=== PATIENT | female | born 1955 | race Caucasian/White ===

== ENCOUNTER 2019-10-12 19:00 | Inpatient (IN) | payer MEDICARE, MEDICAID ==
[~2019-10-12] VITALS: Ht 154.9 cm; Wt 77.5 kg
[2019-10-12] MEDS ORDERED: IV RINGERS SOLUTION,LACTATED 1,000 ML IV SCH (19:16)
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
[2019-10-12 19:44] LABS: BARBITURATES NEG (NEG); BENZODIAZEPINES POS (NEG); CANNABINOIDS NEG (NEG); COCAINE NEG (NEG); METHADONE NEG (NEG); OPIATES POS (NEG); PHENCYCLIDINE NEG (NEG)
[2019-10-12 19:48] LABS: AMPHETAMINE/METHAMPHETAMINE NEG (NEG)
[2019-10-12 20:05] LABS: BILIRUBIN,URINE NEG (NEG); CLARITY,URINE CLOUDY; COLOR,URINE AMBER; GLUCOSE,URINE NEG (NEG); NITRITE,URINE POS (NEG)
[2019-10-12 20:06] LABS: BACTERIA,URINE MANY /HPF (0-FEW); SQUAMOUS EPITHELIAL CELL,UR MANY /LPF
[2019-10-12 20:11] LABS: BASO # 0.1 x10^3/uL (0.0-0.2); BASO % 1 % (0-3); EOS # 0.3 x10^3/uL (0.0-0.7); EOS % 5 % (0-3); HEMATOCRIT 35.2 % (36.0-47.0); HEMOGLOBIN 11.9 g/dL (12.0-15.5); LYMPH # 0.9 x10^3/uL (1.0-4.8); LYMPH % 15 % (24-48); MEAN CORPUSCULAR HEMOGLOBIN 30 pg (25-35); MEAN CORPUSCULAR HGB CONC 34 g/dL (31-37); MEAN CORPUSCULAR VOLUME 89 fL (79-100); MONO % 16 % (0-9); NEUT # 3.8 x10^3uL (1.8-7.7); NEUT % 62 % (31-73); PLATELET COUNT 358 x10^3/uL (140-400); RED BLOOD COUNT 3.95 x10^6/uL (3.50-5.40); RED CELL DISTRIBUTION WIDTH 14.7 % (11.5-14.5); WHITE BLOOD COUNT 6.1 x10^3/uL (4.0-11.0)
[2019-10-12 20:18] LABS: CREATININE 0.9 mg/dL (0.6-1.0); GFR 63.2; POTASSIUM 4.3 mmol/L (3.5-5.1)
[2019-10-12 20:30] LABS: ALBUMIN 3.5 g/dL (3.4-5.0); DIRECT BILIRUBIN 0.3 mg/dL (0.0-0.2); MAGNESIUM 2.2 mg/dL (1.8-2.4); TOTAL BILIRUBIN 0.6 mg/dL (0.2-1.0); TOTAL PROTEIN 6.7 g/dL (6.4-8.2)
[2019-10-12] MEDS ORDERED: SODIUM BICARB ADULT 8.4% 50 MEQ/50 ML DISP.SYRIN. IV ONE (20:30)
[2019-10-12] MEDS ORDERED: SMZ/TMP 800/160MG TABLET. PO ONE (20:30)
[2019-10-12] MEDS ORDERED: LORazepam 1 MG TABLET PO ONE (20:30)
--- NOTE | 2019-10-12 20:30 | EKG ---
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
--- NOTE | 2019-10-12 20:40 | RAD ---
Exam: Chest one view INDICATION: Retention, irregular heartbeat TECHNIQUE: Frontal view of the chest Comparisons: None FINDINGS: Heart is enlarged. Pulmonary vessels are within normal limits. The lung and pleural spaces are clear. IMPRESSION: No acute pulmonary process. Electronically signed by: Stephanie Cruz MD (10/12/2019 8:37 PM) [id number]
--- NOTE | 2019-10-12 20:41 | RAD ---
EXAM: CT HEAD WITHOUT CONTRAST. HISTORY: Altered mental status. TECHNIQUE: Computed tomography of the head was performed without intravenous contrast. One or more of the following individualized dose reduction techniques were utilized for this examination: 1. Automated exposure control. 2. Adjustment of the mA and/or kV according to patient size. 3. Use of iterative reconstruction technique. COMPARISON: None. FINDINGS: There is no intracranial hemorrhage. Fernandez-white differentiation is preserved. The ventricles are normal in size and position. The visualized paranasal sinuses appear clear. The orbits are unremarkable. The temporal bones are unremarkable. The calvarium reveals no suspicious lesions. IMPRESSION: 1. No acute intracranial findings. Electronically signed by: Jaime Gabriel MD (10/12/2019 8:38 PM) [facility]
--- NOTE | 2019-10-12 20:44 | RAD ---
EXAM: LEFT ANKLE 3 VIEWS. HISTORY: Fracture fixation, pain COMPARISON: None. FINDINGS: Three views of the left ankle are obtained. There are changes of internal fixation of a distal tibial fracture with an antegrade intramedullary nail fixed proximally and distally by 2 screws. There is one cortical width lateral displacement of the distal fracture fragment. There is an oblique fracture of the distal fibular metaphysis with one cortical width lateral displacement of the distal fracture fragment. There is early periosteal reaction. The joint spaces and alignment of the knee and ankle appear maintained. There are small plantar and posterior calcaneal spurs. IMPRESSION: 1. Early healing of tibial and fibular fractures as detailed above. Electronically signed by: Jaime Gabriel MD (10/12/2019 8:42 PM) [facility]
[2019-10-12] MEDS ORDERED: ACETAMINOPHEN 325 MG TABLET PO PRN (20:45)
[2019-10-12] MEDS ORDERED: HYDROXYCHLOROQUINE 200 MG TABLET PO SCH (21:00)
[2019-10-12] MEDS ORDERED: SMZ/TMP 800/160MG TABLET. PO SCH (21:00)
[2019-10-12] MEDS: ENOXAPARIN ** NOTE DOSE ** SYRINGE SQ SCH (21:30)
[2019-10-12 22:37] VITALS: BP 162/100
[2019-10-12] MEDS ORDERED: OLAN15TA3 PO (23:29)
[2019-10-12] MEDS ORDERED: MELA3TAB4 PO (23:29)
[2019-10-12] MEDS ORDERED: PROP20TA PO (23:29)
[2019-10-12] MEDS ORDERED: TRAZ150T49 PO (23:29)
[2019-10-12] MEDS ORDERED: DEXT1CAP PO (23:29)
[2019-10-12] MEDS ORDERED: LOPE2TAB27 PO ×2 (23:29)
[2019-10-12] MEDS ORDERED: [UNRECOGNIZED DRUG - CODE] PO (23:29)
[2019-10-12] MEDS ORDERED: DIPH50CA PO (23:29)
[2019-10-12] MEDS ORDERED: HALO5TAB PO (23:29)
[2019-10-12] MEDS ORDERED: OMEP20CA16 PO (23:29)
[2019-10-12] MEDS ORDERED: MAG-95 PO (23:29)
[2019-10-12] MEDS ORDERED: MV-M1CAP15 PO (23:29)
[2019-10-12] MEDS ORDERED: MAGN400O7 PO (23:29)
[2019-10-12] MEDS ORDERED: OLAN5TAB9 PO (23:29)
[2019-10-12] MEDS ORDERED: ACET500T68 PO (23:29)
[2019-10-12] MEDS ORDERED: BISM262O17 PO (23:29)
[2019-10-12] MEDS ORDERED: VILA40TA PO (23:29)
[2019-10-12] MEDS ORDERED: DIVA500T17 PO (23:29)
[2019-10-12] MEDS ORDERED: CLON1TAB PO (23:29)
[2019-10-12] MEDS ORDERED: ASPI-630 PO (23:29)
[2019-10-12] MEDS ORDERED: BENZ200C47 PO (23:29)
[2019-10-12] MEDS ORDERED: BUSP5TAB PO (23:29)
[2019-10-12] MEDS ORDERED: OXCA600T9 PO (23:29)
[2019-10-12] MEDS ORDERED: MAGNESIUM HYDROXIDE 2,400 MG/30 ML ORAL.SUSP. PO PRN (23:30)
[2019-10-12] MEDS ORDERED: BISMUTH SUBSALICYLATE 262 MG/15 ML ORAL.SUSP 236ML BOTTLE. PO PRN (23:30)
[2019-10-12] MEDS ORDERED: LOPERAMIDE HCL 4 MG PO PRN (23:30)
[2019-10-12] MEDS ORDERED: MAG HYDROX/AL HYDROX/SIMETH 30 ML ORAL.SUSP PO PRN (23:30)
[2019-10-12] MEDS ORDERED: guaiFENesin DM 200MG/20MG 10 ML SYRUP PO PRN (23:45)
[2019-10-12] MEDS ORDERED: LOPERAMIDE 2 MG CAPSULE PO PRN (23:45)
[2019-10-13] MEDS: HALOPERIDOL 5 MG TABLET PO PRN (00:25)
[2019-10-13] MEDS ORDERED: traZODone 50 MG TABLET. PO ONE (00:30)
[2019-10-13] MEDS ORDERED: OLANZapine 2.5 MG TABLET PO ONE (00:30)
[2019-10-13] MEDS ORDERED: diphenhydrAMINE HCL 25 MG CAPSULE PO ONE ×2 (00:30→20:00)
[2019-10-13] MEDS ORDERED: DIVALPROEX ER 500 MG TAB.ER.24H PO ONE (00:30)
[2019-10-13] MEDS ORDERED: MAGNESIUM HYDROXIDE 2,400 MG/30 ML ORAL.SUSP. PO PRN (01:45)
[2019-10-13] MEDS ORDERED: MAG HYDROX/AL HYDROX/SIMETH 30 ML ORAL.SUSP PO PRN (01:45)
[2019-10-13] MEDS: ACETAMINOPHEN 325 MG TABLET PO PRN ×2 (05:11→08:13)
[2019-10-13 05:28] VITALS: BP 147/82
[2019-10-13 07:23] LABS: BASO % 0 % (0-3); EOS # 0.1 x10^3/uL (0.0-0.7); EOS % 1 % (0-3); HEMATOCRIT 33.8 % (36.0-47.0); HEMOGLOBIN 11.6 g/dL (12.0-15.5); LYMPH # 0.8 x10^3/uL (1.0-4.8); LYMPH % 10 % (24-48); MEAN CORPUSCULAR HEMOGLOBIN 31 pg (25-35); MEAN CORPUSCULAR HGB CONC 34 g/dL (31-37); MEAN CORPUSCULAR VOLUME 90 fL (79-100); MONO % 12 % (0-9); NEUT # 6.3 x10^3uL (1.8-7.7); NEUT % 77 % (31-73); PLATELET COUNT 401 x10^3/uL (140-400); RED BLOOD COUNT 3.77 x10^6/uL (3.50-5.40); RED CELL DISTRIBUTION WIDTH 14.6 % (11.5-14.5); WHITE BLOOD COUNT 8.2 x10^3/uL (4.0-11.0)
[2019-10-13 07:34] LABS: ALBUMIN 3.3 g/dL (3.4-5.0); ALBUMIN/GLOBULIN RATIO 0.9 (1.0-1.7); ALK PHOS 248 U/L (46-116); ALT (SGPT) 26 U/L (14-59); ANION GAP 10 (6-14); AST (SGOT) 19 U/L (15-37); BLOOD UREA NITROGEN 11 mg/dL (7-20); BUN/CREATININE RATIO 12 (6-20); CALCIUM 8.6 mg/dL (8.5-10.1); CARBON DIOXIDE 27 mmol/L (21-32); CHLORIDE 91 mmol/L (98-107); CREATININE 0.9 mg/dL (0.6-1.0); GFR 63.2; GLUCOSE 259 mg/dL (70-99); MAGNESIUM 2.1 mg/dL (1.8-2.4); POTASSIUM 4.1 mmol/L (3.5-5.1); SODIUM 128 mmol/L (136-145); TOTAL BILIRUBIN 0.7 mg/dL (0.2-1.0); TOTAL PROTEIN 6.8 g/dL (6.4-8.2)
[2019-10-13 07:38] LABS: VAL ACID 29 mcg/mL (50-100)
[2019-10-13] MEDS ORDERED: VILAZODONE HCL 20 MG PO SCH (08:00)
[2019-10-13] MEDS: busPIRone 5 MG TABLET. PO SCH ×2 (08:13→19:52)
[2019-10-13] MEDS: BENZONATATE 100 MG CAPSULE. PO SCH ×3 (08:13→19:53)
[2019-10-13] MEDS: LACTOBACILLUS RHAMNOSUS GG 1 CAPSULE. PO SCH ×2 (08:13→19:52)
[2019-10-13] MEDS: ASPIRIN CHEWABLE 81 MG TABLET. PO SCH (08:14)
[2019-10-13] MEDS: clonazePAM 1 MG TABLET PO SCH ×3 (08:14→19:52)
[2019-10-13] MEDS: ENOXAPARIN ** NOTE DOSE ** SYRINGE SQ SCH (08:16)
[2019-10-13] MEDS: MULTIVITAMIN with MINERAL TABLET. PO SCH (08:16)
[2019-10-13] MEDS: PANTOPRAZOLE 40 MG TABLET. PO SCH (08:17)
[2019-10-13] MEDS: OLANZapine 5 MG TABLET PO SCH ×2 (08:17→19:50)
[2019-10-13] MEDS ORDERED: SMZ/TMP 800/160MG TABLET. PO SCH (09:00)
[2019-10-13] MEDS ORDERED: HYDROXYCHLOROQUINE 200 MG TABLET PO SCH (09:00)
[2019-10-13] MEDS: DEXTROMETHORPHAN/QUINIDINE 20/10MG CAPSULE. PO SCH ×2 (12:23→19:51)
[2019-10-13] MEDS: PROPRANOLOL 20 MG TABLET. PO SCH ×2 (12:24→19:50)
--- NOTE | 2019-10-13 12:48 | RAD ---
EXAMINATION: VENOUS LOWER EXTREMITY LEFT HISTORY: Left lower extremity swelling. Fracture involving the left lower extremity with reported surgery. COMPARISON/CORRELATION: None FINDINGS: Left lower extremity duplex venous ultrasound exam was performed. Grayscale, color Doppler, and spectral Doppler imaging was performed. Compression and augmentation was performed. The left common femoral vein, superficial femoral vein, popliteal vein, and saphenofemoral junction are normal with no evidence of deep venous thrombus. Visualization of the peroneal veins is limited. Visualized left calf veins are unremarkable. Normal compressibility and augmentation is evident. IMPRESSION: Normal left lower extremity duplex ultrasound exam. No evidence of deep venous thrombus involving the left lower extremity. Electronically signed by: Pawel Kwong MD (10/13/2019 12:45 PM) [id number]
[2019-10-13] MEDS: oxyCODONE IR 5 MG TABLET PO PRN ×2 (14:23→19:51)
[2019-10-13 16:03] VITALS: BP 138/76
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
[2019-10-13 19:07] LABS: THYROXINE 7.5 ug/dL (4.5-12.0)
[2019-10-13] MEDS: CEFDINIR 300 MG CAPSULE PO SCH (19:50)
[2019-10-13] MEDS: traZODone 150 MG TABLET. PO SCH (19:50)
[2019-10-13] MEDS ORDERED: MELATONIN 3 MG TABLET PO SCH (21:00)
[2019-10-13] MEDS ORDERED: DIVALPROEX ER 500 MG TAB.ER.24H PO SCH (21:00)
[2019-10-13] MEDS ORDERED: diphenhydrAMINE HCL 25 MG CAPSULE PO SCH (21:00)
--- NOTE | 2019-10-13 22:20 | PDOC ---
Exam Note: John Note: Please also refer to the separate dictated note~for this date of service dictated separately.~Patient seen individually. Discussed the patient with Nursing staff reviewed the chart.~Reviewed interim history and current functioning. Reviewed vital signs,~Labs/ Radiology~and current medications noted below. Continue current treatment with the changes noted in the dictated addendum note Assessment: Vital Signs/I&O: Vital Signs Date Time Temp Pulse Resp B/P (MAP) Pulse Ox O2 Delivery O2 Flow Rate FiO2 10/13/19 19:50 84 138/76 10/13/19 16:03 97.7 20 96 10/12/19 22:37 Room Air I & O 10/12/19 10/12/19 10/13/19 15:00 23:00 07:00 Intake Total 200 ml Balance 200 ml Labs: Laboratory Tests Test 10/13/19 06:42 White Blood Count 8.2 x10^3/uL (4.0-11.0) Red Blood Count 3.77 x10^6/uL (3.50-5.40) Hemoglobin 11.6 g/dL (12.0-15.5) L Hematocrit 33.8 % (36.0-47.0) L Mean Corpuscular Volume 90 fL (79-100) Mean Corpuscular Hemoglobin 31 pg (25-35) Mean Corpuscular Hemoglobin Concent 34 g/dL (31-37) Red Cell Distribution Width 14.6 % (11.5-14.5) H Platelet Count 401 x10^3/uL (140-400) H Neutrophils (%) (Auto) 77 % (31-73) H Lymphocytes (%) (Auto) 10 % (24-48) L Monocytes (%) (Auto) 12 % (0-9) H Eosinophils (%) (Auto) 1 % (0-3) Basophils (%) (Auto) 0 % (0-3) Neutrophils # (Auto) 6.3 x10^3uL (1.8-7.7) Lymphocytes # (Auto) 0.8 x10^3/uL (1.0-4.8) L Monocytes # (Auto) 1.0 x10^3/uL (0.0-1.1) Eosinophils # (Auto) 0.1 x10^3/uL (0.0-0.7) Basophils # (Auto) 0.0 x10^3/uL (0.0-0.2) Sodium Level 128 mmol/L (136-145) L Potassium Level 4.1 mmol/L (3.5-5.1) Chloride Level 91 mmol/L (98-107) L Carbon Dioxide Level 27 mmol/L (21-32) Anion Gap 10 (6-14) Blood Urea Nitrogen 11 mg/dL (7-20) Creatinine 0.9 mg/dL (0.6-1.0) Estimated GFR (Cockcroft-Gault) 63.2 BUN/Creatinine Ratio 12 (6-20) Glucose Level 259 mg/dL (70-99) H Calcium Level 8.6 mg/dL (8.5-10.1) Magnesium Level 2.1 mg/dL (1.8-2.4) Total Bilirubin 0.7 mg/dL (0.2-1.0) Aspartate Amino Transferase (AST) 19 U/L (15-37) Alanine Aminotransferase (ALT) 26 U/L (14-59) Alkaline Phosphatase 248 U/L (46-116) H Total Protein 6.8 g/dL (6.4-8.2) Albumin 3.3 g/dL (3.4-5.0) L Albumin/Globulin Ratio 0.9 (1.0-1.7) L Valproic Acid Level 29 mcg/mL (50-100) L Valproic Acid Last Dose Date 10/13/19 Valproic Acid Last Dose Time 0000 Current Medications: Meds: Current Medications Medications (Trade) Dose Ordered Sig/Yuki Route PRN Reason Start Time Stop Time Status Last Admin Dose Admin Trimethoprim/ Sulfamethoxazole (Bactrim Ds) 1 tab BID PO 10/13/19 09:00 10/13/19 14:06 DC 10/13/19 08:13 Aspirin (Aspirin Chewable) 81 mg DAILY PO 10/13/19 09:00 10/13/19 08:14 Buspirone HCl (Buspar) 5 mg BID PO 10/13/19 09:00 10/13/19 19:52 Clonazepam (KlonoPIN) 1 mg TID PO 10/13/19 09:00 10/13/19 19:52 Dextromethorphan/ Quinidine (Nuedexta 20-10 Mg Capsule) 1 cap BID PO 10/13/19 09:00 10/13/19 19:51 Divalproex Sodium (Depakote Er) 500 mg QHS PO 10/13/19 21:00 10/13/19 19:49 Haloperidol (Haldol) 5 mg PRN TID PRN PO ANXIETY / AGITATION 10/12/19 23:30 10/13/19 00:25 Melatonin (Melatonin) 12 mg QHS PO 10/13/19 21:00 10/13/19 19:51 Olanzapine (ZyPREXA) 5 mg DAILY PO 10/13/19 09:00 10/13/19 08:17 Propranolol HCl (Inderal) 20 mg BID PO 10/13/19 09:00 10/13/19 19:50 Trazodone HCl (Desyrel) 150 mg QHS PO 10/13/19 21:00 10/13/19 19:50 Benzonatate (Tessalon Perle) 200 mg [id number] PO 10/13/19 09:00 10/13/19 19:53 Diphenhydramine HCl (Benadryl) 50 mg QHS PO 10/13/19 21:00 10/13/19 19:51 Multivitamins/ Calcium (Thera-M Plus) 1 tab DAILY PO 10/13/19 09:00 10/13/19 08:16 Olanzapine (ZyPREXA) 15 mg QHS PO 10/13/19 21:00 10/13/19 19:50 Pantoprazole Sodium (Protonix) 40 mg DAILYAC PO 10/13/19 07:30 10/13/19 08:17 Oxcarbazepine (Trileptal) 600 mg TID PO 10/13/19 09:00 10/13/19 19:53 Trazodone HCl (Desyrel) 150 mg 1X ONCE PO 10/13/19 00:30 10/13/19 00:31 DC 10/13/19 00:23 Olanzapine (ZyPREXA) 2.5 mg 1X ONCE PO 10/13/19 00:30 10/13/19 00:31 DC 10/13/19 00:22 Diphenhydramine HCl (Benadryl) 25 mg 1X ONCE PO 10/13/19 00:30 10/13/19 00:31 DC 10/13/19 00:23 Divalproex Sodium (Depakote Er) 500 mg 1X ONCE PO 10/13/19 00:30 10/13/19 00:31 DC 10/13/19 00:22 Acetaminophen (Tylenol) 650 mg PRN Q6HRS PRN PO PAIN / TEMP > 100.3'F 10/13/19 01:45 10/13/19 08:13 Lactobacillus Rhamnosus (Culturelle) 1 cap BID PO 10/13/19 09:00 10/13/19 19:52 Oxycodone HCl (Roxicodone) 5 mg PRN Q4HRS PRN PO PAIN 10/13/19 14:00 10/13/19 19:51 Cefdinir (Omnicef) 300 mg BID PO 10/13/19 21:00 10/13/19 19:50 I have reviewed the current psychotropics carefully including drug interactions. Risk benefit ratio favors no change other than as noted in my dictated progress note. Diagnosis: Problems: (1) Major depressive disorder, recurrent episode YOHANNES LITTLE MD Oct 13, 2019 22:20
[2019-10-14] MEDS: oxyCODONE IR 5 MG TABLET PO PRN ×3 (00:44→14:41)
[2019-10-14] MEDS: traZODone 150 MG TABLET. PO PRN (00:44)
[2019-10-14 01:07] LABS: HEMOGLOBIN A1C 6.3 % (4.8-5.6)
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
[2019-10-14 06:42] VITALS: BP 141/75
[2019-10-14] MEDS: PANTOPRAZOLE 40 MG TABLET. PO SCH (08:28)
[2019-10-14] MEDS: ASPIRIN CHEWABLE 81 MG TABLET. PO SCH (08:28)
[2019-10-14] MEDS: busPIRone 5 MG TABLET. PO SCH ×2 (08:28→20:22)
[2019-10-14] MEDS: LACTOBACILLUS RHAMNOSUS GG 1 CAPSULE. PO SCH ×2 (08:29→20:22)
[2019-10-14] MEDS: clonazePAM 1 MG TABLET PO SCH ×3 (08:29→20:22)
[2019-10-14] MEDS: PROPRANOLOL 20 MG TABLET. PO SCH ×2 (08:29→20:21)
[2019-10-14] MEDS: CEFDINIR 300 MG CAPSULE PO SCH ×2 (08:30→20:22)
[2019-10-14] MEDS: DEXTROMETHORPHAN/QUINIDINE 20/10MG CAPSULE. PO SCH ×2 (08:30→20:21)
[2019-10-14] MEDS: BENZONATATE 100 MG CAPSULE. PO SCH ×3 (08:30→20:22)
[2019-10-14] MEDS: MULTIVITAMIN with MINERAL TABLET. PO SCH (08:30)
[2019-10-14] MEDS: OLANZapine 5 MG TABLET PO SCH ×2 (08:31→20:21)
[2019-10-14] MEDS: ENOXAPARIN 40 MG/0.4 ML SYRINGE. SQ SCH (08:34)
[2019-10-14] MEDS: ACETAMINOPHEN 325 MG TABLET PO PRN (14:41)
[2019-10-14 16:55] VITALS: BP 134/78
[2019-10-14] MEDS ORDERED: CHOLECALCIFEROL (VITAMIN D3) 50,000 UNIT CAPSULE PO SCH (17:30)
[2019-10-14] MEDS: DIVALPROEX ER 500 MG TAB.ER.24H PO SCH (20:22)
[2019-10-14] MEDS: traZODone 150 MG TABLET. PO SCH (20:22)
[2019-10-14] MEDS: MELATONIN 3 MG TABLET PO SCH (20:23)
--- NOTE | 2019-10-14 22:34 | PDOC ---
Exam Note: John Note: Please also refer to the separate dictated note~for this date of service dictated separately.~Patient seen individually. Discussed the patient with Nursing staff reviewed the chart.~Reviewed interim history and current functioning. Reviewed vital signs,~Labs/ Radiology~and current medications noted below. Continue current treatment with the changes noted in the dictated addendum note Assessment: Vital Signs/I&O: Vital Signs Date Time Temp Pulse Resp B/P (MAP) Pulse Ox O2 Delivery O2 Flow Rate FiO2 10/14/19 20:21 80 134/78 10/14/19 16:55 98.0 20 96 Room Air 10/13/19 21:00 2.0 I & O 10/13/19 10/13/19 10/14/19 15:00 23:00 07:00 Intake Total 960 ml 480 ml 240 ml Balance 960 ml 480 ml 240 ml Current Medications: Meds: Current Medications Medications (Trade) Dose Ordered Sig/Yuki Route PRN Reason Start Time Stop Time Status Last Admin Dose Admin Enoxaparin Sodium (Lovenox 40mg Syringe) 40 mg DAILY SQ 10/14/19 09:00 10/14/19 08:34 Divalproex Sodium (Depakote Er) 1,000 mg QHS PO 10/14/19 21:00 10/14/19 20:22 Melatonin (Melatonin) 6 mg QHS PO 10/14/19 21:00 10/14/19 20:23 I have reviewed the current psychotropics carefully including drug interactions. Risk benefit ratio favors no change other than as noted in my dictated progress note. Diagnosis: Problems: (1) Schizoaffective disorder, bipolar type (2) Bipolar disorder, current episode mixed, severe, with psychotic features (3) Anxiety disorder, unspecified (4) Impulse control disorder, unspecified (5) Major depressive disorder, recurrent episode YOHANNES LITTLE MD Oct 14, 2019 22:34
[2019-10-15 05:03] VITALS: BP 161/72
[2019-10-15] MEDS: oxyCODONE IR 5 MG TABLET PO PRN ×3 (07:02→19:35)
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
[2019-10-15] MEDS: PANTOPRAZOLE 40 MG TABLET. PO SCH (08:12)
[2019-10-15] MEDS: ASPIRIN CHEWABLE 81 MG TABLET. PO SCH (08:12)
[2019-10-15] MEDS: busPIRone 5 MG TABLET. PO SCH ×2 (08:12→19:34)
[2019-10-15] MEDS: LACTOBACILLUS RHAMNOSUS GG 1 CAPSULE. PO SCH ×2 (08:13→19:34)
[2019-10-15] MEDS: DEXTROMETHORPHAN/QUINIDINE 20/10MG CAPSULE. PO SCH ×2 (08:14→19:34)
[2019-10-15] MEDS: PROPRANOLOL 20 MG TABLET. PO SCH ×2 (08:14→19:33)
[2019-10-15] MEDS: CEFDINIR 300 MG CAPSULE PO SCH (08:15)
[2019-10-15] MEDS: MULTIVITAMIN with MINERAL TABLET. PO SCH (08:15)
[2019-10-15] MEDS: BENZONATATE 100 MG CAPSULE. PO SCH ×3 (08:15→19:34)
[2019-10-15] MEDS: OLANZapine 5 MG TABLET PO SCH ×2 (08:16→19:33)
[2019-10-15] MEDS: ENOXAPARIN 40 MG/0.4 ML SYRINGE. SQ SCH (08:17)
[2019-10-15] MEDS: clonazePAM 1 MG TABLET PO SCH ×3 (08:19→19:34)
[2019-10-15] MEDS: CHOLECALCIFEROL (VITAMIN D3) 50,000 UNIT CAPSULE PO SCH (08:19)
[2019-10-15 08:38] LABS: CALCIUM 8.7 mg/dL (8.5-10.1); CREATININE 0.8 mg/dL (0.6-1.0); GFR 72.4; POTASSIUM 4.4 mmol/L (3.5-5.1)
[2019-10-15] MEDS: ACETAMINOPHEN 325 MG TABLET PO PRN (12:22)
[2019-10-15 13:42] LABS: BILIRUBIN,URINE NEG (NEG); CLARITY,URINE HAZY; COLOR,URINE YELLOW; GLUCOSE,URINE 100 mg/dL (NEG)
[2019-10-15 13:43] LABS: BACTERIA,URINE FEW /HPF (0-FEW); NITRITE,URINE NEG (NEG); SQUAMOUS EPITHELIAL CELL,UR MANY /LPF
[2019-10-15 15:41] VITALS: BP 127/69
[2019-10-15] MEDS: traZODone 150 MG TABLET. PO SCH (19:34)
[2019-10-15] MEDS: DIVALPROEX ER 500 MG TAB.ER.24H PO SCH (19:34)
[2019-10-15] MEDS: MELATONIN 3 MG TABLET PO SCH (19:35)
--- NOTE | 2019-10-15 22:07 | PDOC ---
Exam Note: John Note: Please also refer to the separate dictated note~for this date of service dictated separately.~Patient seen individually. Discussed the patient with Nursing staff reviewed the chart.~Reviewed interim history and current functioning. Reviewed vital signs,~Labs/ Radiology~and current medications noted below. Continue current treatment with the changes noted in the dictated addendum note Assessment: Vital Signs/I&O: Vital Signs Date Time Temp Pulse Resp B/P (MAP) Pulse Ox O2 Delivery O2 Flow Rate FiO2 10/15/19 20:36 96 10/15/19 19:33 79 127/69 10/15/19 15:41 98.1 19 10/14/19 16:55 Room Air 10/13/19 21:00 2.0 I & O 10/14/19 10/14/19 10/15/19 15:00 23:00 07:00 Intake Total 960 ml 120 ml Balance 960 ml 120 ml Labs: Laboratory Tests Test 10/15/19 08:09 10/15/19 10:25 Sodium Level 128 mmol/L (136-145) L Potassium Level 4.4 mmol/L (3.5-5.1) Chloride Level 92 mmol/L (98-107) L Carbon Dioxide Level 29 mmol/L (21-32) Anion Gap 7 (6-14) Blood Urea Nitrogen 11 mg/dL (7-20) Creatinine 0.8 mg/dL (0.6-1.0) Estimated GFR (Cockcroft-Gault) 72.4 Glucose Level 164 mg/dL (70-99) H Calcium Level 8.7 mg/dL (8.5-10.1) Urine Collection Type Unknown Urine Color Yellow Urine Clarity Hazy Urine pH 5.5 Urine Specific [place] 1.025 Urine Protein Neg (NEG-TRACE) Urine Glucose (UA) 100 mg/dL (NEG) Urine Ketones (Stick) Neg mg/dL (NEG) Urine Blood Neg (NEG) Urine Nitrite Neg (NEG) Urine Bilirubin Neg (NEG) Urine Urobilinogen Dipstick 4.0 mg/dL (0.2 mg/dL) Urine Leukocyte Esterase Neg (NEG) Urine RBC 3-5 /HPF (0-2) Urine WBC 1-4 /HPF (0-4) Urine Squamous Epithelial Cells Many /LPF Urine Bacteria Few /HPF (0-FEW) Urine Mucus Marked /LPF Current Medications: Meds: Current Medications Medications (Trade) Dose Ordered Sig/Yuki Route PRN Reason Start Time Stop Time Status Last Admin Dose Admin Vitamin D (Vitamin D3) 50,000 unit WEEKLY PO 10/15/19 09:00 10/15/19 08:19 I have reviewed the current psychotropics carefully including drug interactions. Risk benefit ratio favors no change other than as noted in my dictated progress note. Diagnosis: Problems: (1) Major depressive disorder, recurrent episode (2) Schizoaffective disorder, bipolar type (3) Impulse control disorder, unspecified (4) Anxiety disorder, unspecified (5) Bipolar disorder, current episode mixed, severe, with psychotic features (6) UTI (urinary tract infection) (7) Mild cognitive impairment YOHANNES LITTLE MD Oct 15, 2019 22:07
[2019-10-16] MEDS: oxyCODONE IR 5 MG TABLET PO PRN ×3 (05:20→16:21)
[2019-10-16 06:23] VITALS: BP 142/68
--- NOTE | 2019-10-16 07:52 | PDOC ---
Exam Note: John Note: This note is a late entry for 10/15/2019 covers elements not covered in my initial note. Subjective: The patient was seen individually in the evening of 10/15/2019. Per Corine MCGOWAN, she slept 6-1/2 hours previous night. UA is positive and she remains on Ceftin 300 mg b.i.d. Review of Systems: She ambulates with standby assist for transfers and ambulation. No CV, , pulmonary, eye, ENT system symptoms on review. Mental Status Exam: Oriented to herself and situation. Speech coherent, rapid at times. Abstraction is fair. Computation impaired. Language function intact. Attention span short. Mood and affect remains anxious, labile. No suicidal or homicidal ideation. Laboratory Data: Reviewed. Sodium 128 and we will repeat labs including valproic acid level. Impression: Bipolar disorder mixed with psychotic features. Mild cognitive impairment. Anxiety disorder unspecified. Impulse control disorder unspecified. UTI. Plan: We will repeat labs in the morning including valproic acid level. Continue rest psychotropics unchanged. Assessment: Vital Signs/I&O: Vital Signs Date Time Temp Pulse Resp B/P (MAP) Pulse Ox O2 Delivery O2 Flow Rate FiO2 10/16/19 07:19 97 10/16/19 06:23 98.0 86 18 142/68 (92) Room Air 10/13/19 21:00 2.0 I & O 10/15/19 10/15/19 10/16/19 15:00 23:00 07:00 Intake Total 720 ml 360 ml Balance 720 ml 360 ml Labs: Laboratory Tests Test 10/15/19 08:09 10/15/19 10:25 Sodium Level 128 mmol/L (136-145) L Potassium Level 4.4 mmol/L (3.5-5.1) Chloride Level 92 mmol/L (98-107) L Carbon Dioxide Level 29 mmol/L (21-32) Anion Gap 7 (6-14) Blood Urea Nitrogen 11 mg/dL (7-20) Creatinine 0.8 mg/dL (0.6-1.0) Estimated GFR (Cockcroft-Gault) 72.4 Glucose Level 164 mg/dL (70-99) H Calcium Level 8.7 mg/dL (8.5-10.1) Urine Collection Type Unknown Urine Color Yellow Urine Clarity Hazy Urine pH 5.5 Urine Specific [place] 1.025 Urine Protein Neg (NEG-TRACE) Urine Glucose (UA) 100 mg/dL (NEG) Urine Ketones (Stick) Neg mg/dL (NEG) Urine Blood Neg (NEG) Urine Nitrite Neg (NEG) Urine Bilirubin Neg (NEG) Urine Urobilinogen Dipstick 4.0 mg/dL (0.2 mg/dL) Urine Leukocyte Esterase Neg (NEG) Urine RBC 3-5 /HPF (0-2) Urine WBC 1-4 /HPF (0-4) Urine Squamous Epithelial Cells Many /LPF Urine Bacteria Few /HPF (0-FEW) Urine Mucus Marked /LPF Current Medications: Meds: Current Medications Medications (Trade) Dose Ordered Sig/Yuki Route PRN Reason Start Time Stop Time Status Last Admin Dose Admin Vitamin D (Vitamin D3) 50,000 unit WEEKLY PO 10/15/19 09:00 10/15/19 08:19 I have reviewed the current psychotropics carefully including drug interactions. Risk benefit ratio favors no change other than as noted in my dictated progress note. Diagnosis: Problems: (1) Bipolar disorder, current episode mixed, severe, with psychotic features (2) Impulse control disorder, unspecified (3) Anxiety disorder, unspecified (4) UTI (urinary tract infection) (5) Mild cognitive impairment YOHANNES LITTLE MD Oct 16, 2019 07:52
[2019-10-16] MEDS: busPIRone 5 MG TABLET. PO SCH ×2 (08:00→19:49)
[2019-10-16] MEDS: BENZONATATE 100 MG CAPSULE. PO SCH ×3 (08:00→19:49)
[2019-10-16] MEDS: ASPIRIN CHEWABLE 81 MG TABLET. PO SCH (08:00)
[2019-10-16] MEDS: OLANZapine 5 MG TABLET PO SCH ×2 (08:00→19:50)
[2019-10-16] MEDS: MULTIVITAMIN with MINERAL TABLET. PO SCH (08:01)
[2019-10-16] MEDS: DEXTROMETHORPHAN/QUINIDINE 20/10MG CAPSULE. PO SCH ×2 (08:01→21:03)
[2019-10-16] MEDS: clonazePAM 1 MG TABLET PO SCH ×3 (08:01→21:02)
[2019-10-16] MEDS: PROPRANOLOL 20 MG TABLET. PO SCH ×2 (08:02→21:02)
[2019-10-16] MEDS: LACTOBACILLUS RHAMNOSUS GG 1 CAPSULE. PO SCH ×2 (08:02→19:48)
[2019-10-16] MEDS: ENOXAPARIN 40 MG/0.4 ML SYRINGE. SQ SCH (08:02)
[2019-10-16 16:27] VITALS: BP 146/94
[2019-10-16] MEDS: DIVALPROEX ER 500 MG TAB.ER.24H PO SCH (19:49)
[2019-10-16] MEDS: traZODone 150 MG TABLET. PO SCH (19:49)
[2019-10-16] MEDS: MELATONIN 3 MG TABLET PO SCH (19:49)
[2019-10-16] MEDS: ACETAMINOPHEN 325 MG TABLET PO PRN (19:53)
--- NOTE | 2019-10-16 22:11 | PDOC ---
Exam Note: John Note: Please also refer to the separate dictated note~for this date of service dictated separately.~Patient seen individually. Discussed the patient with Nursing staff reviewed the chart.~Reviewed interim history and current functioning. Reviewed vital signs,~Labs/ Radiology~and current medications noted below. Continue current treatment with the changes noted in the dictated addendum note Assessment: Vital Signs/I&O: Vital Signs Date Time Temp Pulse Resp B/P (MAP) Pulse Ox O2 Delivery O2 Flow Rate FiO2 10/16/19 21:02 87 146/94 10/16/19 17:31 97 10/16/19 16:27 97.9 20 10/16/19 06:23 Room Air 10/13/19 21:00 2.0 I & O 10/15/19 10/15/19 10/16/19 15:00 23:00 07:00 Intake Total 720 ml 360 ml Balance 720 ml 360 ml Current Medications: Meds: Current Medications Medications (Trade) Dose Ordered Sig/Yuki Route PRN Reason Start Time Stop Time Status Last Admin Dose Admin Clonazepam (KlonoPIN) 1 mg BID PO 10/16/19 21:00 10/16/19 21:02 Oxcarbazepine (Trileptal) 300 mg BID PO 10/16/19 21:00 10/16/19 19:48 I have reviewed the current psychotropics carefully including drug interactions. Risk benefit ratio favors no change other than as noted in my dictated progress note. Diagnosis: Problems: (1) Major depressive disorder, recurrent episode (2) Schizoaffective disorder, bipolar type (3) Impulse control disorder, unspecified (4) Anxiety disorder, unspecified (5) Bipolar disorder, current episode mixed, severe, with psychotic features (6) UTI (urinary tract infection) (7) Mild cognitive impairment YOHANNES LITTLE MD Oct 16, 2019 22:11
[2019-10-17] MEDS: oxyCODONE IR 5 MG TABLET PO PRN ×3 (05:29→17:53)
[2019-10-17 06:07] VITALS: BP 158/88
[2019-10-17 06:43] LABS: BASO % 1 % (0-3); EOS # 0.1 x10^3/uL (0.0-0.7); EOS % 2 % (0-3); HEMATOCRIT 35.9 % (36.0-47.0); HEMOGLOBIN 12.2 g/dL (12.0-15.5); LYMPH % 22 % (24-48); MEAN CORPUSCULAR HEMOGLOBIN 30 pg (25-35); MEAN CORPUSCULAR HGB CONC 34 g/dL (31-37); MEAN CORPUSCULAR VOLUME 89 fL (79-100); MONO # 0.8 x10^3/uL (0.0-1.1); MONO % 18 % (0-9); NEUT # 2.6 x10^3uL (1.8-7.7); NEUT % 58 % (31-73); PLATELET COUNT 345 x10^3/uL (140-400); RED BLOOD COUNT 4.04 x10^6/uL (3.50-5.40); RED CELL DISTRIBUTION WIDTH 14.4 % (11.5-14.5); WHITE BLOOD COUNT 4.5 x10^3/uL (4.0-11.0)
[2019-10-17 06:51] LABS: ALBUMIN 3.1 g/dL (3.4-5.0); ALBUMIN/GLOBULIN RATIO 0.8 (1.0-1.7); ALK PHOS 260 U/L (46-116); ALT (SGPT) 24 U/L (14-59); ANION GAP 7 (6-14); AST (SGOT) 14 U/L (15-37); BLOOD UREA NITROGEN 8 mg/dL (7-20); BUN/CREATININE RATIO 13 (6-20); CARBON DIOXIDE 29 mmol/L (21-32); CHLORIDE 93 mmol/L (98-107); CREATININE 0.6 mg/dL (0.6-1.0); GLUCOSE 164 mg/dL (70-99); POTASSIUM 4.3 mmol/L (3.5-5.1); SODIUM 129 mmol/L (136-145); TOTAL BILIRUBIN 0.5 mg/dL (0.2-1.0); TOTAL PROTEIN 6.8 g/dL (6.4-8.2)
[2019-10-17 06:53] LABS: VAL ACID 61 mcg/mL (50-100)
[2019-10-17] MEDS: ASPIRIN CHEWABLE 81 MG TABLET. PO SCH (08:24)
[2019-10-17] MEDS: busPIRone 5 MG TABLET. PO SCH ×2 (08:24→20:07)
[2019-10-17] MEDS: LACTOBACILLUS RHAMNOSUS GG 1 CAPSULE. PO SCH ×2 (08:24→20:07)
[2019-10-17] MEDS: BENZONATATE 100 MG CAPSULE. PO SCH ×3 (08:25→20:06)
[2019-10-17] MEDS: MULTIVITAMIN with MINERAL TABLET. PO SCH (08:25)
[2019-10-17] MEDS: ENOXAPARIN 40 MG/0.4 ML SYRINGE. SQ SCH (08:25)
[2019-10-17] MEDS: clonazePAM 1 MG TABLET PO SCH ×2 (08:30→20:10)
[2019-10-17] MEDS: PROPRANOLOL 20 MG TABLET. PO SCH ×2 (08:30→20:46)
[2019-10-17] MEDS: DEXTROMETHORPHAN/QUINIDINE 20/10MG CAPSULE. PO SCH ×2 (08:30→20:06)
[2019-10-17] MEDS: OLANZapine 5 MG TABLET PO SCH ×2 (08:31→20:06)
[2019-10-17] MEDS: clonazePAM 0.5 MG TABLET PO SCH (13:04)
[2019-10-17] MEDS: ACETAMINOPHEN 325 MG TABLET PO PRN (13:33)
[2019-10-17 16:16] VITALS: BP 138/84
[2019-10-17] MEDS: traZODone 150 MG TABLET. PO SCH (20:06)
[2019-10-17] MEDS: DIVALPROEX ER 500 MG TAB.ER.24H PO SCH (20:07)
[2019-10-17] MEDS: MELATONIN 3 MG TABLET PO SCH (20:07)
--- NOTE | 2019-10-17 22:12 | PDOC ---
Exam Note: John Note: Please also refer to the separate dictated note~for this date of service dictated separately.~Patient seen individually. Discussed the patient with Nursing staff reviewed the chart.~Reviewed interim history and current functioning. Reviewed vital signs,~Labs/ Radiology~and current medications noted below. Continue current treatment with the changes noted in the dictated addendum note Assessment: Vital Signs/I&O: Vital Signs Date Time Temp Pulse Resp B/P (MAP) Pulse Ox O2 Delivery O2 Flow Rate FiO2 10/17/19 20:46 88 138/84 10/17/19 20:19 20 10/17/19 16:16 97.9 95 Room Air 10/13/19 21:00 2.0 I & O 10/16/19 10/16/19 10/17/19 15:00 23:00 07:00 Intake Total 580 ml 960 ml Balance 580 ml 960 ml Labs: Laboratory Tests Test 10/17/19 06:25 White Blood Count 4.5 x10^3/uL (4.0-11.0) Red Blood Count 4.04 x10^6/uL (3.50-5.40) Hemoglobin 12.2 g/dL (12.0-15.5) Hematocrit 35.9 % (36.0-47.0) L Mean Corpuscular Volume 89 fL (79-100) Mean Corpuscular Hemoglobin 30 pg (25-35) Mean Corpuscular Hemoglobin Concent 34 g/dL (31-37) Red Cell Distribution Width 14.4 % (11.5-14.5) Platelet Count 345 x10^3/uL (140-400) Neutrophils (%) (Auto) 58 % (31-73) Lymphocytes (%) (Auto) 22 % (24-48) L Monocytes (%) (Auto) 18 % (0-9) H Eosinophils (%) (Auto) 2 % (0-3) Basophils (%) (Auto) 1 % (0-3) Neutrophils # (Auto) 2.6 x10^3uL (1.8-7.7) Lymphocytes # (Auto) 1.0 x10^3/uL (1.0-4.8) Monocytes # (Auto) 0.8 x10^3/uL (0.0-1.1) Eosinophils # (Auto) 0.1 x10^3/uL (0.0-0.7) Basophils # (Auto) 0.0 x10^3/uL (0.0-0.2) Sodium Level 129 mmol/L (136-145) L Potassium Level 4.3 mmol/L (3.5-5.1) Chloride Level 93 mmol/L (98-107) L Carbon Dioxide Level 29 mmol/L (21-32) Anion Gap 7 (6-14) Blood Urea Nitrogen 8 mg/dL (7-20) Creatinine 0.6 mg/dL (0.6-1.0) Estimated GFR (Cockcroft-Gault) 101.0 BUN/Creatinine Ratio 13 (6-20) Glucose Level 164 mg/dL (70-99) H Calcium Level 9.0 mg/dL (8.5-10.1) Total Bilirubin 0.5 mg/dL (0.2-1.0) Aspartate Amino Transferase (AST) 14 U/L (15-37) L Alanine Aminotransferase (ALT) 24 U/L (14-59) Alkaline Phosphatase 260 U/L (46-116) H Total Protein 6.8 g/dL (6.4-8.2) Albumin 3.1 g/dL (3.4-5.0) L Albumin/Globulin Ratio 0.8 (1.0-1.7) L Valproic Acid Level 61 mcg/mL (50-100) Valproic Acid Last Dose Date 10/16/2019 Valproic Acid Last Dose Time 2100 Current Medications: Meds: Current Medications Medications (Trade) Dose Ordered Sig/Yuki Route PRN Reason Start Time Stop Time Status Last Admin Dose Admin Clonazepam (KlonoPIN) 0.5 mg 1400 PO 10/17/19 14:00 10/17/19 13:04 I have reviewed the current psychotropics carefully including drug interactions. Risk benefit ratio favors no change other than as noted in my dictated progress note. Diagnosis: Problems: (1) Major depressive disorder, recurrent episode (2) Schizoaffective disorder, bipolar type (3) Impulse control disorder, unspecified (4) Anxiety disorder, unspecified (5) Bipolar disorder, current episode mixed, severe, with psychotic features (6) Mild cognitive impairment YOHANNES LITTLE MD Oct 17, 2019 22:11
[2019-10-18] MEDS: oxyCODONE IR 5 MG TABLET PO PRN ×5 (01:32→20:14)
[2019-10-18 03:52] LABS: BACTERIA,URINE 0 /HPF (0-FEW); BILIRUBIN,URINE NEG (NEG); CLARITY,URINE CLEAR; COLOR,URINE YELLOW; GLUCOSE,URINE NEG (NEG); NITRITE,URINE NEG (NEG); RBC,URINE 0 /HPF (0-2); SQUAMOUS EPITHELIAL CELL,UR OCC /LPF; UROBILINOGEN,URINE 0.2 mg/dL (0.2 mg/dL); WBC,URINE OCC /HPF (0-4)
[2019-10-18 05:06] VITALS: BP 106/71
--- NOTE | 2019-10-18 07:38 | PDOC ---
Exam Note: John Note: This note is a late entry for 10/16/2019 covers elements not covered in my initial note. Subjective: The patient was seen individually in the morning of 10/16/2019 with treatment team meeting with ROSLYN, Estefany (social service staff), [facility] staff, and DHARMESH Roberts. The patient was also seen in the evening of 10/16/2019. Per Sheri MCGOWAN, she slept 6-1/2 hours previous night. The patient continues to have a labile mood and mood has been somewhat happy during the day. She does redirect, complains of leg hurting. Review of Systems: She ambulates with standby assist for transfers and ambulation. No CV, , pulmonary, eye, ENT system symptoms on review. Mental Status Exam: Oriented to herself and situation. Speech coherent, rapid at times. Abstraction is fair. Computation impaired. Language function intact. Attention span short. Mood and affect remains anxious, labile. No suicidal or homicidal ideation. Laboratory Data: Reviewed. Impression: Bipolar disorder mixed with psychotic features. Mild cognitive impairment. Anxiety disorder unspecified. Impulse control disorder unspecified. Plan: Sodium is 131 subtherapeutic. Pharmacy consult indicated. Trileptal could contribute to it. We will consult Dr. Myers, neurology given her history of seizures and if there is no contraindication we will stop the Trileptal. Depakote has been increased to 1000 mg h.s. Lab levels are awaited. We will adjust to reach therapeutic level. The patient is also on Klonopin 1 mg t.i.d. We will reduce the second dosage down to 0.5 mg a day as a gradual dose reduction. Continue rest unchanged. Assessment: Vital Signs/I&O: Vital Signs Date Time Temp Pulse Resp B/P (MAP) Pulse Ox O2 Delivery O2 Flow Rate FiO2 10/18/19 07:23 18 96 10/18/19 06:21 Room Air 10/18/19 05:06 98.2 85 106/71 (83) 10/13/19 21:00 2.0 I & O 10/17/19 10/17/19 10/18/19 14:59 22:59 06:59 Intake Total 480 ml 720 ml Balance 480 ml 720 ml Labs: Laboratory Tests Test 10/18/19 03:00 Urine Collection Type Unknown Urine Color Yellow Urine Clarity Clear Urine pH 7.0 Urine Specific [place] 1.015 Urine Protein Neg (NEG-TRACE) Urine Glucose (UA) Neg mg/dL (NEG) Urine Ketones (Stick) Neg mg/dL (NEG) Urine Blood Neg (NEG) Urine Nitrite Neg (NEG) Urine Bilirubin Neg (NEG) Urine Urobilinogen Dipstick 0.2 mg/dL (0.2 mg/dL) Urine Leukocyte Esterase Neg (NEG) Urine RBC 0 /HPF (0-2) Urine WBC Occ /HPF (0-4) Urine Squamous Epithelial Cells Occ /LPF Urine Bacteria 0 /HPF (0-FEW) Current Medications: Meds: Current Medications Medications (Trade) Dose Ordered Sig/Yuki Route PRN Reason Start Time Stop Time Status Last Admin Dose Admin Clonazepam (KlonoPIN) 0.5 mg 1400 PO 10/17/19 14:00 10/17/19 13:04 I have reviewed the current psychotropics carefully including drug interactions. Risk benefit ratio favors no change other than as noted in my dictated progress note. Diagnosis: Problems: (1) Major depressive disorder, recurrent episode (2) Impulse control disorder, unspecified (3) Anxiety disorder, unspecified (4) Bipolar disorder, current episode mixed, severe, with psychotic features (5) Mild cognitive impairment YOHANNES LITTLE MD Oct 18, 2019 07:38
[2019-10-18] MEDS: BENZONATATE 100 MG CAPSULE. PO SCH ×3 (08:05→20:09)
[2019-10-18] MEDS: PROPRANOLOL 20 MG TABLET. PO SCH ×2 (08:06→20:10)
[2019-10-18] MEDS: MULTIVITAMIN with MINERAL TABLET. PO SCH (08:06)
[2019-10-18] MEDS: LACTOBACILLUS RHAMNOSUS GG 1 CAPSULE. PO SCH ×2 (08:06→20:09)
[2019-10-18] MEDS: clonazePAM 1 MG TABLET PO SCH ×2 (08:06→20:08)
[2019-10-18] MEDS: ASPIRIN CHEWABLE 81 MG TABLET. PO SCH (08:06)
[2019-10-18] MEDS: OLANZapine 5 MG TABLET PO SCH ×2 (08:06→20:07)
[2019-10-18] MEDS: DEXTROMETHORPHAN/QUINIDINE 20/10MG CAPSULE. PO SCH ×2 (08:07→20:10)
[2019-10-18] MEDS: ENOXAPARIN 40 MG/0.4 ML SYRINGE. SQ SCH (08:07)
[2019-10-18] MEDS: busPIRone 5 MG TABLET. PO SCH ×2 (08:07→20:08)
--- NOTE | 2019-10-18 08:28 | PDOC ---
Exam Note: John Note: This note is a late entry for 10/17/2019 covers elements not covered in my initial note. Subjective: The patient was seen individually in the evening of 10/17/2019. Per Corine MCGOWAN, the patient slept 7 hours previous night. Valproic acid level is therapeutic at 61. We will repeat electrolytes in a couple of days. She did have Neurology consult with Dr. Myers and we will await his recommendation whether Trileptal should be stopped given her ongoing hyponatremia. Review of Systems: No CV, , pulmonary, eye, ENT system symptoms on review. Mental Status Exam: Oriented to herself and situation. Speech coherent, rapid at times. Abstraction is fair. Computation impaired. Language function intact. Attention span short. Mood and affect remains anxious, labile. No suicidal or homicidal ideation. Laboratory Data: Reviewed. Impression: Bipolar disorder mixed with psychotic features. Mild cognitive impairment. Anxiety disorder unspecified. Impulse control disorder unspecified. Plan: Continue Depakote ER 1000 mg h.s. Level therapeutic at 61. Continue K lonopin but attempt to taper it further, melatonin 6 mg h.s. Nuedexta along with Zyprexa, Trileptal, propranolol, trazodone, BuSpar 5 mg b.i.d. Make further adjustments as clinically indicated. Assessment: Vital Signs/I&O: Vital Signs Date Time Temp Pulse Resp B/P (MAP) Pulse Ox O2 Delivery O2 Flow Rate FiO2 10/18/19 08:06 85 106/71 10/18/19 07:23 18 96 10/18/19 06:21 Room Air 10/18/19 05:06 98.2 10/13/19 21:00 2.0 I & O 10/17/19 10/17/19 10/18/19 15:00 23:00 07:00 Intake Total 480 ml 720 ml Balance 480 ml 720 ml Labs: Laboratory Tests Test 10/18/19 03:00 Urine Collection Type Unknown Urine Color Yellow Urine Clarity Clear Urine pH 7.0 Urine Specific [place] 1.015 Urine Protein Neg (NEG-TRACE) Urine Glucose (UA) Neg mg/dL (NEG) Urine Ketones (Stick) Neg mg/dL (NEG) Urine Blood Neg (NEG) Urine Nitrite Neg (NEG) Urine Bilirubin Neg (NEG) Urine Urobilinogen Dipstick 0.2 mg/dL (0.2 mg/dL) Urine Leukocyte Esterase Neg (NEG) Urine RBC 0 /HPF (0-2) Urine WBC Occ /HPF (0-4) Urine Squamous Epithelial Cells Occ /LPF Urine Bacteria 0 /HPF (0-FEW) Current Medications: Meds: Current Medications Medications (Trade) Dose Ordered Sig/Yuki Route PRN Reason Start Time Stop Time Status Last Admin Dose Admin Clonazepam (KlonoPIN) 0.5 mg 1400 PO 10/17/19 14:00 10/17/19 13:04 I have reviewed the current psychotropics carefully including drug interactions. Risk benefit ratio favors no change other than as noted in my dictated progress note. Diagnosis: Problems: (1) Major depressive disorder, recurrent episode (2) Schizoaffective disorder, bipolar type (3) Impulse control disorder, unspecified (4) Anxiety disorder, unspecified (5) Bipolar disorder, current episode mixed, severe, with psychotic features (6) Mild cognitive impairment YOHANNES LITTLE MD Oct 18, 2019 08:28
[2019-10-18] MEDS: METHYL SALICYLATE/MENTHOL TOPICAL OINTMENT 57GM TUBE. TP PRN ×2 (10:40→13:39)
[2019-10-18] MEDS: clonazePAM 0.5 MG TABLET PO SCH (12:17)
[2019-10-18] MEDS: HALOPERIDOL 5 MG TABLET PO PRN (14:49)
[2019-10-18 16:12] VITALS: BP 142/70
[2019-10-18] MEDS: MELATONIN 3 MG TABLET PO SCH (20:08)
[2019-10-18] MEDS: DIVALPROEX ER 500 MG TAB.ER.24H PO SCH (20:08)
[2019-10-18] MEDS: traZODone 150 MG TABLET. PO SCH (20:08)
--- NOTE | 2019-10-18 23:03 | PDOC ---
Exam Note: John Note: Please also refer to the separate dictated note~for this date of service dictated separately.~Patient seen individually. Discussed the patient with Nursing staff reviewed the chart.~Reviewed interim history and current functioning. Reviewed vital signs,~Labs/ Radiology~and current medications noted below. Continue current treatment with the changes noted in the dictated addendum note Assessment: Vital Signs/I&O: Vital Signs Date Time Temp Pulse Resp B/P (MAP) Pulse Ox O2 Delivery O2 Flow Rate FiO2 10/18/19 20:14 20 Room Air 10/18/19 20:10 90 142/70 10/18/19 16:12 98.1 93 10/13/19 21:00 2.0 I & O 10/17/19 10/17/19 10/18/19 15:00 23:00 07:00 Intake Total 480 ml 720 ml Balance 480 ml 720 ml Labs: Laboratory Tests Test 10/18/19 03:00 Urine Collection Type Unknown Urine Color Yellow Urine Clarity Clear Urine pH 7.0 Urine Specific [place] 1.015 Urine Protein Neg (NEG-TRACE) Urine Glucose (UA) Neg mg/dL (NEG) Urine Ketones (Stick) Neg mg/dL (NEG) Urine Blood Neg (NEG) Urine Nitrite Neg (NEG) Urine Bilirubin Neg (NEG) Urine Urobilinogen Dipstick 0.2 mg/dL (0.2 mg/dL) Urine Leukocyte Esterase Neg (NEG) Urine RBC 0 /HPF (0-2) Urine WBC Occ /HPF (0-4) Urine Squamous Epithelial Cells Occ /LPF Urine Bacteria 0 /HPF (0-FEW) Current Medications: I have reviewed the current psychotropics carefully including drug interactions. Risk benefit ratio favors no change other than as noted in my dictated progress note. Diagnosis: Problems: (1) Major depressive disorder, recurrent episode (2) Impulse control disorder, unspecified (3) Anxiety disorder, unspecified (4) Bipolar disorder, current episode mixed, severe, with psychotic features (5) Mild cognitive impairment YOHANNES LITTLE MD Oct 18, 2019 23:03
--- NOTE | 2019-10-19 04:05 | PN ---
DATE: 10/18/2019 SUBJECTIVE: The patient denies any recurrent seizure or any new medical or neurological complaints. OBJECTIVE: GENERAL: Well-developed, well-nourished female, not in acute distress. VITAL SIGNS: Afebrile, blood pressure 138/84, respiratory rate is 17, pulse 88 and regular, temperature 97.9 and oxygen saturation 95% on room air. HEENT: Normocephalic, atraumatic, otherwise unremarkable. NECK: Supple. Negative for carotid bruit, lymphadenopathy or thyromegaly. LUNGS: Clear to A and P. CARDIOVASCULAR: Regular rate and rhythm, normal S1, S2. ABDOMEN: Soft. Bowel sounds positive. EXTREMITIES: Negative for cyanosis, clubbing or edema. NEUROLOGICAL EXAM: Mental Status: The patient is alert and oriented x1, and she is oriented to situation. Speech is fluent. There is no language dysfunction. The patient recalls 1/3 immediately and after 1 and 3 minutes. Judgment and abstract thinking are fair. The patient denies hallucination or delusion. Cranial nerves are intact. Motor examination: No focal muscle bulk was seen. The patient continued to have intermittent generalized tremor of the upper and lower extremities. Sensory examination revealed normal pinprick, light touch, vibratory and position senses. Deep tendon reflexes were asymmetric and active without pathology responses. Gait: The patient uses a walker for ambulation. IMPRESSION: 1. Longstanding history of seizure disorder, etiology uncertain, with current hyponatremia of mild severity. 2. Multiple medical problems include seizure disorders, gastroesophageal reflux disease, aortic artery stenosis, generalized weakness, hypertension and pseudobulbar affect, dementia, generalized anxiety disorder and bipolar disorder with intermittent psychosis. 3. Tremor of the upper and lower extremities, probably due to underlying generalized anxiety disorder. RECOMMENDATIONS: Continue with current psychiatric and medical care and current medications. The patient is neurologically stable. M Mary LUNA MD DR: MARY KAY/cyn JOB#: [id number] / [id number]
[2019-10-19 05:19] VITALS: BP 93/61
[2019-10-19] MEDS: ACETAMINOPHEN 325 MG TABLET PO PRN (05:42)
--- NOTE | 2019-10-19 05:47 | CONS ---
DATE OF CONSULTATION: 10/17/2019 NEURO CONSULT REFERRING PHYSICIAN: Dr. Valerio. REASON FOR CONSULTATION: Adjust current anticonvulsant with hyponatremia. HISTORY OF PRESENT ILLNESS: This is a 64-year-old right-handed female who was [facility] on account of behavior disturbances as kicking staff at the [facility], refusing to sit down, agitation and yelling at people and hitting staff. She has been combative and not cooperative. Neuro consult was requested because the patient has been on multiple anticonvulsant including Depakote and Trileptal. She was found to have hyponatremia with a sodium of 128. According to the patient, she is not aware of having any seizure disorder, but the chart stated that she has been having seizure disorder for a while. Since admission, the patient has not had any recurrent seizure. Currently, she denies headaches, visual disturbances, nausea, vomiting, chest pain, shortness of breath or palpitation, dysarthria or dysphagia. PAST MEDICAL HISTORY: Significant for severe aortic stenosis, hyperglycemia, hyponatremia, seizure disorders, hypertension, pseudobulbar affect, gastroesophageal reflux disease, hiatus hernia, recent fracture of the tibial and fibular bone required open reduction and internal fixation. PAST SURGICAL HISTORY: As mentioned above along with tubal ligation. PAST PSYCHIATRIC HISTORY: Includes dementia, generalized anxiety disorders, bipolar disorder with intermittent psychotic features. FAMILY HISTORY: Noncontributory. SOCIAL HISTORY: The patient is a resident at [facility]. She denies smoking, alcohol drinking, or illicit drug use. CURRENT HOME MEDICATIONS: Clonazepam, oxcarbazepine, vitamin D, melatonin, valproic acid, olanzapine, trazodone, oxycodone, multivitamins, Inderal, Nuedexta for pseudobulbar affect, buspirone, aspirin 81 mg daily, Tylenol, Imodium for diarrhea, haloperidol for severe agitation. ALLERGIES: No known drug allergies. REVIEW OF SYSTEMS: A 10-point review of system was performed as mentioned above in history of present illness. PHYSICAL EXAMINATION: GENERAL: Well-developed, well-nourished female, not in acute distress. She weighs 84.3 kilos. VITAL SIGNS: Blood pressure 158/88, respiratory rate 20, pulse is 86 and regular, temperature 97.9, oxygen saturation is 95% on room air. HEENT: Normocephalic, atraumatic, otherwise unremarkable. NECK: Supple. Negative for carotid bruit, lymphadenopathy or thyromegaly. LUNGS: Clear to A and P. CARDIOVASCULAR: Regular rate and rhythm, normal S1, S2. ABDOMEN: Soft. Bowel sounds positive. EXTREMITIES: Negative for cyanosis, clubbing or edema. NEUROLOGICAL: 1. MENTAL STATUS: The patient is alert and oriented to herself and situation. Speech is fluent. There is no language dysfunction. The patient recalls 1/3 immediately and after 1 and 3 minutes. Judgment and abstracting thinking are fair. The patient denies hallucination or delusion. 2. CRANIAL NERVES: Visual francis are full. The pupils are reactive to light and accommodation. The extraocular movements are intact. There is no nystagmus. There is no facial motor or sensory deficit. Hearing is intact bilaterally. The palate is elevated symmetrically. Sternocleidomastoid muscles are powerful bilaterally. The patient shrugs her shoulders symmetrically, protrudes her tongue in the midline without fasciculation or atrophy. 3. MOTOR: No focal muscle bulk was seen. The tone is normal. The strength is 4/5 throughout. The patient has resting tremor of the upper and lower extremities. 4. SENSORY: Revealed normal pinprick, light touch, vibratory and position senses. 5. Deep tendon reflexes were symmetric and active without pathologic responses. 6. GAIT: The stance is steady; however, the patient uses a walker for ambulation. LABORATORY DATA: From today revealed white blood cells of 4.5 thousand, hemoglobin 12.2, hematocrit 35.9, platelet count 345,000. Chemistry revealed sodium of 129, potassium 4.3, chloride 93, CO2 of 29, BUN 8, creatinine 0.6, glucose 164, calcium 9, alkaline phosphatase is high at 260. Urinalysis is negative for urinary tract infections. Valproic acid is 61. IMPRESSION: 1. History of seizure disorder with current low sodium, ranging from 128-129 which is considered mild; however, the patient has been seizure free for number of years; therefore to avoid further worsening of hyponatremia, we will consider adjusting Trileptal dose. 2. Multiple medical problems include aortic stenosis, hypertension, gastroesophageal reflux disease, pseudobulbar affect, depression, bipolar disorder, anxiety disorder and dementia. RECOMMENDATIONS: 1. We will adjust Trileptal/oxcarbazepine to 300 [address] 2[address]. Valerio will adjust Depakote level to be therapeutic. 3. Continue with current medical and psychiatric care. 4. We will repeat electrolytes in the morning. M Mary LUNA MD DR: MARY KAY/cyn JOB#: [id number] / [id number]
[2019-10-19 06:22] VITALS: BP 134/71
[2019-10-19] MEDS: oxyCODONE IR 5 MG TABLET PO PRN ×3 (06:27→20:13)
[2019-10-19 06:34] LABS: BASO % 1 % (0-3); EOS # 0.1 x10^3/uL (0.0-0.7); EOS % 1 % (0-3); HEMATOCRIT 35.4 % (36.0-47.0); LYMPH % 17 % (24-48); MEAN CORPUSCULAR HEMOGLOBIN 30 pg (25-35); MEAN CORPUSCULAR HGB CONC 34 g/dL (31-37); MEAN CORPUSCULAR VOLUME 90 fL (79-100); MONO % 17 % (0-9); NEUT # 3.6 x10^3uL (1.8-7.7); NEUT % 63 % (31-73); PLATELET COUNT 300 x10^3/uL (140-400); RED BLOOD COUNT 3.93 x10^6/uL (3.50-5.40); RED CELL DISTRIBUTION WIDTH 14.8 % (11.5-14.5); WHITE BLOOD COUNT 5.6 x10^3/uL (4.0-11.0)
[2019-10-19 06:48] LABS: ALBUMIN 3.2 g/dL (3.4-5.0); ALBUMIN/GLOBULIN RATIO 0.8 (1.0-1.7); CALCIUM 9.1 mg/dL (8.5-10.1); CREATININE 0.7 mg/dL (0.6-1.0); GFR 84.5; POTASSIUM 3.9 mmol/L (3.5-5.1); TOTAL BILIRUBIN 0.5 mg/dL (0.2-1.0); TOTAL PROTEIN 7.1 g/dL (6.4-8.2)
[2019-10-19] MEDS: LACTOBACILLUS RHAMNOSUS GG 1 CAPSULE. PO SCH ×2 (08:13→20:11)
[2019-10-19] MEDS: busPIRone 5 MG TABLET. PO SCH (08:13)
[2019-10-19] MEDS: BENZONATATE 100 MG CAPSULE. PO SCH ×3 (08:14→20:13)
[2019-10-19] MEDS: MULTIVITAMIN with MINERAL TABLET. PO SCH (08:14)
[2019-10-19] MEDS: ASPIRIN CHEWABLE 81 MG TABLET. PO SCH (08:14)
[2019-10-19] MEDS: clonazePAM 1 MG TABLET PO SCH ×2 (08:14→20:13)
[2019-10-19] MEDS: OLANZapine 5 MG TABLET PO SCH ×2 (08:14→20:12)
[2019-10-19] MEDS: PROPRANOLOL 20 MG TABLET. PO SCH ×2 (08:15→20:14)
[2019-10-19] MEDS: DEXTROMETHORPHAN/QUINIDINE 20/10MG CAPSULE. PO SCH ×2 (08:15→20:14)
[2019-10-19] MEDS: ENOXAPARIN 40 MG/0.4 ML SYRINGE. SQ SCH (08:16)
[2019-10-19] MEDS: clonazePAM 0.5 MG TABLET PO SCH (13:05)
[2019-10-19 15:38] VITALS: BP 159/66
[2019-10-19] MEDS: busPIRone 10 MG TABLET. PO SCH (20:11)
[2019-10-19] MEDS: MELATONIN 3 MG TABLET PO SCH (20:11)
[2019-10-19] MEDS: traZODone 150 MG TABLET. PO SCH (20:12)
[2019-10-19] MEDS: CEPHALEXIN 250 MG CAPSULE PO SCH (20:13)
[2019-10-19] MEDS: DIVALPROEX ER 500 MG TAB.ER.24H PO SCH (20:13)
--- NOTE | 2019-10-19 22:14 | PDOC ---
Exam Note: John Note: Please also refer to the separate dictated note~for this date of service dictated separately.~Patient seen individually. Discussed the patient with Nursing staff reviewed the chart.~Reviewed interim history and current functioning. Reviewed vital signs,~Labs/ Radiology~and current medications noted below. Continue current treatment with the changes noted in the dictated addendum note Assessment: Vital Signs/I&O: Vital Signs Date Time Temp Pulse Resp B/P (MAP) Pulse Ox O2 Delivery O2 Flow Rate FiO2 10/19/19 20:14 88 159/66 10/19/19 20:13 94 10/19/19 15:38 98.0 18 10/19/19 06:27 Room Air 10/13/19 21:00 2.0 I & O 10/18/19 10/18/19 10/19/19 15:00 23:00 07:00 Intake Total 720 ml 240 ml 240 ml Balance 720 ml 240 ml 240 ml Labs: Laboratory Tests Test 10/19/19 06:17 White Blood Count 5.6 x10^3/uL (4.0-11.0) Red Blood Count 3.93 x10^6/uL (3.50-5.40) Hemoglobin 12.0 g/dL (12.0-15.5) Hematocrit 35.4 % (36.0-47.0) L Mean Corpuscular Volume 90 fL (79-100) Mean Corpuscular Hemoglobin 30 pg (25-35) Mean Corpuscular Hemoglobin Concent 34 g/dL (31-37) Red Cell Distribution Width 14.8 % (11.5-14.5) H Platelet Count 300 x10^3/uL (140-400) Neutrophils (%) (Auto) 63 % (31-73) Lymphocytes (%) (Auto) 17 % (24-48) L Monocytes (%) (Auto) 17 % (0-9) H Eosinophils (%) (Auto) 1 % (0-3) Basophils (%) (Auto) 1 % (0-3) Neutrophils # (Auto) 3.6 x10^3uL (1.8-7.7) Lymphocytes # (Auto) 1.0 x10^3/uL (1.0-4.8) Monocytes # (Auto) 1.0 x10^3/uL (0.0-1.1) Eosinophils # (Auto) 0.1 x10^3/uL (0.0-0.7) Basophils # (Auto) 0.0 x10^3/uL (0.0-0.2) Sodium Level 135 mmol/L (136-145) L Potassium Level 3.9 mmol/L (3.5-5.1) Chloride Level 98 mmol/L (98-107) Carbon Dioxide Level 31 mmol/L (21-32) Anion Gap 6 (6-14) Blood Urea Nitrogen 13 mg/dL (7-20) Creatinine 0.7 mg/dL (0.6-1.0) Estimated GFR (Cockcroft-Gault) 84.5 BUN/Creatinine Ratio 19 (6-20) Glucose Level 185 mg/dL (70-99) H Calcium Level 9.1 mg/dL (8.5-10.1) Total Bilirubin 0.5 mg/dL (0.2-1.0) Aspartate Amino Transferase (AST) 15 U/L (15-37) Alanine Aminotransferase (ALT) 25 U/L (14-59) Alkaline Phosphatase 271 U/L (46-116) H Total Protein 7.1 g/dL (6.4-8.2) Albumin 3.2 g/dL (3.4-5.0) L Albumin/Globulin Ratio 0.8 (1.0-1.7) L Current Medications: Meds: Current Medications Medications (Trade) Dose Ordered Sig/Yuki Route PRN Reason Start Time Stop Time Status Last Admin Dose Admin Buspirone HCl (Buspar) 10 mg BID PO 10/19/19 21:00 10/19/19 20:11 Cephalexin HCl (Keflex) 500 mg TID PO 10/19/19 21:00 10/24/19 21:00 10/19/19 20:13 I have reviewed the current psychotropics carefully including drug interactions. Risk benefit ratio favors no change other than as noted in my dictated progress note. Diagnosis: Problems: (1) Major depressive disorder, recurrent episode (2) Schizoaffective disorder, bipolar type (3) Impulse control disorder, unspecified (4) Anxiety disorder, unspecified (5) Bipolar disorder, current episode mixed, severe, with psychotic features (6) Mild cognitive impairment YOHANNES LITTLE MD Oct 19, 2019 22:14
[2019-10-20 06:22] VITALS: BP 129/83
[2019-10-20] MEDS: oxyCODONE IR 5 MG TABLET PO PRN ×4 (06:35→21:30)
--- NOTE | 2019-10-20 07:24 | PDOC ---
Exam Note: John Note: This note is a late entry for 10/18/2019 covers elements not covered in my initial note. Subjective: The patient was seen individually in the evening of 10/18/2019. Per Cindy MCGOWAN, the patient slept 5-1/4 hours previous night. She has been teary, needy. Sodium 129. We will repeat electrolytes and will do pharmacy consult to see what they feel might be the incrementing medication. Await neurological recommendation from Dr. Myers. Review of Systems: No CV, , pulmonary, eye, ENT system symptoms on review. She has vague somatic symptoms. Ambulates with walker. Mental Status Exam: Oriented to herself and situation. Speech coherent. She is pleasant, verbal. Abstraction is fair. Computation impaired. Language function intact. Mood and affect lability is improved. Laboratory Data: Reviewed. Impression: Bipolar disorder mixed with psychotic features. Mild cognitive impairment. Anxiety disorder unspecified. Impulse control disorder unspecified. Mild hyponatremia. Plan: Check electrolytes again. Continue current psychotropics including Klonopin, Depakote ER, valproic acid level is 61. Maintain Nuedexta, melatonin, Zyprexa, Trileptal, trazodone. Adjust further as clinically indicated. Assessment: Vital Signs/I&O: Vital Signs Date Time Temp Pulse Resp B/P (MAP) Pulse Ox O2 Delivery O2 Flow Rate FiO2 10/20/19 06:35 92 10/20/19 06:22 97.4 74 16 129/83 (98) 10/19/19 06:27 Room Air I & O 10/19/19 10/19/19 10/20/19 15:00 23:00 07:00 Intake Total 720 ml 480 ml Balance 720 ml 480 ml Current Medications: Meds: Current Medications Medications (Trade) Dose Ordered Sig/Yuki Route PRN Reason Start Time Stop Time Status Last Admin Dose Admin Buspirone HCl (Buspar) 10 mg BID PO 10/19/19 21:00 10/19/19 20:11 Cephalexin HCl (Keflex) 500 mg TID PO 10/19/19 21:00 10/24/19 21:00 10/19/19 20:13 I have reviewed the current psychotropics carefully including drug interactions. Risk benefit ratio favors no change other than as noted in my dictated progress note. Diagnosis: Problems: (1) Hyponatremia (2) Major depressive disorder, recurrent episode (3) Impulse control disorder, unspecified (4) Anxiety disorder, unspecified (5) Bipolar disorder, current episode mixed, severe, with psychotic features (6) Mild cognitive impairment YOHANNES LITTLE MD Oct 20, 2019 07:24
--- NOTE | 2019-10-20 07:43 | PDOC ---
Exam Note: John Note: This note is a late entry for 10/19/2019 covers elements not covered in my initial note. Subjective: The patient was seen individually in the morning of 10/19/2019 with treatment team meeting with Estefany (social service staff), [facility] staff, Corine MCGOWAN. Average sleep 6 hours previous night. Repeat UA on 10/17 was negative. She is anxious, tearful, needing a lot of reassurance. She complains of knee pain. Discussed with Sheri MCGOWAN in the evening. She has been started on Keflex for her cellulitis. Review of Systems: Impaired ambulation. Positive for knee pain. No CV, , pulmonary, eye system symptoms on review. Mental Status Exam: Oriented to herself and situation. Speech coherent. Abstraction is fair. Computation impaired. Language function intact. Attention span short. Mood and affect remains anxious, labile, tearful. No suicidal or homicidal ideation. Laboratory Data: Reviewed. Impression: Bipolar disorder mixed with psychotic features. Mild cognitive impairment. Anxiety disorder unspecified. Impulse control disorder unspecified. Plan: No change from initial note. Assessment: Vital Signs/I&O: Vital Signs Date Time Temp Pulse Resp B/P (MAP) Pulse Ox O2 Delivery O2 Flow Rate FiO2 10/20/19 07:39 92 10/20/19 06:22 97.4 74 16 129/83 (98) 10/19/19 06:27 Room Air I & O 10/19/19 10/19/19 10/20/19 15:00 23:00 07:00 Intake Total 720 ml 480 ml Balance 720 ml 480 ml Current Medications: Meds: Current Medications Medications (Trade) Dose Ordered Sig/Yuki Route PRN Reason Start Time Stop Time Status Last Admin Dose Admin Buspirone HCl (Buspar) 10 mg BID PO 10/19/19 21:00 10/19/19 20:11 Cephalexin HCl (Keflex) 500 mg TID PO 10/19/19 21:00 10/24/19 21:00 10/19/19 20:13 I have reviewed the current psychotropics carefully including drug interactions. Risk benefit ratio favors no change other than as noted in my dictated progress note. Diagnosis: Problems: (1) Major depressive disorder, recurrent episode (2) Schizoaffective disorder, bipolar type (3) Impulse control disorder, unspecified (4) Anxiety disorder, unspecified (5) Bipolar disorder, current episode mixed, severe, with psychotic features (6) Mild cognitive impairment (7) Hyponatremia YOHANNES LITTLE MD Oct 20, 2019 07:43
[2019-10-20] MEDS: DEXTROMETHORPHAN/QUINIDINE 20/10MG CAPSULE. PO SCH ×2 (08:15→19:52)
[2019-10-20] MEDS: ASPIRIN CHEWABLE 81 MG TABLET. PO SCH (08:16)
[2019-10-20] MEDS: busPIRone 10 MG TABLET. PO SCH ×2 (08:16→19:49)
[2019-10-20] MEDS: LACTOBACILLUS RHAMNOSUS GG 1 CAPSULE. PO SCH ×2 (08:16→19:50)
[2019-10-20] MEDS: MULTIVITAMIN with MINERAL TABLET. PO SCH (08:16)
[2019-10-20] MEDS: BENZONATATE 100 MG CAPSULE. PO SCH ×3 (08:16→19:51)
[2019-10-20] MEDS: OLANZapine 5 MG TABLET PO SCH ×2 (08:16→19:52)
[2019-10-20] MEDS: PROPRANOLOL 20 MG TABLET. PO SCH ×2 (08:16→19:52)
[2019-10-20] MEDS: clonazePAM 1 MG TABLET PO SCH ×2 (08:16→19:51)
[2019-10-20] MEDS: ENOXAPARIN 40 MG/0.4 ML SYRINGE. SQ SCH (08:17)
[2019-10-20] MEDS: CEPHALEXIN 250 MG CAPSULE PO SCH ×3 (08:17→19:50)
[2019-10-20] MEDS ORDERED: FUROSEMIDE 80 MG TABLET PO SCH (11:15)
[2019-10-20] MEDS: clonazePAM 0.5 MG TABLET PO SCH (13:14)
[2019-10-20 15:41] VITALS: BP 149/98
[2019-10-20] MEDS: DIVALPROEX ER 500 MG TAB.ER.24H PO SCH (19:50)
[2019-10-20] MEDS: MELATONIN 3 MG TABLET PO SCH (19:51)
[2019-10-20] MEDS: traZODone 150 MG TABLET. PO SCH (19:52)
--- NOTE | 2019-10-20 22:03 | PDOC ---
Exam Note: John Note: Please also refer to the separate dictated note~for this date of service dictated separately.~Patient seen individually. Discussed the patient with Nursing staff reviewed the chart.~Reviewed interim history and current functioning. Reviewed vital signs,~Labs/ Radiology~and current medications noted below. Continue current treatment with the changes noted in the dictated addendum note Assessment: Vital Signs/I&O: Vital Signs Date Time Temp Pulse Resp B/P (MAP) Pulse Ox O2 Delivery O2 Flow Rate FiO2 10/20/19 21:30 93 10/20/19 19:52 93 149/98 10/20/19 15:41 97.8 18 Room Air I & O 10/19/19 10/19/19 10/20/19 15:00 23:00 07:00 Intake Total 720 ml 480 ml Balance 720 ml 480 ml Current Medications: Meds: Current Medications Medications (Trade) Dose Ordered Sig/Yuki Route PRN Reason Start Time Stop Time Status Last Admin Dose Admin Furosemide (Lasix) 80 mg 1X PO 10/20/19 11:15 10/20/19 13:15 I have reviewed the current psychotropics carefully including drug interactions. Risk benefit ratio favors no change other than as noted in my dictated progress note. Diagnosis: Problems: (1) Major depressive disorder, recurrent episode (2) Schizoaffective disorder, bipolar type (3) Impulse control disorder, unspecified (4) Anxiety disorder, unspecified (5) Bipolar disorder, current episode mixed, severe, with psychotic features (6) Mild cognitive impairment YOHANNES LITTLE MD Oct 20, 2019 22:03
[2019-10-21 03:52] VITALS: BP 147/83
[2019-10-21] MEDS: busPIRone 10 MG TABLET. PO SCH ×2 (08:22→19:57)
[2019-10-21] MEDS: ASPIRIN CHEWABLE 81 MG TABLET. PO SCH (08:22)
[2019-10-21] MEDS: LACTOBACILLUS RHAMNOSUS GG 1 CAPSULE. PO SCH ×2 (08:22→19:57)
[2019-10-21] MEDS: DEXTROMETHORPHAN/QUINIDINE 20/10MG CAPSULE. PO SCH ×2 (08:23→19:56)
[2019-10-21] MEDS: PROPRANOLOL 20 MG TABLET. PO SCH ×2 (08:23→19:59)
[2019-10-21] MEDS: CEPHALEXIN 250 MG CAPSULE PO SCH ×3 (08:23→19:58)
[2019-10-21] MEDS: clonazePAM 1 MG TABLET PO SCH ×2 (08:23→19:58)
[2019-10-21] MEDS: OLANZapine 5 MG TABLET PO SCH (08:24)
[2019-10-21] MEDS: MULTIVITAMIN with MINERAL TABLET. PO SCH (08:24)
[2019-10-21] MEDS: BENZONATATE 100 MG CAPSULE. PO SCH ×3 (08:24→19:57)
[2019-10-21] MEDS: ENOXAPARIN 40 MG/0.4 ML SYRINGE. SQ SCH (08:25)
[2019-10-21] MEDS: ACETAMINOPHEN 325 MG TABLET PO PRN ×2 (09:05→17:11)
[2019-10-21] MEDS: oxyCODONE IR 5 MG TABLET PO PRN ×4 (09:05→21:15)
--- NOTE | 2019-10-21 10:11 | PN ---
DATE: 10/19/2019 SUBJECTIVE: The patient denies any new medical or neurological complaints. She has not had any recurrent seizure. OBJECTIVE: GENERAL: Well-developed, well-nourished female, not in acute distress. VITAL SIGNS: Blood pressure is 159/66, respiratory rate 18, pulse is 88 and irregular, oxygen saturation is 94% on room air. HEENT: Normocephalic, atraumatic, otherwise unremarkable. NECK: Supple. Negative for carotid bruit, lymphadenopathy or thyromegaly. LUNGS: Clear to A and P. CARDIOVASCULAR: Regular rate and rhythm, normal S1, S2. There is no S3, S4 or murmur. ABDOMEN: Soft. Bowel sounds positive. EXTREMITIES: Negative for cyanosis, clubbing or edema. NEUROLOGICAL EXAM: Mental Status: The patient is alert and oriented to herself and situation. Speech is fluent. There is no language dysfunction. Memory, judgment and abstracting thinking are fair. The patient denies hallucination or delusion. Cranial nerves are intact. No focal motor or sensory deficit. Deep tendon reflexes were symmetric and active without pathologic responses. Gait: The patient uses a walker for ambulation. LABORATORY DATA: CBC revealed white blood cells of 5.6 thousand, hemoglobin 12, hematocrit 35.4 and platelet count 300,000. Chemistry revealed sodium of 135, potassium 3.9, chloride 98, CO2 of 31, BUN 13, creatinine 0.7, glucose 185 and calcium 9.1. IMPRESSION: 1. Longstanding history of seizure, etiology uncertain with current hyponatremia -- improved after cutting back on her Trileptal and oxcarbazepine. 2. Multiple medical problems include seizure disorder, gastroesophageal reflux disease, aortic artery stenosis and hypertension, pseudobulbar affect, dementia and generalized anxiety disorders with bipolar disorder. RECOMMENDATIONS: Continue with current medical and psychiatric care. Continue with Trileptal at 300 mg b.i.d. M Mary LUNA MD DR: MARY KAY/cyn JOB#: [id number] / [id number]
--- NOTE | 2019-10-21 10:18 | PN ---
DATE: 10/21/2019 SUBJECTIVE: The patient denies any new medical or neurological complaints. She has not had any recurrent seizure. OBJECTIVE: GENERAL: Well-developed, well-nourished female, not in acute distress. VITAL SIGNS: Blood pressure is 147/86, respiratory rate 20, pulse is 86 and regular, temperature 98.2, oxygen saturation is 94% on room air. HEENT: Normocephalic, atraumatic, otherwise unremarkable. NECK: Supple. Negative for carotid bruit, lymphadenopathy or thyromegaly. LUNGS: Clear to A and P. CARDIOVASCULAR: Regular rate and rhythm, normal S1, S2. ABDOMEN: Soft. Bowel sounds positive. EXTREMITIES: Negative for cyanosis, clubbing or edema. NEUROLOGICAL EXAM: Mental Status: The patient is alert and oriented x 2. Speech is fluent. There is no language dysfunction. Memory, judgment, and abstracting thinking are fair. The patient denies hallucination or delusion. Cranial nerves are intact. No focal motor or sensory deficit. Deep tendon reflexes were symmetric and active without pathologic responses. Gait: The patient uses a walker for ambulation. IMPRESSION: 1. Longstanding history of seizure disorder, but no recurrent seizures since admission. 2. Hyponatremia -- corrected by reducing the dose of oxcarbazepine. 3. Multiple medical problems include GERD, aortic stenosis, hypertension, hyperglycemia, generalized weakness. 3. Multiple psychiatric problems include dementia, generalized anxiety disorders, bipolar disorders. RECOMMENDATIONS: Continue with current medical and psychiatric care. M Mary LUNA MD DR: MARY KAY/cyn JOB#: [id number] / [id number]
[2019-10-21] MEDS: clonazePAM 0.5 MG TABLET PO SCH (13:12)
[2019-10-21 16:19] VITALS: BP 148/92
[2019-10-21] MEDS: HALOPERIDOL 5 MG TABLET PO PRN (17:11)
[2019-10-21] MEDS: MELATONIN 3 MG TABLET PO SCH (19:56)
[2019-10-21] MEDS: DIVALPROEX ER 500 MG TAB.ER.24H PO SCH (19:58)
[2019-10-21] MEDS: traZODone 150 MG TABLET. PO SCH (19:59)
--- NOTE | 2019-10-21 22:22 | PDOC ---
Exam Note: John Note: Please also refer to the separate dictated note~for this date of service dictated separately.~Patient seen individually. Discussed the patient with Nursing staff reviewed the chart.~Reviewed interim history and current functioning. Reviewed vital signs,~Labs/ Radiology~and current medications noted below. Continue current treatment with the changes noted in the dictated addendum note Assessment: Vital Signs/I&O: Vital Signs Date Time Temp Pulse Resp B/P (MAP) Pulse Ox O2 Delivery O2 Flow Rate FiO2 10/21/19 21:15 94 10/21/19 19:59 86 148/92 10/21/19 18:19 20 10/21/19 16:19 97.5 10/20/19 15:41 Room Air I & O 10/20/19 10/20/19 10/21/19 15:00 23:00 07:00 Intake Total 960 ml 480 ml Balance 960 ml 480 ml Current Medications: I have reviewed the current psychotropics carefully including drug interactions. Risk benefit ratio favors no change other than as noted in my dictated progress note. Diagnosis: Problems: (1) Major depressive disorder, recurrent episode (2) Schizoaffective disorder, bipolar type (3) Impulse control disorder, unspecified (4) Anxiety disorder, unspecified (5) Bipolar disorder, current episode mixed, severe, with psychotic features (6) Mild cognitive impairment YOHANNES LITTLE MD Oct 21, 2019 22:22
[2019-10-22 05:50] VITALS: BP 129/76
--- NOTE | 2019-10-22 07:01 | PDOC ---
Exam Note: John Note: This note is a late entry for 10/20/2019 covers elements not covered in my initial note. Subjective: The patient was seen individually in the evening of 10/20/2019. Per Sheri MCGOWAN, she slept 7 hours previous night. She has been more tearful, anxious, obsessive about wanting to speak to [facility], social service staff. Review of Systems: Shortness of breath on O2 supplements and complains of pain in her leg. No CV, , eye system symptoms on review. Ambulation impaired with walker. Mental Status Exam: Oriented reasonably. Speech coherent. Abstraction is fa ir. Computation impaired. Language function intact. Attention span short. Mood and affect remains anxious, tearful at times. No suicidal or homicidal ideation. Laboratory Data: Reviewed. Sodium 135. Impression: Bipolar disorder mixed with psychotic features. Mild cognitive impairment. Anxiety disorder unspecified. Impulse control disorder unspecified. Plan: No change from initial note. We have reduced the Klonopin somewhat and may reduce it further in due course. Assessment: Vital Signs/I&O: Vital Signs Date Time Temp Pulse Resp B/P (MAP) Pulse Ox O2 Delivery O2 Flow Rate FiO2 10/22/19 05:50 97.7 83 16 129/76 (93) 95 10/20/19 15:41 Room Air I & O 0 10/21/19 10/21/19 10/22/19 15:00 23:00 07:00 Intake Total 600 ml 240 ml Balance 600 ml 240 ml Current Medications: I have reviewed the current psychotropics carefully including drug interactions. Risk benefit ratio favors no change other than as noted in my dictated progress note. Diagnosis: Problems: (1) Major depressive disorder, recurrent episode (2) Schizoaffective disorder, bipolar type (3) Impulse control disorder, unspecified (4) Anxiety disorder, unspecified (5) Bipolar disorder, current episode mixed, severe, with psychotic features (6) Mild cognitive impairment YOHANNES LITTLE MD Oct 22, 2019 07:01
--- NOTE | 2019-10-22 07:27 | PDOC ---
Exam Note: John Note: This note is a late entry for 10/21/2019 covers elements not covered in my initial note. Subjective: The patient was seen individually in the evening of 10/21/2019. Per Corine MCGOWAN she slept 7 hours previous night. She has been wanting pain medications. Review of Systems: Impaired ambulation with walker. Positive for knee pain and also shortness of breath on O2 supplements. No CV, , eye system symptoms on review. Mental Status Exam: Oriented to herself and situation. Speech coherent. Abstraction is fair. Computation impaired. Language function intact. Attention span short. Mood and affect remains anxious, labile. No suicidal or homicidal ideation. Laboratory Data: Reviewed. Sodium 135. Alkaline phosphatase somewhat elevated 271. We will repeat in 2 days. Impression: Bipolar disorder mixed with psychotic features. Mild cognitive impairment. Anxiety disorder unspecified. Impulse control disorder unspecified. Plan: No change from initial note. The patient continues to have mood lability with some depressive tearful episodes, emotionality. We will change the Zyprexa 5 mg a day to Seroquel 25 mg 9 a.m. and 1 p.m. Continue Klonopin which was reduced. Maintain Depakote, melatonin, Nuedexta, Trileptal, Inderal, trazodone, BuSpar 10 mg b.i.d. and Haldol p.r.n. Adjust further as clinically indicated. Assessment: Vital Signs/I&O: Vital Signs Date Time Temp Pulse Resp B/P (MAP) Pulse Ox O2 Delivery O2 Flow Rate FiO2 10/22/19 05:50 97.7 83 16 129/76 (93) 95 10/20/19 15:41 Room Air I & O 10/21/19 10/21/19 10/22/19 15:00 23:00 07:00 Intake Total 600 ml 240 ml Balance 600 ml 240 ml Current Medications: I have reviewed the current psychotropics carefully including drug interactions. Risk benefit ratio favors no change other than as noted in my dictated progress note. Diagnosis: Problems: (1) Shortness of breath (2) Major depressive disorder, recurrent episode (3) Schizoaffective disorder, bipolar type (4) Impulse control disorder, unspecified (5) Anxiety disorder, unspecified (6) Bipolar disorder, current episode mixed, severe, with psychotic features (7) Mild cognitive impairment YOHANNES LITTLE MD 12, 2020 07:27
[2019-10-22] MEDS: busPIRone 10 MG TABLET. PO SCH ×2 (08:12→20:14)
[2019-10-22] MEDS: ASPIRIN CHEWABLE 81 MG TABLET. PO SCH (08:12)
[2019-10-22] MEDS: LACTOBACILLUS RHAMNOSUS GG 1 CAPSULE. PO SCH ×2 (08:13→20:14)
[2019-10-22] MEDS: PROPRANOLOL 20 MG TABLET. PO SCH ×2 (08:13→20:14)
[2019-10-22] MEDS: BENZONATATE 100 MG CAPSULE. PO SCH ×3 (08:13→20:15)
[2019-10-22] MEDS: clonazePAM 1 MG TABLET PO SCH ×2 (08:13→20:14)
[2019-10-22] MEDS: QUEtiapine 25 MG TABLET. PO SCH ×2 (08:13→12:48)
[2019-10-22] MEDS: CEPHALEXIN 250 MG CAPSULE PO SCH ×3 (08:13→20:15)
[2019-10-22] MEDS: DEXTROMETHORPHAN/QUINIDINE 20/10MG CAPSULE. PO SCH ×2 (08:13→20:14)
[2019-10-22] MEDS: oxyCODONE IR 5 MG TABLET PO PRN ×2 (08:14→15:09)
[2019-10-22] MEDS: CHOLECALCIFEROL (VITAMIN D3) 50,000 UNIT CAPSULE PO SCH (08:14)
[2019-10-22] MEDS: MULTIVITAMIN with MINERAL TABLET. PO SCH (08:14)
[2019-10-22] MEDS: ACETAMINOPHEN 325 MG TABLET PO PRN (08:14)
[2019-10-22] MEDS: ENOXAPARIN 40 MG/0.4 ML SYRINGE. SQ SCH (10:55)
[2019-10-22] MEDS: clonazePAM 0.5 MG TABLET PO SCH (12:48)
[2019-10-22 15:47] VITALS: BP 134/85
[2019-10-22] MEDS: DIVALPROEX ER 500 MG TAB.ER.24H PO SCH (20:14)
[2019-10-22] MEDS: traZODone 150 MG TABLET. PO SCH (20:14)
[2019-10-22] MEDS: MELATONIN 3 MG TABLET PO SCH (20:15)
--- NOTE | 2019-10-22 22:04 | PDOC ---
Exam Note: John Note: Please also refer to the separate dictated note~for this date of service dictated separately.~Patient seen individually. Discussed the patient with Nursing staff reviewed the chart.~Reviewed interim history and current functioning. Reviewed vital signs,~Labs/ Radiology~and current medications noted below. Continue current treatment with the changes noted in the dictated addendum note Assessment: Vital Signs/I&O: Vital Signs Date Time Temp Pulse Resp B/P (MAP) Pulse Ox O2 Delivery O2 Flow Rate FiO2 10/22/19 20:14 87 134/85 10/22/19 16:09 20 Room Air 10/22/19 15:47 97.7 97 I & O 10/21/19 10/21/19 10/22/19 15:00 23:00 07:00 Intake Total 600 ml 240 ml Balance 600 ml 240 ml Current Medications: Meds: Current Medications Medications (Trade) Dose Ordered Sig/Yuki Route PRN Reason Start Time Stop Time Status Last Admin Dose Admin Quetiapine Fumarate (SEROquel) 25 mg 0900,1300 PO 10/22/19 09:00 10/22/19 12:48 I have reviewed the current psychotropics carefully including drug interactions. Risk benefit ratio favors no change other than as noted in my dictated progress note. Diagnosis: Problems: (1) Major depressive disorder, recurrent episode (2) Impulse control disorder, unspecified (3) Anxiety disorder, unspecified (4) Bipolar disorder, current episode mixed, severe, with psychotic features (5) Mild cognitive impairment (6) Shortness of breath YOHANNES LITTLE MD Oct 22, 2019 22:04
[2019-10-23 05:43] VITALS: BP 143/81
[2019-10-23 07:39] LABS: BASO % 1 % (0-3); EOS # 0.1 x10^3/uL (0.0-0.7); EOS % 2 % (0-3); HEMOGLOBIN 11.6 g/dL (12.0-15.5); LYMPH # 1.2 x10^3/uL (1.0-4.8); LYMPH % 26 % (24-48); MEAN CORPUSCULAR HEMOGLOBIN 31 pg (25-35); MEAN CORPUSCULAR HGB CONC 34 g/dL (31-37); MEAN CORPUSCULAR VOLUME 91 fL (79-100); MONO # 0.8 x10^3/uL (0.0-1.1); MONO % 17 % (0-9); NEUT # 2.5 x10^3uL (1.8-7.7); NEUT % 55 % (31-73); PLATELET COUNT 218 x10^3/uL (140-400); RED BLOOD COUNT 3.74 x10^6/uL (3.50-5.40); RED CELL DISTRIBUTION WIDTH 14.1 % (11.5-14.5); WHITE BLOOD COUNT 4.6 x10^3/uL (4.0-11.0)
[2019-10-23 08:09] LABS: ALBUMIN/GLOBULIN RATIO 0.9 (1.0-1.7); CALCIUM 8.9 mg/dL (8.5-10.1); CREATININE 0.8 mg/dL (0.6-1.0); GFR 72.4; POTASSIUM 3.9 mmol/L (3.5-5.1); TOTAL BILIRUBIN 0.4 mg/dL (0.2-1.0); TOTAL PROTEIN 6.5 g/dL (6.4-8.2)
[2019-10-23] MEDS: LACTOBACILLUS RHAMNOSUS GG 1 CAPSULE. PO SCH ×2 (08:14→19:40)
[2019-10-23] MEDS: busPIRone 10 MG TABLET. PO SCH ×2 (08:14→19:41)
[2019-10-23] MEDS: ASPIRIN CHEWABLE 81 MG TABLET. PO SCH (08:14)
[2019-10-23] MEDS: PROPRANOLOL 20 MG TABLET. PO SCH ×2 (08:16→19:41)
[2019-10-23] MEDS: DEXTROMETHORPHAN/QUINIDINE 20/10MG CAPSULE. PO SCH ×2 (08:17→19:40)
[2019-10-23] MEDS: BENZONATATE 100 MG CAPSULE. PO SCH ×3 (08:17→19:41)
[2019-10-23] MEDS: CEPHALEXIN 250 MG CAPSULE PO SCH ×3 (08:17→19:40)
[2019-10-23] MEDS: MULTIVITAMIN with MINERAL TABLET. PO SCH (08:17)
[2019-10-23] MEDS: QUEtiapine 25 MG TABLET. PO SCH ×2 (08:17→13:38)
[2019-10-23] MEDS: ACETAMINOPHEN 325 MG TABLET PO PRN ×2 (08:18→13:38)
[2019-10-23] MEDS: ENOXAPARIN 40 MG/0.4 ML SYRINGE. SQ SCH (08:18)
[2019-10-23] MEDS: oxyCODONE IR 5 MG TABLET PO PRN ×3 (08:18→19:42)
[2019-10-23] MEDS: clonazePAM 1 MG TABLET PO SCH ×2 (08:21→19:41)
[2019-10-23] MEDS: clonazePAM 0.5 MG TABLET PO SCH (13:38)
[2019-10-23 16:18] VITALS: BP 135/79
[2019-10-23] MEDS: DIVALPROEX ER 500 MG TAB.ER.24H PO SCH (19:41)
[2019-10-23] MEDS: MELATONIN 3 MG TABLET PO SCH (19:41)
[2019-10-23] MEDS: traZODone 150 MG TABLET. PO SCH (19:41)
--- NOTE | 2019-10-23 22:04 | PDOC ---
Exam Note: John Note: Please also refer to the separate dictated note~for this date of service dictated separately.~Patient seen individually. Discussed the patient with Nursing staff reviewed the chart.~Reviewed interim history and current functioning. Reviewed vital signs,~Labs/ Radiology~and current medications noted below. Continue current treatment with the changes noted in the dictated addendum note Assessment: Vital Signs/I&O: Vital Signs Date Time Temp Pulse Resp B/P (MAP) Pulse Ox O2 Delivery O2 Flow Rate FiO2 10/23/19 20:42 96 10/23/19 19:41 82 135/79 10/23/19 16:18 98.1 20 10/22/19 16:09 Room Air I & O 10/22/19 10/22/19 10/23/19 15:00 23:00 07:00 Intake Total 360 ml 480 ml Balance 360 ml 480 ml Labs: Laboratory Tests Test 10/23/19 07:05 White Blood Count 4.6 x10^3/uL (4.0-11.0) Red Blood Count 3.74 x10^6/uL (3.50-5.40) Hemoglobin 11.6 g/dL (12.0-15.5) L Hematocrit 34.0 % (36.0-47.0) L Mean Corpuscular Volume 91 fL (79-100) Mean Corpuscular Hemoglobin 31 pg (25-35) Mean Corpuscular Hemoglobin Concent 34 g/dL (31-37) Red Cell Distribution Width 14.1 % (11.5-14.5) Platelet Count 218 x10^3/uL (140-400) Neutrophils (%) (Auto) 55 % (31-73) Lymphocytes (%) (Auto) 26 % (24-48) Monocytes (%) (Auto) 17 % (0-9) H Eosinophils (%) (Auto) 2 % (0-3) Basophils (%) (Auto) 1 % (0-3) Neutrophils # (Auto) 2.5 x10^3uL (1.8-7.7) Lymphocytes # (Auto) 1.2 x10^3/uL (1.0-4.8) Monocytes # (Auto) 0.8 x10^3/uL (0.0-1.1) Eosinophils # (Auto) 0.1 x10^3/uL (0.0-0.7) Basophils # (Auto) 0.0 x10^3/uL (0.0-0.2) Sodium Level 138 mmol/L (136-145) Potassium Level 3.9 mmol/L (3.5-5.1) Chloride Level 100 mmol/L (98-107) Carbon Dioxide Level 32 mmol/L (21-32) Anion Gap 6 (6-14) Blood Urea Nitrogen 14 mg/dL (7-20) Creatinine 0.8 mg/dL (0.6-1.0) Estimated GFR (Cockcroft-Gault) 72.4 BUN/Creatinine Ratio 18 (6-20) Glucose Level 119 mg/dL (70-99) H Calcium Level 8.9 mg/dL (8.5-10.1) Total Bilirubin 0.4 mg/dL (0.2-1.0) Aspartate Amino Transferase (AST) 11 U/L (15-37) L Alanine Aminotransferase (ALT) 18 U/L (14-59) Alkaline Phosphatase 269 U/L (46-116) H Total Protein 6.5 g/dL (6.4-8.2) Albumin 3.0 g/dL (3.4-5.0) L Albumin/Globulin Ratio 0.9 (1.0-1.7) L Current Medications: I have reviewed the current psychotropics carefully including drug interactions. Risk benefit ratio favors no change other than as noted in my dictated progress note. Diagnosis: Problems: (1) Major depressive disorder, recurrent episode (2) Impulse control disorder, unspecified (3) Anxiety disorder, unspecified (4) Bipolar disorder, current episode mixed, severe, with psychotic features (5) Mild cognitive impairment (6) Shortness of breath YOHANNES LITTLE MD Oct 23, 2019 22:04
[2019-10-24 05:00] VITALS: BP 115/77
--- NOTE | 2019-10-24 09:02 | PDOC ---
Exam Note: John Note: This note is a late entry for 10/22/2019 covers elements not covered in my initial note. Subjective: The patient was seen individually in the evening of 10/22/2019. Per Christian MCGOWAN she slept 8-1/4 hours previous night. She has been repeatedly wanting to call her sister and staff are limiting this to 2 hours. She has had some less crying but remains depressed, tearful, anxious, repetitive as I met with her at great length in her room. She was able to see that her desire to talk to her sister is more of a selfish desire but what the sister wants is the patient to be happy. She should focus what needs to be done to make her happy. She was smiling, thanking me at the end of the visit. Review of Systems: Impaired ambulation with walker. Shortness of breath on O2 supplements. No CV, , eye system symptoms on review. Mental Status Exam: Oriented to herself and situation. Speech coherent. Abstraction is fair. Computation impaired. Language function intact. Attention span short. Mood and affect remains anxious, depressed. No suicidal or homicidal ideation. Laboratory Data: Reviewed. Impression: Bipolar disorder mixed with psychotic features. Mild cognitive impairment. Anxiety disorder unspecified. Impulse control disorder unspecified. Plan: No change from initial note. Valproic acid level is therapeutic. May need to increase her mood stabilizers if mood lability persists. She is also somewhat obsessive. Assessment: Vital Signs/I&O: Vital Signs Date Time Temp Pulse Resp B/P (MAP) Pulse Ox O2 Delivery O2 Flow Rate FiO2 10/24/19 08:28 97.7 10/23/19 20:42 96 10/23/19 19:41 82 135/79 10/23/19 16:18 20 10/22/19 16:09 Room Air I & O 10/23/19 10/23/19 10/24/19 15:00 23:00 07:00 Intake Total 240 ml 600 ml Balance 240 ml 600 ml Current Medications: I have reviewed the current psychotropics carefully including drug interactions. Risk benefit ratio favors no change other than as noted in my dictated progress note. Diagnosis: Problems: (1) Major depressive disorder, recurrent episode (2) Impulse control disorder, unspecified (3) Anxiety disorder, unspecified (4) Bipolar disorder, current episode mixed, severe, with psychotic features (5) UTI (urinary tract infection) (6) Mild cognitive impairment (7) Shortness of breath YOHANNES LITTLE MD Oct 24, 2019 09:02
--- NOTE | 2019-10-24 09:18 | PDOC ---
Exam Note: John Note: This note is a late entry for 10/23/2019 covers elements not covered in my initial note. Subjective: The patient was seen individually in the evening of 10/23/2019. Per Corine MCGOWAN she has been anxious tearful. She slept 7-3/4 hours previous night. Review of Systems: Impaired ambulation with walker. Positive for shortness of breath on O2 supplements. No CV, , eye system symptoms on review. Mental Status Exam: Oriented to herself and situation. Speech coherent. Abstraction is fair. Computation impaired. Language function intact. Attention span short. Mood and affect remains anxious. The patient is quite obsessive, repetitive, ruminative, tearful and crying as I met with her but the latter was better by the end of the visit. Laboratory Data: Reviewed. Impression: Bipolar disorder mixed with psychotic features. Mild cognitive impairment. Anxiety disorder unspecified. Impulse control disorder unspecified. Plan: No change from initial note. We will add Luvox 25 mg p.o. daily for her OCD symptoms. We will monitor her psychotropics and adjust as clinically indicated. Assessment: Vital Signs/I&O: Vital Signs Date Time Temp Pulse Resp B/P (MAP) Pulse Ox O2 Delivery O2 Flow Rate FiO2 10/24/19 08:28 97.7 10/23/19 20:42 96 10/23/19 19:41 82 135/79 10/23/19 16:18 20 10/22/19 16:09 Room Air I & O 10/23/19 10/23/19 10/24/19 15:00 23:00 07:00 Intake Total 240 ml 600 ml Balance 240 ml 600 ml Current Medications: I have reviewed the current psychotropics carefully including drug interactions. Risk benefit ratio favors no change other than as noted in my dictated progress note. Diagnosis: Problems: (1) Major depressive disorder, recurrent episode (2) Impulse control disorder, unspecified (3) Anxiety disorder, unspecified (4) Bipolar disorder, current episode mixed, severe, with psychotic features (5) Shortness of breath (6) Mild cognitive impairment YOHANNES LITTLE MD Oct 24, 2019 09:18
[2019-10-24] MEDS: CEPHALEXIN 250 MG CAPSULE PO SCH ×3 (09:29→20:05)
[2019-10-24] MEDS: ASPIRIN CHEWABLE 81 MG TABLET. PO SCH (09:29)
[2019-10-24] MEDS: clonazePAM 1 MG TABLET PO SCH ×2 (09:30→20:05)
[2019-10-24] MEDS: QUEtiapine 25 MG TABLET. PO SCH ×2 (09:30→13:11)
[2019-10-24] MEDS: DEXTROMETHORPHAN/QUINIDINE 20/10MG CAPSULE. PO SCH ×2 (09:30→20:05)
[2019-10-24] MEDS: LACTOBACILLUS RHAMNOSUS GG 1 CAPSULE. PO SCH ×2 (09:30→20:05)
[2019-10-24] MEDS: PROPRANOLOL 20 MG TABLET. PO SCH ×2 (09:30→20:05)
[2019-10-24] MEDS: busPIRone 10 MG TABLET. PO SCH ×2 (09:30→20:05)
[2019-10-24] MEDS: MULTIVITAMIN with MINERAL TABLET. PO SCH (09:30)
[2019-10-24] MEDS: ENOXAPARIN 40 MG/0.4 ML SYRINGE. SQ SCH (09:31)
[2019-10-24] MEDS: BENZONATATE 100 MG CAPSULE. PO SCH ×3 (09:31→20:05)
[2019-10-24] MEDS: oxyCODONE IR 5 MG TABLET PO PRN ×3 (09:38→20:06)
[2019-10-24] MEDS: clonazePAM 0.5 MG TABLET PO SCH (13:10)
[2019-10-24 15:21] VITALS: BP 124/84
[2019-10-24] MEDS: DIVALPROEX ER 500 MG TAB.ER.24H PO SCH (20:06)
[2019-10-24] MEDS: MELATONIN 3 MG TABLET PO SCH (20:06)
[2019-10-24] MEDS: traZODone 150 MG TABLET. PO SCH (20:06)
--- NOTE | 2019-10-24 22:05 | PDOC ---
Exam Note: John Note: Please also refer to the separate dictated note~for this date of service dictated separately.~Patient seen individually. Discussed the patient with Nursing staff reviewed the chart.~Reviewed interim history and current functioning. Reviewed vital signs,~Labs/ Radiology~and current medications noted below. Continue current treatment with the changes noted in the dictated addendum note Assessment: Vital Signs/I&O: Vital Signs Date Time Temp Pulse Resp B/P (MAP) Pulse Ox O2 Delivery O2 Flow Rate FiO2 10/24/19 21:06 95 10/24/19 20:44 98.3 10/24/19 20:05 82 124/84 10/24/19 15:21 20 10/22/19 16:09 Room Air I & O 10/23/19 10/23/19 10/24/19 15:00 23:00 07:00 Intake Total 240 ml 600 ml Balance 240 ml 600 ml Current Medications: Meds: Current Medications Medications (Trade) Dose Ordered Sig/Yuki Route PRN Reason Start Time Stop Time Status Last Admin Dose Admin Fluvoxamine Maleate (Luvox) 25 mg DAILY PO 10/24/19 09:00 10/24/19 09:31 I have reviewed the current psychotropics carefully including drug interactions. Risk benefit ratio favors no change other than as noted in my dictated progress note. Diagnosis: Problems: (1) Major depressive disorder, recurrent episode (2) Impulse control disorder, unspecified (3) Anxiety disorder, unspecified (4) Bipolar disorder, current episode mixed, severe, with psychotic features (5) Mild cognitive impairment (6) Shortness of breath YOHANNES LITTLE MD Oct 24, 2019 22:05
[2019-10-25 05:59] VITALS: BP 152/83
--- NOTE | 2019-10-25 07:45 | PDOC ---
Exam Note: John Note: This note is a late entry for 10/24/2019 covers elements not covered in my initial note. Subjective: The patient was seen on telehealth rounds in the evening of 10/24/2019 with Gino RN and Kassie RN. COVID-19 screen has been done on all patients and staff members since one patient has turned up positive for COVID-19 on the unit today. The unit is on lockdown per the [facility] ([facility])/Centers for Disease Control (CDC) due to the COVID positive patient on our unit, which was discovered. All patients are back in their rooms and are not using main dining room either to avoid group activities and exposure. Per Autumn MCGOWAN, she slept 7 hours previous night. She has been somewhat anxious with mood lability, whining, attention seeking, crying during showers per nursing report. She does complain of ongoing knee pain. Review of Systems: Impaired ambulation with walker. Positive for shortness of breath on O2 supplements. No CV, , eye system symptoms on review. Mental Status Exam: Oriented to herself and situation. I had met at some length in her room. She continues to have mood lability with some crying and worsening anxiety, other times better. Speech coherent. Abstraction is fair. Computation impaired. Language function intact. Attention span short. Mood and affect remains quite labile, tearful, anxious. No psychotic symptoms, suicidal or homicidal ideation. Laboratory Data: Reviewed. Impression: Bipolar disorder mixed with psychotic features. Mild cognitive impairment. Anxiety disorder unspecified. Impulse control disorder unspecified. Plan: No change from initial note. Assessment: Vital Signs/I&O: Vital Signs Date Time Temp Pulse Resp B/P (MAP) Pulse Ox O2 Delivery O2 Flow Rate FiO2 10/25/19 05:59 97.9 70 18 152/83 (106) 96 10/22/19 16:09 Room Air I & O 10/24/19 10/24/19 10/25/19 15:00 23:00 07:00 Intake Total 840 ml 480 ml Balance 840 ml 480 ml Current Medications: Meds: Current Medications Medications (Trade) Dose Ordered Sig/Yuki Route PRN Reason Start Time Stop Time Status Last Admin Dose Admin Fluvoxamine Maleate (Luvox) 25 mg DAILY PO 10/24/19 09:00 10/24/19 09:31 I have reviewed the current psychotropics carefully including drug interactions. Risk benefit ratio favors no change other than as noted in my dictated progress note. Diagnosis: Problems: (1) Major depressive disorder, recurrent episode (2) Schizoaffective disorder, bipolar type (3) Impulse control disorder, unspecified (4) Anxiety disorder, unspecified (5) Mild cognitive impairment (6) Shortness of breath YOHANNES LITTLE MD Oct 25, 2019 07:45
[2019-10-25] MEDS: busPIRone 10 MG TABLET. PO SCH ×2 (08:47→19:59)
[2019-10-25] MEDS: PROPRANOLOL 20 MG TABLET. PO SCH ×2 (08:47→20:04)
[2019-10-25] MEDS: ENOXAPARIN 40 MG/0.4 ML SYRINGE. SQ SCH (08:47)
[2019-10-25] MEDS: DEXTROMETHORPHAN/QUINIDINE 20/10MG CAPSULE. PO SCH ×2 (08:47→20:04)
[2019-10-25] MEDS: BENZONATATE 100 MG CAPSULE. PO SCH ×3 (08:47→19:59)
[2019-10-25] MEDS: ASPIRIN CHEWABLE 81 MG TABLET. PO SCH (08:47)
[2019-10-25] MEDS: LACTOBACILLUS RHAMNOSUS GG 1 CAPSULE. PO SCH ×2 (08:47→19:59)
[2019-10-25] MEDS: clonazePAM 1 MG TABLET PO SCH ×2 (08:47→20:04)
[2019-10-25] MEDS: MULTIVITAMIN with MINERAL TABLET. PO SCH (08:47)
[2019-10-25] MEDS: QUEtiapine 25 MG TABLET. PO SCH ×2 (08:48→13:08)
[2019-10-25] MEDS: oxyCODONE IR 5 MG TABLET PO PRN ×3 (08:53→19:59)
[2019-10-25] MEDS: clonazePAM 0.5 MG TABLET PO SCH (13:07)
[2019-10-25 15:37] VITALS: BP 131/79
[2019-10-25] MEDS: MELATONIN 3 MG TABLET PO SCH (19:58)
[2019-10-25] MEDS: traZODone 150 MG TABLET. PO SCH (19:59)
[2019-10-25] MEDS: DIVALPROEX ER 500 MG TAB.ER.24H PO SCH (19:59)
--- NOTE | 2019-10-25 22:08 | PDOC ---
Exam Note: John Note: Please also refer to the separate dictated note~for this date of service dictated separately.~Patient seen individually. Discussed the patient with Nursing staff reviewed the chart.~Reviewed interim history and current functioning. Reviewed vital signs,~Labs/ Radiology~and current medications noted below. Continue current treatment with the changes noted in the dictated addendum note Assessment: Vital Signs/I&O: Vital Signs Date Time Temp Pulse Resp B/P (MAP) Pulse Ox O2 Delivery O2 Flow Rate FiO2 10/25/19 20:04 88 131/79 10/25/19 19:59 94 10/25/19 19:05 97.2 10/25/19 15:37 18 10/25/19 15:20 Room Air I & O 10/24/19 10/24/19 10/25/19 15:00 23:00 07:00 Intake Total 840 ml 480 ml Balance 840 ml 480 ml Labs: Laboratory Tests Test 10/25/19 13:10 Coronavirus (COVID-19)(PCR) Negative (NEGATIVE) Current Medications: I have reviewed the current psychotropics carefully including drug interactions. Risk benefit ratio favors no change other than as noted in my dictated progress note. Diagnosis: Problems: (1) Major depressive disorder, recurrent episode (2) Schizoaffective disorder, bipolar type (3) Impulse control disorder, unspecified (4) Anxiety disorder, unspecified (5) Mild cognitive impairment (6) Shortness of breath YOHANNES LITTLE MD Oct 25, 2019 22:08
[2019-10-26 06:27] VITALS: BP 125/80
--- NOTE | 2019-10-26 07:11 | PDOC ---
Exam Note: John Note: This note is a late entry for 10/25/2019 covers elements not covered in my initial note. Subjective: The patient was seen on telehealth rounds in the evening of 10/25/2019 with nursing staff. The unit is on lockdown due to the COVID positive patient on our unit, which was discovered. Each patient is in their room, not able to come out to the dining room or to interact with others according to the recommendation by the [facility] of Health and Environment. Per Autumn MCGOWAN, she slept 6-3/4 hours previous night. She has been pleasant, spends much time in her room, very verbal, interactive on telehealth rounds in the evening with me. She is sleeping okay. She is much more compliant with her medications, not arguing about it. Review of Systems: Positive for back pain, shortness of breath on O2 supplemen ts. Impaired ambulation. No CV, , eye system symptoms on review. Mental Status Exam: Oriented to herself and situation. She had a good sense of humor evening of 10/24 as I met with her. Speech coherent. Abstraction is fair. Computation impaired. Language function intact. Attention span short. Mood and affect remains quite anxious, labile. No psychotic symptoms, suicidal or homicidal ideation. Laboratory Data: Reviewed. Impression: Bipolar disorder mixed with psychotic features. Mild cognitive impairment. Anxiety disorder unspecified. Impulse control disorder unspecified. Plan: No change from initial note. Assessment: Vital Signs/I&O: Vital Signs Date Time Temp Pulse Resp B/P (MAP) Pulse Ox O2 Delivery O2 Flow Rate FiO2 10/26/19 06:27 97.7 65 16 125/80 (95) 95 10/25/19 15:20 Room Air I & O 10/25/19 10/25/19 10/26/19 14:59 22:59 06:59 Intake Total 720 ml 120 ml 0 ml Balance 720 ml 120 ml 0 ml Labs: Laboratory Tests Test 10/25/19 13:10 Coronavirus (COVID-19)(PCR) Negative (NEGATIVE) Current Medications: I have reviewed the current psychotropics carefully including drug interactions. Risk benefit ratio favors no change other than as noted in my dictated progress note. Diagnosis: Problems: (1) Major depressive disorder, recurrent episode (2) Impulse control disorder, unspecified (3) Anxiety disorder, unspecified (4) Bipolar disorder, current episode mixed, severe, with psychotic features (5) Mild cognitive impairment (6) Shortness of breath YOHANNES LITTLE MD Oct 26, 2019 07:11
[2019-10-26] MEDS: busPIRone 10 MG TABLET. PO SCH ×2 (08:56→19:44)
[2019-10-26] MEDS: ASPIRIN CHEWABLE 81 MG TABLET. PO SCH (08:56)
[2019-10-26] MEDS: BENZONATATE 100 MG CAPSULE. PO SCH ×3 (08:57→19:45)
[2019-10-26] MEDS: clonazePAM 1 MG TABLET PO SCH ×2 (08:57→19:44)
[2019-10-26] MEDS: QUEtiapine 25 MG TABLET. PO SCH ×2 (08:57→13:18)
[2019-10-26] MEDS: MULTIVITAMIN with MINERAL TABLET. PO SCH (08:57)
[2019-10-26] MEDS: ENOXAPARIN 40 MG/0.4 ML SYRINGE. SQ SCH (08:57)
[2019-10-26] MEDS: LACTOBACILLUS RHAMNOSUS GG 1 CAPSULE. PO SCH ×2 (08:57→19:45)
[2019-10-26] MEDS: DEXTROMETHORPHAN/QUINIDINE 20/10MG CAPSULE. PO SCH ×2 (08:59→19:48)
[2019-10-26] MEDS: PROPRANOLOL 20 MG TABLET. PO SCH ×2 (08:59→19:48)
[2019-10-26] MEDS: oxyCODONE IR 5 MG TABLET PO PRN ×2 (09:09→19:45)
[2019-10-26] MEDS: clonazePAM 0.5 MG TABLET PO SCH (13:18)
[2019-10-26 16:40] VITALS: BP 146/77
[2019-10-26] MEDS: traZODone 150 MG TABLET. PO SCH (19:44)
[2019-10-26] MEDS: MELATONIN 3 MG TABLET PO SCH (19:44)
[2019-10-26] MEDS: DIVALPROEX ER 500 MG TAB.ER.24H PO SCH (19:45)
--- NOTE | 2019-10-26 22:06 | PDOC ---
Exam Note: John Note: Please also refer to the separate dictated note~for this date of service dictated separately.~Patient seen individually. Discussed the patient with Nursing staff reviewed the chart.~Reviewed interim history and current functioning. Reviewed vital signs,~Labs/ Radiology~and current medications noted below. Continue current treatment with the changes noted in the dictated addendum note Assessment: Vital Signs/I&O: Vital Signs Date Time Temp Pulse Resp B/P (MAP) Pulse Ox O2 Delivery O2 Flow Rate FiO2 10/26/19 19:48 86 146/77 10/26/19 19:45 95 10/26/19 18:20 98.5 10/26/19 16:40 18 Room Air I & O 10/25/19 10/25/19 10/26/19 15:00 23:00 07:00 Intake Total 720 ml 120 ml 0 ml Balance 720 ml 120 ml 0 ml Current Medications: I have reviewed the current psychotropics carefully including drug interactions. Risk benefit ratio favors no change other than as noted in my dictated progress note. Diagnosis: Problems: (1) Major depressive disorder, recurrent episode (2) Schizoaffective disorder, bipolar type (3) Impulse control disorder, unspecified (4) Anxiety disorder, unspecified (5) Bipolar disorder, current episode mixed, severe, with psychotic features (6) Mild cognitive impairment (7) Shortness of breath YOHANNES LITTLE MD Oct 26, 2019 22:06
--- NOTE | 2019-10-26 23:29 | PDOC ---
Exam Note: John Note: This note covers elements not covered in my initial note. Subjective: The patient was evaluated via telehealth rounds in the morning of 10/26/2019 for the treatment team meeting with Estefany (social service staff), and Corine MCGOWAN. Sleeping 7-1/2 to 8 hours. Appetite is 75%. She has been cooperative, remains somewhat labile, obsessive, crying at times regarding showers. The patient was seen on telehealth rounds in the evening of 10/26/2019 with nursing staff. Per Autumn MCGOWAN, she gets easily frustrated, wants to be in her room, wants to repeatedly talk to her sister. Review of Systems: Ambulation impaired with walker. No CV, , eye system symptoms on review. Mental Status Exam: Reasonably oriented. Speech coherent. Abstraction is fair. Computation impaired. Language function intact. Attention span short. Mood and affect remains labile but improved. Laboratory Data: Reviewed. Impression: Bipolar disorder mixed with psychotic features. Mild cognitive impairment. Anxiety disorder unspecified. Impulse control disorder unspecified. Plan: No change from initial note. Assessment: Vital Signs/I&O: Vital Signs Date Time Temp Pulse Resp B/P (MAP) Pulse Ox O2 Delivery O2 Flow Rate FiO2 10/26/19 23:21 97.9 95 10/26/19 19:48 86 146/77 10/26/19 16:40 18 Room Air I & O 10/25/19 10/25/19 10/26/19 15:00 23:00 07:00 Intake Total 720 ml 120 ml 0 ml Balance 720 ml 120 ml 0 ml Current Medications: I have reviewed the current psychotropics carefully including drug interactions. Risk benefit ratio favors no change other than as noted in my dictated progress note. Diagnosis: Problems: (1) Major depressive disorder, recurrent episode (2) Schizoaffective disorder, bipolar type (3) Impulse control disorder, unspecified (4) Anxiety disorder, unspecified (5) Bipolar disorder, current episode mixed, severe, with psychotic features (6) Mild cognitive impairment (7) Shortness of breath YOHANNES LITTLE MD Oct 26, 2019 23:29
[2019-10-27 06:27] VITALS: BP 137/73
[2019-10-27] MEDS: clonazePAM 1 MG TABLET PO SCH ×2 (07:57→20:07)
[2019-10-27] MEDS: MULTIVITAMIN with MINERAL TABLET. PO SCH (07:57)
[2019-10-27] MEDS: ASPIRIN CHEWABLE 81 MG TABLET. PO SCH (07:57)
[2019-10-27] MEDS: PROPRANOLOL 20 MG TABLET. PO SCH ×2 (07:57→20:06)
[2019-10-27] MEDS: busPIRone 10 MG TABLET. PO SCH ×2 (07:57→20:04)
[2019-10-27] MEDS: LACTOBACILLUS RHAMNOSUS GG 1 CAPSULE. PO SCH ×2 (07:58→20:03)
[2019-10-27] MEDS: QUEtiapine 25 MG TABLET. PO SCH ×2 (07:58→12:30)
[2019-10-27] MEDS: BENZONATATE 100 MG CAPSULE. PO SCH (07:58)
[2019-10-27] MEDS: ENOXAPARIN 40 MG/0.4 ML SYRINGE. SQ SCH (07:58)
[2019-10-27] MEDS: DEXTROMETHORPHAN/QUINIDINE 20/10MG CAPSULE. PO SCH ×2 (08:02→20:06)
[2019-10-27] MEDS: oxyCODONE IR 5 MG TABLET PO PRN ×3 (09:23→17:18)
[2019-10-27] MEDS ORDERED: BENZONATATE 100 MG CAPSULE. PO PRN (09:30)
--- NOTE | 2019-10-27 10:33 | TX PLAN ---
Interdisciplinary Tx Plan Admission Information Oct 12, 2019 at 21:23 Legal Status (on Admission): Voluntary DPOA/Guardian Name: Aaron Luther (Public Plating Engineer) Contact Other Contact Name: [facility] Other Contact Verified Code Status: Full Code Allergies: Coded Allergies: No Known Drug Allergies (Unverified , 10/12/19) Diagnoses Primary Diagnosis: Kicking staff, yelling, refusing to sit down, hit CONTINUITY PERSON in the head, insomnia, restless Reasons for Admission: Sig. Change Sleep, Combative, Poor impulse control Problem in Patient's Words: During her knee procedure, they stopped all of her psych meds and did not restart them. Bx contiue to increase. Pt guardian reports that pt has never been combative. Additional Admission Comments: According to the intake, pt is kicking at staff, yelling, refusing to sit down, hit CONTINUITY PERSON in the head, combative, uncooperative, restless, insomnia Problems Active Problems: restless labile mood (crying to laughing) attention-seeking Inactive Problems: Medication compliant Pt Strengths/Limitations Ability for [place]: Poor Cognitive Functioning/Ability: Poor Communication Skills/Ability: Fair Financial Resources: Fair Insight/Judgement: Poor Intellectual Ability: Poor Physical Health: Poor Social Skills: Poor Stability in Family: Poor Stability in School/Work: Poor Verbal Skills: Poor Discharge Criteria Discharge Criteria: No need for close observ., Adequate arrangements @DC, Improved behavior, Improved mood/thought Preliminary Discharge Plan Preliminary DC Plan: Current Living Arrange. Special Precautions Fall Risk: Low Initial D/C Plan Pt will plan to return to [facility] once stable Identified Discharge Needs: Psychiatric care and potential need for counseling Currently Utilized Resources Currently Utilized Resources/P: PCP Identified Problems/Hx/Goals Objectives/Short-Term Goals Short Term Goals: Dec. Outbursts, Dec. Symp. Depression, Medication Stabilization, Promote Coping Skill Short Term Goals in Patient's: I just want to make sure I'm going home Interventions/Frequency Staff Interventions/Frequency&: Psychiatrist to asses pt atleast 3x per week Social work to assess pt at east 2x per week. Nursing to assess pt behavior, medications and complete 15 minute checks daily. Encourage participation in group activities or 1:1 engagement based off Activity Dept assessment and goals. 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 Pt was teamed on 10/13/2019 to remain in compliance with regulations. HILLARY HASSAN Oct 27, 2019 10:33
--- NOTE | 2019-10-27 10:39 | TX PLAN ---
Interdisciplinary Tx Plan Admission Information Oct 12, 2019 at 21:23 Legal Status (on Admission): Voluntary DPOA/Guardian Name: Aaron Luther (Public Mechanical Laboratory Technician) Contact Other Contact Name: [facility] Other Contact Verified Code Status: Full Code Allergies: Coded Allergies: No Known Drug Allergies (Unverified , 10/12/19) Diagnoses Primary Diagnosis: Kicking staff, yelling, refusing to sit down, hit CYCLE DIRECTOR in the head, insomnia, restless Reasons for Admission: Sig. Change Sleep, Combative, Poor impulse control Problem in Patient's Words: During her knee procedure, they stopped all of her psych meds and did not restart them. Bx contiue to increase. Pt guardian reports that pt has never been combative. Additional Admission Comments: According to the intake, pt is kicking at staff, yelling, refusing to sit down, hit CYCLE DIRECTOR in the head, combative, uncooperative, restless, insomnia Problems Active Problems: restless labile mood (crying to laughing) attention-seeking Inactive Problems: Medication compliant Pt Strengths/Limitations Ability for [place]: Poor Cognitive Functioning/Ability: Poor Communication Skills/Ability: Fair Financial Resources: Fair Insight/Judgement: Poor Intellectual Ability: Poor Physical Health: Poor Social Skills: Poor Stability in Family: Poor Stability in School/Work: Poor Verbal Skills: Poor Discharge Criteria Discharge Criteria: No need for close observ., Adequate arrangements @DC, Improved behavior, Improved mood/thought Preliminary Discharge Plan Preliminary DC Plan: Current Living Arrange. Special Precautions Fall Risk: Low Initial D/C Plan Pt will plan to return to [facility] once stable Identified Discharge Needs: Psychiatric care and potential need for counseling Currently Utilized Resources Currently Utilized Resources/P: PCP Identified Problems/Hx/Goals Objectives/Short-Term Goals Short Term Goals: Dec. Outbursts, Dec. Symp. Depression, Medication Stabilization, Promote Coping Skill Short Term Goals in Patient's: I just want to make sure I'm going home Interventions/Frequency Staff Interventions/Frequency&: Psychiatrist to asses pt atleast 3x per week Social work to assess pt at east 2x per week. Nursing to assess pt behavior, medications and complete 15 minute checks daily. Encourage participation in group activities or 1:1 engagement based off Activity Dept assessment and goals. 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 Pt is eating 75-100% of meals and sleeping on average 7.75 hours a night. Pt needs encouragement to attend groups as she tends to sit up by the [employer] station. Pt continues to be labile with brief periods of crying and laughing. Pt does have to be redirected for wanting things right away and needs continual reassurance that no one is mad at her. Pt Covoid test was negative and will continue to be monitored. Once stable and out of quarantine pt is able to discharge back to [facility]. HILLARY HASSAN Oct 27, 2019 10:39
[2019-10-27] MEDS: clonazePAM 0.5 MG TABLET PO SCH (12:30)
[2019-10-27 15:19] VITALS: BP 130/79
[2019-10-27] MEDS: MELATONIN 3 MG TABLET PO SCH (20:04)
[2019-10-27] MEDS: traZODone 150 MG TABLET. PO SCH (20:04)
[2019-10-27] MEDS: DIVALPROEX ER 500 MG TAB.ER.24H PO SCH (20:05)
--- NOTE | 2019-10-27 21:58 | PDOC ---
Exam Note: John Note: Please also refer to the separate dictated note~for this date of service dictated separately.~Patient seen individually. Discussed the patient with Nursing staff reviewed the chart.~Reviewed interim history and current functioning. Reviewed vital signs,~Labs/ Radiology~and current medications noted below. Continue current treatment with the changes noted in the dictated addendum note Assessment: Vital Signs/I&O: Vital Signs Date Time Temp Pulse Resp B/P (MAP) Pulse Ox O2 Delivery O2 Flow Rate FiO2 10/27/19 20:06 71 130/79 10/27/19 20:00 97.9 95 10/27/19 15:19 18 Room Air I & O 10/26/19 10/26/19 10/27/19 15:00 23:00 07:00 Intake Total 722 ml 240 ml 0 ml Balance 722 ml 240 ml 0 ml Current Medications: I have reviewed the current psychotropics carefully including drug interactions. Risk benefit ratio favors no change other than as noted in my dictated progress note. Diagnosis: Problems: (1) Major depressive disorder, recurrent episode (2) Schizoaffective disorder, bipolar type (3) Impulse control disorder, unspecified (4) Anxiety disorder, unspecified (5) Bipolar disorder, current episode mixed, severe, with psychotic features (6) Mild cognitive impairment (7) Shortness of breath YOHANNES LITTLE MD Oct 27, 2019 21:58
[2019-10-28 06:32] VITALS: BP 122/80
[2019-10-28] MEDS: clonazePAM 1 MG TABLET PO SCH ×2 (08:19→19:44)
[2019-10-28] MEDS: PROPRANOLOL 20 MG TABLET. PO SCH ×2 (08:19→19:42)
[2019-10-28] MEDS: busPIRone 10 MG TABLET. PO SCH ×2 (08:19→19:40)
[2019-10-28] MEDS: LACTOBACILLUS RHAMNOSUS GG 1 CAPSULE. PO SCH ×2 (08:19→19:40)
[2019-10-28] MEDS: ASPIRIN CHEWABLE 81 MG TABLET. PO SCH (08:19)
[2019-10-28] MEDS: MULTIVITAMIN with MINERAL TABLET. PO SCH (08:20)
[2019-10-28] MEDS: DEXTROMETHORPHAN/QUINIDINE 20/10MG CAPSULE. PO SCH ×2 (08:20→19:42)
[2019-10-28] MEDS: ACETAMINOPHEN 325 MG TABLET PO PRN (08:20)
[2019-10-28] MEDS: ENOXAPARIN 40 MG/0.4 ML SYRINGE. SQ SCH (08:20)
[2019-10-28] MEDS: QUEtiapine 25 MG TABLET. PO SCH ×2 (08:20→12:39)
[2019-10-28] MEDS: oxyCODONE IR 5 MG TABLET PO PRN ×3 (08:20→19:44)
[2019-10-28 08:55] LABS: BASO % 0 % (0-3); EOS # 0.1 x10^3/uL (0.0-0.7); EOS % 1 % (0-3); HEMATOCRIT 37.7 % (36.0-47.0); HEMOGLOBIN 12.6 g/dL (12.0-15.5); LYMPH # 0.8 x10^3/uL (1.0-4.8); LYMPH % 16 % (24-48); MEAN CORPUSCULAR HEMOGLOBIN 30 pg (25-35); MEAN CORPUSCULAR HGB CONC 33 g/dL (31-37); MEAN CORPUSCULAR VOLUME 90 fL (79-100); MONO # 0.7 x10^3/uL (0.0-1.1); MONO % 14 % (0-9); NEUT # 3.5 x10^3uL (1.8-7.7); NEUT % 68 % (31-73); PLATELET COUNT 307 x10^3/uL (140-400); RED CELL DISTRIBUTION WIDTH 13.9 % (11.5-14.5); WHITE BLOOD COUNT 5.1 x10^3/uL (4.0-11.0)
[2019-10-28 09:06] LABS: ALBUMIN 3.5 g/dL (3.4-5.0); ALBUMIN/GLOBULIN RATIO 0.9 (1.0-1.7); CALCIUM 9.3 mg/dL (8.5-10.1); CREATININE 0.8 mg/dL (0.6-1.0); GFR 72.4; POTASSIUM 3.9 mmol/L (3.5-5.1); TOTAL BILIRUBIN 0.3 mg/dL (0.2-1.0); TOTAL PROTEIN 7.2 g/dL (6.4-8.2)
[2019-10-28] MEDS: clonazePAM 0.5 MG TABLET PO SCH (12:40)
[2019-10-28 16:03] VITALS: BP 149/81
[2019-10-28] MEDS: traZODone 150 MG TABLET. PO SCH (19:40)
[2019-10-28] MEDS: DIVALPROEX ER 500 MG TAB.ER.24H PO SCH (19:40)
[2019-10-28] MEDS: MELATONIN 3 MG TABLET PO SCH (19:41)
--- NOTE | 2019-10-28 21:58 | PDOC ---
Exam Note: John Note: Please also refer to the separate dictated note~for this date of service dictated separately.~Patient seen individually. Discussed the patient with Nursing staff reviewed the chart.~Reviewed interim history and current functioning. Reviewed vital signs,~Labs/ Radiology~and current medications noted below. Continue current treatment with the changes noted in the dictated addendum note Assessment: Vital Signs/I&O: Vital Signs Date Time Temp Pulse Resp B/P (MAP) Pulse Ox O2 Delivery O2 Flow Rate FiO2 10/28/19 21:09 94 10/28/19 20:38 98.1 10/28/19 19:42 65 149/81 10/28/19 16:03 17 Room Air I & O 10/27/19 10/27/19 10/28/19 15:00 23:00 07:00 Intake Total 580 ml 440 ml Balance 580 ml 440 ml Labs: Laboratory Tests Test 10/28/19 08:45 White Blood Count 5.1 x10^3/uL (4.0-11.0) Red Blood Count 4.20 x10^6/uL (3.50-5.40) Hemoglobin 12.6 g/dL (12.0-15.5) Hematocrit 37.7 % (36.0-47.0) Mean Corpuscular Volume 90 fL (79-100) Mean Corpuscular Hemoglobin 30 pg (25-35) Mean Corpuscular Hemoglobin Concent 33 g/dL (31-37) Red Cell Distribution Width 13.9 % (11.5-14.5) Platelet Count 307 x10^3/uL (140-400) Neutrophils (%) (Auto) 68 % (31-73) Lymphocytes (%) (Auto) 16 % (24-48) L Monocytes (%) (Auto) 14 % (0-9) H Eosinophils (%) (Auto) 1 % (0-3) Basophils (%) (Auto) 0 % (0-3) Neutrophils # (Auto) 3.5 x10^3uL (1.8-7.7) Lymphocytes # (Auto) 0.8 x10^3/uL (1.0-4.8) L Monocytes # (Auto) 0.7 x10^3/uL (0.0-1.1) Eosinophils # (Auto) 0.1 x10^3/uL (0.0-0.7) Basophils # (Auto) 0.0 x10^3/uL (0.0-0.2) Sodium Level 137 mmol/L (136-145) Potassium Level 3.9 mmol/L (3.5-5.1) Chloride Level 100 mmol/L (98-107) Carbon Dioxide Level 32 mmol/L (21-32) Anion Gap 5 (6-14) L Blood Urea Nitrogen 13 mg/dL (7-20) Creatinine 0.8 mg/dL (0.6-1.0) Estimated GFR (Cockcroft-Gault) 72.4 BUN/Creatinine Ratio 16 (6-20) Glucose Level 167 mg/dL (70-99) H Calcium Level 9.3 mg/dL (8.5-10.1) Total Bilirubin 0.3 mg/dL (0.2-1.0) Aspartate Amino Transferase (AST) 12 U/L (15-37) L Alanine Aminotransferase (ALT) 20 U/L (14-59) Alkaline Phosphatase 319 U/L (46-116) H Total Protein 7.2 g/dL (6.4-8.2) Albumin 3.5 g/dL (3.4-5.0) Albumin/Globulin Ratio 0.9 (1.0-1.7) L Current Medications: I have reviewed the current psychotropics carefully including drug interactions. Risk benefit ratio favors no change other than as noted in my dictated progress note. Diagnosis: Problems: (1) Major depressive disorder, recurrent episode (2) Schizoaffective disorder, bipolar type (3) Impulse control disorder, unspecified (4) Anxiety disorder, unspecified (5) Bipolar disorder, current episode mixed, severe, with psychotic features (6) Mild cognitive impairment (7) Shortness of breath YOHANNES LITTLE MD Oct 28, 2019 21:58
[2019-10-29 06:31] VITALS: BP 136/81
--- NOTE | 2019-10-29 06:51 | PDOC ---
Exam Note: John Note: This note is a late entry for 10/27/2019 covers elements not covered in my initial note. Subjective: The patient was evaluated on telehealth rounds in the evening of 10/27/2019 with Larry MCGOWAN taking the camera around. Per Amisha MCGOWAN, she slept 6-3/4 hours previous night. Overall she is somewhat better, less anxious, still somewhat obsessive. Orthopedics was consulted since she is status post open reduction and internal fixation with repeat x-ray. We will defer to them for follow-up. Review of Systems: Ambulation impaired with walker. No CV, , eye system symptoms on review. Mental Status Exam: Reasonably oriented. She is quite animated, verbal, somewhat obsessive. I processed this with her. Speech coherent. Abstraction is fair. Computation impaired. Language function intact. Attention span bree rt. Mood and affect remains labile, less anxious. Laboratory Data: Reviewed. Impression: Bipolar disorder mixed with psychotic features. Mild cognitive impairment. Anxiety disorder unspecified. Impulse control disorder unspecified. Plan: No change from initial note. Assessment: Vital Signs/I&O: Vital Signs Date Time Temp Pulse Resp B/P (MAP) Pulse Ox O2 Delivery O2 Flow Rate FiO2 10/29/19 06:31 97.3 56 16 136/81 (99) 93 Room Air I & O 10/28/19 10/28/19 10/29/19 15:00 23:00 07:00 Intake Total 480 ml 220 ml Balance 480 ml 220 ml Labs: Laboratory Tests Test 10/28/19 08:45 White Blood Count 5.1 x10^3/uL (4.0-11.0) Red Blood Count 4.20 x10^6/uL (3.50-5.40) Hemoglobin 12.6 g/dL (12.0-15.5) Hematocrit 37.7 % (36.0-47.0) Mean Corpuscular Volume 90 fL (79-100) Mean Corpuscular Hemoglobin 30 pg (25-35) Mean Corpuscular Hemoglobin Concent 33 g/dL (31-37) Red Cell Distribution Width 13.9 % (11.5-14.5) Platelet Count 307 x10^3/uL (140-400) Neutrophils (%) (Auto) 68 % (31-73) Lymphocytes (%) (Auto) 16 % (24-48) L Monocytes (%) (Auto) 14 % (0-9) H Eosinophils (%) (Auto) 1 % (0-3) Basophils (%) (Auto) 0 % (0-3) Neutrophils # (Auto) 3.5 x10^3uL (1.8-7.7) Lymphocytes # (Auto) 0.8 x10^3/uL (1.0-4.8) L Monocytes # (Auto) 0.7 x10^3/uL (0.0-1.1) Eosinophils # (Auto) 0.1 x10^3/uL (0.0-0.7) Basophils # (Auto) 0.0 x10^3/uL (0.0-0.2) Sodium Level 137 mmol/L (136-145) Potassium Level 3.9 mmol/L (3.5-5.1) Chloride Level 100 mmol/L (98-107) Carbon Dioxide Level 32 mmol/L (21-32) Anion Gap 5 (6-14) L Blood Urea Nitrogen 13 mg/dL (7-20) Creatinine 0.8 mg/dL (0.6-1.0) Estimated GFR (Cockcroft-Gault) 72.4 BUN/Creatinine Ratio 16 (6-20) Glucose Level 167 mg/dL (70-99) H Calcium Level 9.3 mg/dL (8.5-10.1) Total Bilirubin 0.3 mg/dL (0.2-1.0) Aspartate Amino Transferase (AST) 12 U/L (15-37) L Alanine Aminotransferase (ALT) 20 U/L (14-59) Alkaline Phosphatase 319 U/L (46-116) H Total Protein 7.2 g/dL (6.4-8.2) Albumin 3.5 g/dL (3.4-5.0) Albumin/Globulin Ratio 0.9 (1.0-1.7) L Current Medications: I have reviewed the current psychotropics carefully including drug interactions. Risk benefit ratio favors no change other than as noted in my dictated progress note. Diagnosis: Problems: (1) Major depressive disorder, recurrent episode (2) Schizoaffective disorder, bipolar type (3) Impulse control disorder, unspecified (4) Anxiety disorder, unspecified (5) Bipolar disorder, current episode mixed, severe, with psychotic features (6) Mild cognitive impairment (7) Shortness of breath YOHANNES LITTLE MD Oct 29, 2019 06:51
--- NOTE | 2019-10-29 07:02 | PDOC ---
Exam Note: John Note: This note is a late entry for 10/28/2019 covers elements not covered in my initial note. Subjective: The patient was evaluated on telehealth rounds in the evening of 10/28/2019 with Corine MCGOWAN taking the camera around. Per Corine RN, she slept 5-1/4 hours previous night. Previous evening she was restless, labile, less obsessed regarding calling her sister on the telephone. Review of Systems: Ambulation impaired with walker. No CV, , eye system symptoms on review. Mental Status Exam: Reasonably oriented. She is verbal, anxious, somewhat obsessive. No suicidal or homicidal ideation. Attention span short. Mood and affect remains labile. Laboratory Data: Reviewed. Impression: Bipolar disorder mixed with psychotic features. Mild cognitive impairment. Anxiety disorder unspecified. Impulse control disorder unspecified. Plan: Increase Luvox to 50 mg p.o. h.s. Continue rest unchanged. Valproic acid level is therapeutic. Assessment: Vital Signs/I&O: Vital Signs Date Time Temp Pulse Resp B/P (MAP) Pulse Ox O2 Delivery O2 Flow Rate FiO2 10/29/19 06:31 97.3 56 16 136/81 (99) 93 Room Air I & O 10/28/19 10/28/19 10/29/19 15:00 23:00 07:00 Intake Total 480 ml 220 ml Balance 480 ml 220 ml Labs: Laboratory Tests Test 10/28/19 08:45 White Blood Count 5.1 x10^3/uL (4.0-11.0) Red Blood Count 4.20 x10^6/uL (3.50-5.40) Hemoglobin 12.6 g/dL (12.0-15.5) Hematocrit 37.7 % (36.0-47.0) Mean Corpuscular Volume 90 fL (79-100) Mean Corpuscular Hemoglobin 30 pg (25-35) Mean Corpuscular Hemoglobin Concent 33 g/dL (31-37) Red Cell Distribution Width 13.9 % (11.5-14.5) Platelet Count 307 x10^3/uL (140-400) Neutrophils (%) (Auto) 68 % (31-73) Lymphocytes (%) (Auto) 16 % (24-48) L Monocytes (%) (Auto) 14 % (0-9) H Eosinophils (%) (Auto) 1 % (0-3) Basophils (%) (Auto) 0 % (0-3) Neutrophils # (Auto) 3.5 x10^3uL (1.8-7.7) Lymphocytes # (Auto) 0.8 x10^3/uL (1.0-4.8) L Monocytes # (Auto) 0.7 x10^3/uL (0.0-1.1) Eosinophils # (Auto) 0.1 x10^3/uL (0.0-0.7) Basophils # (Auto) 0.0 x10^3/uL (0.0-0.2) Sodium Level 137 mmol/L (136-145) Potassium Level 3.9 mmol/L (3.5-5.1) Chloride Level 100 mmol/L (98-107) Carbon Dioxide Level 32 mmol/L (21-32) Anion Gap 5 (6-14) L Blood Urea Nitrogen 13 mg/dL (7-20) Creatinine 0.8 mg/dL (0.6-1.0) Estimated GFR (Cockcroft-Gault) 72.4 BUN/Creatinine Ratio 16 (6-20) Glucose Level 167 mg/dL (70-99) H Calcium Level 9.3 mg/dL (8.5-10.1) Total Bilirubin 0.3 mg/dL (0.2-1.0) Aspartate Amino Transferase (AST) 12 U/L (15-37) L Alanine Aminotransferase (ALT) 20 U/L (14-59) Alkaline Phosphatase 319 U/L (46-116) H Total Protein 7.2 g/dL (6.4-8.2) Albumin 3.5 g/dL (3.4-5.0) Albumin/Globulin Ratio 0.9 (1.0-1.7) L Current Medications: I have reviewed the current psychotropics carefully including drug interactions. Risk benefit ratio favors no change other than as noted in my dictated progress note. Diagnosis: Problems: (1) Major depressive disorder, recurrent episode (2) Schizoaffective disorder, bipolar type (3) Impulse control disorder, unspecified (4) Anxiety disorder, unspecified (5) Bipolar disorder, current episode mixed, severe, with psychotic features (6) Mild cognitive impairment (7) Shortness of breath YOHANNES LITTLE MD Oct 29, 2019 07:02
[2019-10-29] MEDS: PROPRANOLOL 20 MG TABLET. PO SCH ×2 (08:06→19:34)
[2019-10-29] MEDS: busPIRone 10 MG TABLET. PO SCH ×2 (08:06→19:33)
[2019-10-29] MEDS: QUEtiapine 25 MG TABLET. PO SCH ×2 (08:06→13:35)
[2019-10-29] MEDS: DEXTROMETHORPHAN/QUINIDINE 20/10MG CAPSULE. PO SCH ×2 (08:06→19:34)
[2019-10-29] MEDS: LACTOBACILLUS RHAMNOSUS GG 1 CAPSULE. PO SCH ×2 (08:06→19:32)
[2019-10-29] MEDS: clonazePAM 1 MG TABLET PO SCH ×2 (08:06→19:33)
[2019-10-29] MEDS: ASPIRIN CHEWABLE 81 MG TABLET. PO SCH (08:06)
[2019-10-29] MEDS: oxyCODONE IR 5 MG TABLET PO PRN ×3 (08:07→19:35)
[2019-10-29] MEDS: ACETAMINOPHEN 325 MG TABLET PO PRN ×2 (08:07→13:35)
[2019-10-29] MEDS: MULTIVITAMIN with MINERAL TABLET. PO SCH (08:07)
[2019-10-29] MEDS: CHOLECALCIFEROL (VITAMIN D3) 50,000 UNIT CAPSULE PO SCH (08:09)
[2019-10-29] MEDS: ENOXAPARIN 40 MG/0.4 ML SYRINGE. SQ SCH (08:11)
[2019-10-29] MEDS: clonazePAM 0.5 MG TABLET PO SCH (13:35)
[2019-10-29 16:27] VITALS: BP 150/88
[2019-10-29] MEDS: DIVALPROEX ER 500 MG TAB.ER.24H PO SCH (19:33)
[2019-10-29] MEDS: traZODone 150 MG TABLET. PO SCH (19:33)
[2019-10-29] MEDS: MELATONIN 3 MG TABLET PO SCH (19:33)
--- NOTE | 2019-10-29 21:55 | PDOC ---
Exam Note: John Note: Please also refer to the separate dictated note~for this date of service dictated separately.~Patient seen individually. Discussed the patient with Nursing staff reviewed the chart.~Reviewed interim history and current functioning. Reviewed vital signs,~Labs/ Radiology~and current medications noted below. Continue current treatment with the changes noted in the dictated addendum note Assessment: Vital Signs/I&O: Vital Signs Date Time Temp Pulse Resp B/P (MAP) Pulse Ox O2 Delivery O2 Flow Rate FiO2 10/29/19 21:36 97.8 93 10/29/19 19:34 73 150/88 10/29/19 16:27 18 10/29/19 06:31 Room Air I & O 10/28/19 10/28/19 10/29/19 15:00 23:00 07:00 Intake Total 480 ml 220 ml Balance 480 ml 220 ml Current Medications: Meds: Current Medications Medications (Trade) Dose Ordered Sig/Yuki Route PRN Reason Start Time Stop Time Status Last Admin Dose Admin Fluvoxamine Maleate (Luvox) 50 mg DAILY PO 10/29/19 09:00 10/29/19 08:09 I have reviewed the current psychotropics carefully including drug interactions. Risk benefit ratio favors no change other than as noted in my dictated progress note. Diagnosis: Problems: (1) Major depressive disorder, recurrent episode (2) Schizoaffective disorder, bipolar type (3) Impulse control disorder, unspecified (4) Anxiety disorder, unspecified (5) Bipolar disorder, current episode mixed, severe, with psychotic features (6) Mild cognitive impairment (7) Shortness of breath YOHANNES LITTLE MD Oct 29, 2019 21:55
--- NOTE | 2019-10-29 23:06 | PDOC ---
Exam Note: John Note: This note is for 10/29/2019 covers elements not covered in my initial note. Subjective: The patient was evaluated on telehealth rounds in the evening of 10/29/2019 with Corine MCGOWAN with the camera around. Per Corine RN, she slept 7- 3/4 hours previous night. Previous night she was anxious, crying but none of t hat evident today. She is less obsessed about calling her sister and was proud of it as I complimented her on this. Review of Systems: Ambulation impaired with walker. No CV, , pulmonary, eye system symptoms on review. Mental Status Exam: Reasonably oriented. She is quite animated, verbal, interactive, pleasant, smiling as I met with her audiovisually. Abstraction fair. Computation impaired. Attention span short. Mood and affect withdrawn. Laboratory Data: Reviewed. Impression: Bipolar disorder mixed with psychotic features. Mild cognitive impairment. Anxiety disorder unspecified. Impulse control disorder unspecif ied. Plan: Continue rest unchanged. Assessment: Vital Signs/I&O: Vital Signs Date Time Temp Pulse Resp B/P (MAP) Pulse Ox O2 Delivery O2 Flow Rate FiO2 10/29/19 21:36 97.8 93 10/29/19 19:34 73 150/88 10/29/19 16:27 18 10/29/19 06:31 Room Air I & O 10/28/19 10/28/19 10/29/19 15:00 23:00 07:00 Intake Total 480 ml 220 ml Balance 480 ml 220 ml Current Medications: Meds: Current Medications Medications (Trade) Dose Ordered Sig/Yuki Route PRN Reason Start Time Stop Time Status Last Admin Dose Admin Fluvoxamine Maleate (Luvox) 50 mg DAILY PO 10/29/19 09:00 10/29/19 08:09 I have reviewed the current psychotropics carefully including drug interactions. Risk benefit ratio favors no change other than as noted in my dictated progress note. Diagnosis: Problems: (1) Mild cognitive impairment (2) Bipolar disorder, current episode mixed, severe, with psychotic features (3) Anxiety disorder, unspecified (4) Schizoaffective disorder, bipolar type (5) Major depressive disorder, recurrent episode YOHANNES LITTLE MD Oct 29, 2019 23:06
[2019-10-30] MEDS: oxyCODONE IR 5 MG TABLET PO PRN ×3 (04:59→19:45)
[2019-10-30 05:49] VITALS: BP 136/80
[2019-10-30] MEDS: ASPIRIN CHEWABLE 81 MG TABLET. PO SCH (08:52)
[2019-10-30] MEDS: busPIRone 10 MG TABLET. PO SCH ×2 (08:52→19:42)
[2019-10-30] MEDS: LACTOBACILLUS RHAMNOSUS GG 1 CAPSULE. PO SCH ×2 (08:52→19:42)
[2019-10-30] MEDS: clonazePAM 1 MG TABLET PO SCH ×2 (08:53→19:43)
[2019-10-30] MEDS: PROPRANOLOL 20 MG TABLET. PO SCH ×2 (08:53→19:42)
[2019-10-30] MEDS: ENOXAPARIN 40 MG/0.4 ML SYRINGE. SQ SCH (08:54)
[2019-10-30] MEDS: QUEtiapine 25 MG TABLET. PO SCH ×2 (08:55→12:27)
[2019-10-30] MEDS: MULTIVITAMIN with MINERAL TABLET. PO SCH (08:55)
[2019-10-30] MEDS: DEXTROMETHORPHAN/QUINIDINE 20/10MG CAPSULE. PO SCH ×2 (08:55→19:41)
[2019-10-30 10:43] LABS: BASO % 0 % (0-3); EOS # 0.1 x10^3/uL (0.0-0.7); EOS % 2 % (0-3); HEMATOCRIT 36.9 % (36.0-47.0); HEMOGLOBIN 12.5 g/dL (12.0-15.5); LYMPH # 0.7 x10^3/uL (1.0-4.8); LYMPH % 15 % (24-48); MEAN CORPUSCULAR HEMOGLOBIN 31 pg (25-35); MEAN CORPUSCULAR HGB CONC 34 g/dL (31-37); MEAN CORPUSCULAR VOLUME 90 fL (79-100); MONO # 0.7 x10^3/uL (0.0-1.1); MONO % 14 % (0-9); NEUT # 3.3 x10^3uL (1.8-7.7); NEUT % 69 % (31-73); PLATELET COUNT 319 x10^3/uL (140-400); RED BLOOD COUNT 4.09 x10^6/uL (3.50-5.40); RED CELL DISTRIBUTION WIDTH 14.2 % (11.5-14.5); WHITE BLOOD COUNT 4.8 x10^3/uL (4.0-11.0)
[2019-10-30 10:51] LABS: GFR 84.5; POTASSIUM 3.9 mmol/L (3.5-5.1); TOTAL BILIRUBIN 0.3 mg/dL (0.2-1.0)
[2019-10-30 11:10] LABS: ALBUMIN 3.5 g/dL (3.4-5.0); ALBUMIN/GLOBULIN RATIO 0.9 (1.0-1.7); CALCIUM 9.1 mg/dL (8.5-10.1); CREATININE 0.7 mg/dL (0.6-1.0); TOTAL PROTEIN 7.2 g/dL (6.4-8.2)
[2019-10-30] MEDS: clonazePAM 0.5 MG TABLET PO SCH (12:27)
[2019-10-30] MEDS: ACETAMINOPHEN 325 MG TABLET PO PRN ×2 (12:27→19:45)
[2019-10-30 16:25] VITALS: BP 117/76
[2019-10-30] MEDS: DIVALPROEX ER 500 MG TAB.ER.24H PO SCH (19:42)
[2019-10-30] MEDS: MELATONIN 3 MG TABLET PO SCH (19:43)
[2019-10-30] MEDS: traZODone 150 MG TABLET. PO SCH (19:43)
--- NOTE | 2019-10-30 22:09 | PDOC ---
Exam Note: John Note: Please also refer to the separate dictated note~for this date of service dictated separately.~Patient seen individually. Discussed the patient with Nursing staff reviewed the chart.~Reviewed interim history and current functioning. Reviewed vital signs,~Labs/ Radiology~and current medications noted below. Continue current treatment with the changes noted in the dictated addendum note Assessment: Vital Signs/I&O: Vital Signs Date Time Temp Pulse Resp B/P (MAP) Pulse Ox O2 Delivery O2 Flow Rate FiO2 10/30/19 21:00 98.1 94 10/30/19 19:42 66 117/76 10/30/19 16:25 16 Room Air I & O 10/29/19 10/29/19 10/30/19 15:00 23:00 07:00 Intake Total 360 ml 220 ml Balance 360 ml 220 ml Labs: Laboratory Tests Test 10/30/19 09:45 White Blood Count 4.8 x10^3/uL (4.0-11.0) Red Blood Count 4.09 x10^6/uL (3.50-5.40) Hemoglobin 12.5 g/dL (12.0-15.5) Hematocrit 36.9 % (36.0-47.0) Mean Corpuscular Volume 90 fL (79-100) Mean Corpuscular Hemoglobin 31 pg (25-35) Mean Corpuscular Hemoglobin Concent 34 g/dL (31-37) Red Cell Distribution Width 14.2 % (11.5-14.5) Platelet Count 319 x10^3/uL (140-400) Neutrophils (%) (Auto) 69 % (31-73) Lymphocytes (%) (Auto) 15 % (24-48) L Monocytes (%) (Auto) 14 % (0-9) H Eosinophils (%) (Auto) 2 % (0-3) Basophils (%) (Auto) 0 % (0-3) Neutrophils # (Auto) 3.3 x10^3uL (1.8-7.7) Lymphocytes # (Auto) 0.7 x10^3/uL (1.0-4.8) L Monocytes # (Auto) 0.7 x10^3/uL (0.0-1.1) Eosinophils # (Auto) 0.1 x10^3/uL (0.0-0.7) Basophils # (Auto) 0.0 x10^3/uL (0.0-0.2) Sodium Level 136 mmol/L (136-145) Potassium Level 3.9 mmol/L (3.5-5.1) Chloride Level 98 mmol/L (98-107) Carbon Dioxide Level 29 mmol/L (21-32) Anion Gap 9 (6-14) Blood Urea Nitrogen 12 mg/dL (7-20) Creatinine 0.7 mg/dL (0.6-1.0) Estimated GFR (Cockcroft-Gault) 84.5 BUN/Creatinine Ratio 17 (6-20) Glucose Level 135 mg/dL (70-99) H Calcium Level 9.1 mg/dL (8.5-10.1) Total Bilirubin 0.3 mg/dL (0.2-1.0) Aspartate Amino Transferase (AST) 12 U/L (15-37) L Alanine Aminotransferase (ALT) 15 U/L (14-59) Alkaline Phosphatase 300 U/L (46-116) H Total Protein 7.2 g/dL (6.4-8.2) Albumin 3.5 g/dL (3.4-5.0) Albumin/Globulin Ratio 0.9 (1.0-1.7) L Current Medications: I have reviewed the current psychotropics carefully including drug interactions. Risk benefit ratio favors no change other than as noted in my dictated progress note. Diagnosis: Problems: (1) Major depressive disorder, recurrent episode (2) Schizoaffective disorder, bipolar type (3) Impulse control disorder, unspecified (4) Anxiety disorder, unspecified (5) Bipolar disorder, current episode mixed, severe, with psychotic features (6) Mild cognitive impairment (7) Shortness of breath YOHANNES LITTLE MD Oct 30, 2019 22:09
[2019-10-31 06:09] VITALS: BP 121/69
[2019-10-31] MEDS: clonazePAM 1 MG TABLET PO SCH ×2 (08:54→19:59)
[2019-10-31] MEDS: ASPIRIN CHEWABLE 81 MG TABLET. PO SCH (08:54)
[2019-10-31] MEDS: DEXTROMETHORPHAN/QUINIDINE 20/10MG CAPSULE. PO SCH ×2 (08:54→20:00)
[2019-10-31] MEDS: MULTIVITAMIN with MINERAL TABLET. PO SCH (08:54)
[2019-10-31] MEDS: QUEtiapine 25 MG TABLET. PO SCH ×2 (08:55→13:27)
[2019-10-31] MEDS: ENOXAPARIN 40 MG/0.4 ML SYRINGE. SQ SCH (08:55)
[2019-10-31] MEDS: PROPRANOLOL 20 MG TABLET. PO SCH ×2 (08:55→20:03)
[2019-10-31] MEDS: LACTOBACILLUS RHAMNOSUS GG 1 CAPSULE. PO SCH ×2 (08:55→20:00)
[2019-10-31] MEDS: busPIRone 10 MG TABLET. PO SCH ×2 (08:55→19:59)
[2019-10-31] MEDS: clonazePAM 0.5 MG TABLET PO SCH (13:27)
[2019-10-31 15:47] VITALS: BP 157/80
[2019-10-31] MEDS: oxyCODONE IR 5 MG TABLET PO PRN ×2 (16:19→20:04)
[2019-10-31] MEDS: DIVALPROEX ER 500 MG TAB.ER.24H PO SCH (19:59)
[2019-10-31] MEDS: MELATONIN 3 MG TABLET PO SCH (19:59)
[2019-10-31] MEDS: traZODone 150 MG TABLET. PO SCH (19:59)
[2019-10-31] MEDS: ACETAMINOPHEN 325 MG TABLET PO PRN (20:03)
--- NOTE | 2019-10-31 21:06 | RAD ---
EXAM: AP and lateral views of the left tibia/fibula DATE: 10/31/2019 6:38 PM INDICATION: increased redness, pain COMPARISON: No Prior FINDINGS/ IMPRESSION: 1. IM nail fixation of the known tibial fracture is seen with associated callus formation/periosteal reaction suggesting progressive healing. 2. Progressively healing distal fibular fracture is also seen. 3. No definite erosive/destructive change to suggest osteomyelitis. 4. Diffuse soft tissue swelling about the left tibia/fibula. Electronically signed by: Donnie Peterson MD (10/31/2019 9:03 PM) TG
--- NOTE | 2019-10-31 22:33 | PDOC ---
Exam Note: John Note: Please also refer to the separate dictated note~for this date of service dictated separately.~Patient seen individually. Discussed the patient with Nursing staff reviewed the chart.~Reviewed interim history and current functioning. Reviewed vital signs,~Labs/ Radiology~and current medications noted below. Continue current treatment with the changes noted in the dictated addendum note Assessment: Vital Signs/I&O: Vital Signs Date Time Temp Pulse Resp B/P (MAP) Pulse Ox O2 Delivery O2 Flow Rate FiO2 10/31/19 21:24 98.2 95 10/31/19 20:03 69 157/80 10/31/19 17:30 16 Room Air I & O 10/30/19 10/30/19 10/31/19 15:00 23:00 07:00 Intake Total 480 ml 340 ml Balance 480 ml 340 ml Current Medications: I have reviewed the current psychotropics carefully including drug interactions. Risk benefit ratio favors no change other than as noted in my dictated progress note. Diagnosis: Problems: (1) Major depressive disorder, recurrent episode (2) Schizoaffective disorder, bipolar type (3) Impulse control disorder, unspecified (4) Anxiety disorder, unspecified (5) Bipolar disorder, current episode mixed, severe, with psychotic features (6) Mild cognitive impairment (7) Shortness of breath YOHANNES LITTLE MD Oct 31, 2019 22:33
[2019-11-01 06:01] VITALS: BP 138/80
--- NOTE | 2019-11-01 07:07 | PDOC ---
Exam Note: John Note: This note is a late entry for 10/30/2019 covers elements not covered in my initial note. Subjective: The patient was evaluated on telehealth rounds in the evening of 10/30/2019 with nursing staff. Per Corine MCGOWAN, she slept 7-3/4 hours previous night. She was up at 3 a.m. but no crying spells, less obsessive. Review of Systems: Ambulation impaired with walker. No CV, , pulmonary, eye system symptoms on review. Mental Status Exam: Reasonably oriented. She has been less obsessive, less repetitive about making phone calls. Abstraction fair. Computation impaired. Attention span short. Mood and affect withdrawn. Laboratory Data: Reviewed. Impression: Bipolar disorder mixed with psychotic features. Mild cognitive impairment. Anxiety disorder unspecified. Impulse control disorder unspecified. Plan: Continue rest unchanged. Assessment: Vital Signs/I&O: Vital Signs Date Time Temp Pulse Resp B/P (MAP) Pulse Ox O2 Delivery O2 Flow Rate FiO2 11/01/19 06:01 97.9 65 16 138/80 (99) 94 10/31/19 17:30 Room Air I & O 10/31/19 10/31/19 11/01/19 15:00 23:00 07:00 Intake Total 600 ml 360 ml Balance 600 ml 360 ml Current Medications: I have reviewed the current psychotropics carefully including drug interactions. Risk benefit ratio favors no change other than as noted in my dictated progress note. Diagnosis: Problems: (1) Major depressive disorder, recurrent episode (2) Schizoaffective disorder, bipolar type (3) Impulse control disorder, unspecified (4) Anxiety disorder, unspecified (5) Bipolar disorder, current episode mixed, severe, with psychotic features (6) Mild cognitive impairment (7) Shortness of breath YOHANNES LITTLE MD Nov 01, 2019 07:07
--- NOTE | 2019-11-01 07:16 | PDOC ---
Exam Note: John Note: This note is a late entry for 10/31/2019 covers elements not covered in my initial note. Subjective: The patient was evaluated on telehealth rounds in the evening of 10/31/2019 with [place], nursing staff. Per Cecil MCGOWAN, she slept 5-1/2 hours previous night. She did come out for a telephone call but less anxious, less obsessed. Mood swings are better. She has been somewhat anxious about the COVID situation on the unit. I processed with her. Review of Systems: Ambulation impaired with walker. No CV, , pulmonary, eye system symptoms on review. Mental Status Exam: Reasonably oriented. She is quite anxious as I met with her audiovisually. Abstraction fair. Computation impaired. Attention span short. Mood and affect withdrawn, anxious. Laboratory Data: Reviewed. Impression: Bipolar disorder mixed with psychotic features. Mild cognitive impairment. Anxiety disorder unspecified. Impulse control disorder unspecified. Plan: Continue rest unchanged. Assessment: Vital Signs/I&O: Vital Signs Date Time Temp Pulse Resp B/P (MAP) Pulse Ox O2 Delivery O2 Flow Rate FiO2 11/01/19 06:01 97.9 65 16 138/80 (99) 94 10/31/19 17:30 Room Air I & O 10/31/19 10/31/19 11/01/19 15:00 23:00 07:00 Intake Total 600 ml 360 ml Balance 600 ml 360 ml Current Medications: I have reviewed the current psychotropics carefully including drug interactions. Risk benefit ratio favors no change other than as noted in my dictated progress note. Diagnosis: Problems: (1) Major depressive disorder, recurrent episode (2) Schizoaffective disorder, bipolar type (3) Impulse control disorder, unspecified (4) Anxiety disorder, unspecified (5) Bipolar disorder, current episode mixed, severe, with psychotic features (6) Mild cognitive impairment (7) Shortness of breath YOHANNES LITTLE MD Nov 01, 2019 07:15
[2019-11-01] MEDS: ASPIRIN CHEWABLE 81 MG TABLET. PO SCH (08:40)
[2019-11-01] MEDS: busPIRone 10 MG TABLET. PO SCH ×2 (08:40→20:04)
[2019-11-01] MEDS: QUEtiapine 25 MG TABLET. PO SCH ×2 (08:40→12:38)
[2019-11-01] MEDS: LACTOBACILLUS RHAMNOSUS GG 1 CAPSULE. PO SCH ×2 (08:40→20:04)
[2019-11-01] MEDS: DEXTROMETHORPHAN/QUINIDINE 20/10MG CAPSULE. PO SCH ×2 (08:40→20:04)
[2019-11-01] MEDS: PROPRANOLOL 20 MG TABLET. PO SCH ×2 (08:40→20:05)
[2019-11-01] MEDS: MULTIVITAMIN with MINERAL TABLET. PO SCH (08:40)
[2019-11-01] MEDS: clonazePAM 1 MG TABLET PO SCH ×2 (08:40→20:05)
[2019-11-01] MEDS: ENOXAPARIN 40 MG/0.4 ML SYRINGE. SQ SCH (08:41)
[2019-11-01] MEDS: oxyCODONE IR 5 MG TABLET PO PRN ×3 (12:37→22:46)
[2019-11-01] MEDS: clonazePAM 0.5 MG TABLET PO SCH (12:37)
[2019-11-01 15:38] VITALS: BP 125/78
[2019-11-01] MEDS: DIVALPROEX ER 500 MG TAB.ER.24H PO SCH (20:04)
[2019-11-01] MEDS: MELATONIN 3 MG TABLET PO SCH (20:04)
[2019-11-01] MEDS: traZODone 150 MG TABLET. PO SCH (20:05)
--- NOTE | 2019-11-01 22:04 | PDOC ---
Exam Note: John Note: Please also refer to the separate dictated note~for this date of service dictated separately.~Patient seen individually. Discussed the patient with Nursing staff reviewed the chart.~Reviewed interim history and current functioning. Reviewed vital signs,~Labs/ Radiology~and current medications noted below. Continue current treatment with the changes noted in the dictated addendum note Assessment: Vital Signs/I&O: Vital Signs Date Time Temp Pulse Resp B/P (MAP) Pulse Ox O2 Delivery O2 Flow Rate FiO2 11/01/19 20:05 97 11/01/19 20:05 61 125/78 11/01/19 19:59 98.1 11/01/19 15:38 16 10/31/19 17:30 Room Air I & O 10/31/19 10/31/19 11/01/19 15:00 23:00 07:00 Intake Total 600 ml 360 ml Balance 600 ml 360 ml Current Medications: I have reviewed the current psychotropics carefully including drug interactions. Risk benefit ratio favors no change other than as noted in my dictated progress note. Diagnosis: Problems: (1) Major depressive disorder, recurrent episode (2) Schizoaffective disorder, bipolar type (3) Impulse control disorder, unspecified (4) Anxiety disorder, unspecified (5) Bipolar disorder, current episode mixed, severe, with psychotic features (6) Mild cognitive impairment (7) Shortness of breath YOHANNES LITLTE MD Nov 01, 2019 22:04
[2019-11-02] MEDS: traZODone 150 MG TABLET. PO PRN (01:22)
[2019-11-02] MEDS: oxyCODONE IR 5 MG TABLET PO PRN ×2 (06:00→19:23)
[2019-11-02 06:25] VITALS: BP 129/81
[2019-11-02] MEDS: busPIRone 10 MG TABLET. PO SCH ×2 (09:09→19:21)
[2019-11-02] MEDS: DEXTROMETHORPHAN/QUINIDINE 20/10MG CAPSULE. PO SCH ×2 (09:09→19:21)
[2019-11-02] MEDS: ASPIRIN CHEWABLE 81 MG TABLET. PO SCH (09:09)
[2019-11-02] MEDS: MULTIVITAMIN with MINERAL TABLET. PO SCH (09:09)
[2019-11-02] MEDS: ENOXAPARIN 40 MG/0.4 ML SYRINGE. SQ SCH (09:10)
[2019-11-02] MEDS: LACTOBACILLUS RHAMNOSUS GG 1 CAPSULE. PO SCH ×2 (09:10→19:22)
[2019-11-02] MEDS: clonazePAM 1 MG TABLET PO SCH ×2 (09:10→19:21)
[2019-11-02] MEDS: PROPRANOLOL 20 MG TABLET. PO SCH ×2 (09:10→19:22)
[2019-11-02] MEDS: QUEtiapine 25 MG TABLET. PO SCH ×2 (09:10→12:57)
[2019-11-02] MEDS: clonazePAM 0.5 MG TABLET PO SCH (12:57)
[2019-11-02 15:49] VITALS: BP 103/69
[2019-11-02 19:00] VITALS: BP 147/105
[2019-11-02] MEDS: traZODone 150 MG TABLET. PO SCH (19:21)
[2019-11-02] MEDS: MELATONIN 3 MG TABLET PO SCH (19:22)
[2019-11-02] MEDS: DIVALPROEX ER 500 MG TAB.ER.24H PO SCH (19:22)
--- NOTE | 2019-11-02 22:03 | PDOC ---
Exam Note: John Note: Please also refer to the separate dictated note~for this date of service dictated separately.~Patient seen individually. Discussed the patient with Nursing staff reviewed the chart.~Reviewed interim history and current functioning. Reviewed vital signs,~Labs/ Radiology~and current medications noted below. Continue current treatment with the changes noted in the dictated addendum note Assessment: Vital Signs/I&O: Vital Signs Date Time Temp Pulse Resp B/P (MAP) Pulse Ox O2 Delivery O2 Flow Rate FiO2 11/02/19 20:23 94 11/02/19 20:23 97.9 11/02/19 19:22 70 103/69 11/02/19 15:49 18 10/31/19 17:30 Room Air I & O 11/01/19 11/01/19 11/02/19 14:59 22:59 06:59 Intake Total 960 ml 200 ml Balance 960 ml 200 ml Current Medications: I have reviewed the current psychotropics carefully including drug interactions. Risk benefit ratio favors no change other than as noted in my dictated progress note. Diagnosis: Problems: (1) Major depressive disorder, recurrent episode (2) Schizoaffective disorder, bipolar type (3) Impulse control disorder, unspecified (4) Anxiety disorder, unspecified (5) Bipolar disorder, current episode mixed, severe, with psychotic features (6) Mild cognitive impairment (7) Shortness of breath YOHANNES LITTLE MD Nov 02, 2019 22:03
[2019-11-03] MEDS: traZODone 150 MG TABLET. PO PRN (00:50)
[2019-11-03 05:31] VITALS: BP 148/97
[2019-11-03] MEDS: ENOXAPARIN 40 MG/0.4 ML SYRINGE. SQ SCH (08:40)
[2019-11-03] MEDS: PROPRANOLOL 20 MG TABLET. PO SCH ×2 (08:41→19:38)
[2019-11-03] MEDS: clonazePAM 1 MG TABLET PO SCH ×2 (08:41→19:38)
[2019-11-03] MEDS: ASPIRIN CHEWABLE 81 MG TABLET. PO SCH (08:41)
[2019-11-03] MEDS: LACTOBACILLUS RHAMNOSUS GG 1 CAPSULE. PO SCH ×2 (08:41→19:37)
[2019-11-03] MEDS: busPIRone 10 MG TABLET. PO SCH ×2 (08:41→19:38)
[2019-11-03] MEDS: QUEtiapine 25 MG TABLET. PO SCH ×2 (08:41→12:27)
[2019-11-03] MEDS: MULTIVITAMIN with MINERAL TABLET. PO SCH (08:41)
[2019-11-03] MEDS: DEXTROMETHORPHAN/QUINIDINE 20/10MG CAPSULE. PO SCH ×2 (08:42→19:38)
[2019-11-03] MEDS: oxyCODONE IR 5 MG TABLET PO PRN ×2 (08:53→19:39)
--- NOTE | 2019-11-03 10:58 | TX PLAN ---
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 Other Contact Verified Code Status: Full Code Allergies: Coded Allergies: No Known Drug Allergies (Unverified , 10/12/19) Diagnoses Primary Diagnosis: Kicking staff, yelling, refusing to sit down, hit HEALTH INFORMATICS INSTRUCTOR in the head, insomnia, restless Reasons for Admission: Sig. Change Sleep, Combative, Poor impulse control Problem in Patient's Words: During her knee procedure, they stopped all of her psych meds and did not restart them. Bx contiue to increase. Pt guardian reports that pt has never been combative. Additional Admission Comments: According to the intake, pt is kicking at staff, yelling, refusing to sit down, hit HEALTH INFORMATICS INSTRUCTOR in the head, combative, uncooperative, restless, insomnia Problems Active Problems: restless labile mood (crying to laughing) attention-seeking Inactive Problems: Medication compliant Pt Strengths/Limitations Ability for Lucas: Poor Cognitive Functioning/Ability: Poor Communication Skills/Ability: Fair Financial Resources: Fair Insight/Judgement: Poor Intellectual Ability: Poor Physical Health: Poor Social Skills: Poor Stability in Family: Poor Stability in School/Work: Poor Verbal Skills: Poor Discharge Criteria Discharge Criteria: No need for close observ., Adequate arrangements @DC, Improved behavior, Improved mood/thought Preliminary Discharge Plan Preliminary DC Plan: Current Living Arrange. Special Precautions Fall Risk: Low Initial D/C Plan Pt will plan to return to [facility] once stable Identified Discharge Needs: Psychiatric care and potential need for counseling Currently Utilized Resources Currently Utilized Resources/P: PCP Identified Problems/Hx/Goals Objectives/Short-Term Goals Short Term Goals: Dec. Outbursts, Dec. Symp. Depression, Medication Stabilization, Promote Coping Skill Short Term Goals in Patient's: I just want to make sure I'm going home Interventions/Frequency Staff Interventions/Frequency&: Psychiatrist to asses pt atleast 3x per week Social work to assess pt at east 2x per week. Nursing to assess pt behavior, medications and complete 15 minute checks daily. Encourage participation in group activities or 1:1 engagement based off Activity Dept assessment and goals. 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 Pt attempts to staff split and needs redirection for that. Pt was somewhat lethargic and will have one medication decreased from 1mg to .05mg BID. Pt has two negative SWABS for Covoid and will return to [place] upon discharge. Pt still has periods of lability but appears to have decreased with the start of Luvox. SW will continue to work with pt guardian and the facility on when pt is able to get discharged. HILLARY HASSAN Nov 03, 2019 10:58
[2019-11-03 16:14] VITALS: BP 126/60
[2019-11-03] MEDS: DIVALPROEX ER 500 MG TAB.ER.24H PO SCH (19:37)
[2019-11-03] MEDS: MELATONIN 3 MG TABLET PO SCH (19:38)
[2019-11-03] MEDS: traZODone 150 MG TABLET. PO SCH (19:39)
--- NOTE | 2019-11-03 22:06 | PDOC ---
Exam Note: John Note: Please also refer to the separate dictated note~for this date of service dictated separately.~Patient seen individually. Discussed the patient with Nursing staff reviewed the chart.~Reviewed interim history and current functioning. Reviewed vital signs,~Labs/ Radiology~and current medications noted below. Continue current treatment with the changes noted in the dictated addendum note Assessment: Vital Signs/I&O: Vital Signs Date Time Temp Pulse Resp B/P (MAP) Pulse Ox O2 Delivery O2 Flow Rate FiO2 11/03/19 21:59 98.0 94 11/03/19 21:20 18 Room Air 11/03/19 19:38 75 126/60 I & O 11/02/19 11/02/19 11/03/19 15:00 23:00 07:00 Intake Total 960 ml 480 ml Balance 960 ml 480 ml Current Medications: I have reviewed the current psychotropics carefully including drug interactions. Risk benefit ratio favors no change other than as noted in my dictated progress note. Diagnosis: Problems: (1) Major depressive disorder, recurrent episode (2) Schizoaffective disorder, bipolar type (3) Impulse control disorder, unspecified (4) Anxiety disorder, unspecified (5) Bipolar disorder, current episode mixed, severe, with psychotic features (6) Mild cognitive impairment (7) Shortness of breath YOHANNES LITTLE MD Nov 03, 2019 22:06
[2019-11-04] MEDS: traZODone 150 MG TABLET. PO PRN (02:03)
[2019-11-04] MEDS: oxyCODONE IR 5 MG TABLET PO PRN ×4 (02:03→19:30)
[2019-11-04 06:08] VITALS: BP 142/84
--- NOTE | 2019-11-04 07:05 | PDOC ---
Exam Note: John Note: This note is a late entry for 11/01/2019 covers elements not covered in my initial note. Subjective: The patient was evaluated on telehealth rounds in the evening of 11/01/2019 with nursing staff. Per Sheri MCGOWAN, she slept 6-3/4 hours previous night. She is somewhat labile in her mood previous evening but better during the day on 10/31. She spends much time in her room. She has been tearful at times initially, koroma as I met with her, quickly brightened up for smiling. Review of Systems: Ambulation impaired with walker. No CV, , pulmonary, eye system symptoms on review. Mental Status Exam: Reasonably oriented. She is pleasant, verbal, interactive as I met with her audiovisually and smiling during the visit. Attention span short. Language function intact. Mood and affect withdrawn, anxious. No suic idal or homicidal ideation. Laboratory Data: Reviewed. Impression: Bipolar disorder mixed with psychotic features. Mild cognitive impairment. Anxiety disorder unspecified. Impulse control disorder unspecified. Plan: No change from initial note. Assessment: Vital Signs/I&O: Vital Signs Date Time Temp Pulse Resp B/P (MAP) Pulse Ox O2 Delivery O2 Flow Rate FiO2 11/04/19 06:08 97.6 64 18 142/84 (103) 96 Room Air I & O 0 11/03/19 11/03/19 11/04/19 15:00 23:00 07:00 Intake Total 720 ml 600 ml Balance 720 ml 600 ml Current Medications: I have reviewed the current psychotropics carefully including drug interactions. Risk benefit ratio favors no change other than as noted in my dictated progress note. Diagnosis: Problems: (1) Major depressive disorder, recurrent episode (2) Schizoaffective disorder, bipolar type (3) Impulse control disorder, unspecified (4) Anxiety disorder, unspecified (5) Bipolar disorder, current episode mixed, severe, with psychotic features (6) Mild cognitive impairment (7) Shortness of breath YOHANNES LITTLE MD Nov 04, 2019 07:05
--- NOTE | 2019-11-04 07:12 | PDOC ---
Exam Note: John Note: This note is a late entry for 11/02/2019 covers elements not covered in my initial note. Subjective: The patient was evaluated in the morning of 11/02/2019 with treatment team meeting with Woody (social service staff), Sheri MCGOWAN. Per Sheri RN, average sleeping 6 hours. Appetite is 55%. At times appetite is poor. She was frequently asking for pain meds all the time per nursing report, somewhat drowsy at times. We will monitor this and in fact reduce the Klonopin down from 2.5 mg to 2 mg a day for 3 days and then 1.5 mg thereafter. Review of Systems: Ambulation impaired with walker. No CV, , pulmonary, eye system symptoms on review. Mental Status Exam: Reasonably oriented. She is anxious, restless wanting to talk to her sister often forgets that she has talked to her sister. Abstraction fair. Computation impaired. Attention span short. Mood and affect anxious. Laboratory Data: Reviewed. Impression: Bipolar disorder mixed with psychotic features. Mild cognitive impairment. Anxiety disorder unspecified. Impulse control disorder unspecifie d. Plan: Continue rest unchanged. Per nursing report, somewhat drowsy at times. We will reduce the Klonopin down from 2.5 mg to 2 mg a day for 3 days and then 1.5 mg thereafter. Assessment: Vital Signs/I&O: Vital Signs Date Time Temp Pulse Resp B/P (MAP) Pulse Ox O2 Delivery O2 Flow Rate FiO2 11/04/19 06:08 97.6 64 18 142/84 (103) 96 Room Air I & O 11/03/19 11/03/19 11/04/19 15:00 23:00 07:00 Intake Total 720 ml 600 ml Balance 720 ml 600 ml Current Medications: I have reviewed the current psychotropics carefully including drug interactions. Risk benefit ratio favors no change other than as noted in my dictated progress note. Diagnosis: Problems: (1) Major depressive disorder, recurrent episode (2) Schizoaffective disorder, bipolar type (3) Impulse control disorder, unspecified (4) Anxiety disorder, unspecified (5) Bipolar disorder, current episode mixed, severe, with psychotic features (6) Mild cognitive impairment (7) Shortness of breath YOHANNES LITTLE MD Nov 04, 2019 07:12
--- NOTE | 2019-11-04 07:23 | PDOC ---
Exam Note: John Note: This note is a late entry for 11/03/2019 covers elements not covered in my initial note. Subjective: The patient was evaluated on telehealth rounds in the evening of 11/03/2019 with nursing staff. Per Sheri MCGOWAN, she slept 5-1/4 hours previous night despite trazodone x2 and Roxycodone previous night, drowsy during the day today. She did talk to her sister on the phone this morning but when I questioned her in the evening on telehealth rounds, she had forgotten this. She had even forgotten the content of the conversation. I did discuss with the nursing staff to put a calendar in her room and to put a dianne on the calendar on the day she talks to her sister which seems to relieve her but she has been more forgetful. Review of Systems: Ambulation impaired with walker. No CV, , pulmonary, eye system symptoms on review. Mental Status Exam: Reasonably oriented. She is quite anxious as I met with her audiovisually. Abstraction fair. Computation impaired. Attention span short. Mood and affect withdrawn, anxious. Laboratory Data: Reviewed. Impression: Bipolar disorder mixed with psychotic features. Mild cognitive impairment. Anxiety disorder unspecified. Impulse control disorder unspecified. Plan: No change from initial note. Assessment: Vital Signs/I&O: Vital Signs Date Time Temp Pulse Resp B/P (MAP) Pulse Ox O2 Delivery O2 Flow Rate FiO2 11/04/19 06:08 97.6 64 18 142/84 (103) 96 Room Air I & O 11/03/19 11/03/19 11/04/19 15:00 23:00 07:00 Intake Total 720 ml 600 ml Balance 720 ml 600 ml Current Medications: I have reviewed the current psychotropics carefully including drug interactions. Risk benefit ratio favors no change other than as noted in my dictated progress note. Diagnosis: Problems: (1) Major depressive disorder, recurrent episode (2) Schizoaffective disorder, bipolar type (3) Impulse control disorder, unspecified (4) Mild cognitive impairment (5) Shortness of breath (6) Anxiety disorder, unspecified (7) Bipolar disorder, current episode mixed, severe, with psychotic features YOHANNES LITTLE MD Nov 04, 2019 07:23
[2019-11-04] MEDS: MULTIVITAMIN with MINERAL TABLET. PO SCH (08:43)
[2019-11-04] MEDS: ASPIRIN CHEWABLE 81 MG TABLET. PO SCH (08:43)
[2019-11-04] MEDS: LACTOBACILLUS RHAMNOSUS GG 1 CAPSULE. PO SCH ×3 (08:43→20:47)
[2019-11-04] MEDS: QUEtiapine 25 MG TABLET. PO SCH ×2 (08:43→12:18)
[2019-11-04] MEDS: busPIRone 10 MG TABLET. PO SCH ×3 (08:43→20:47)
[2019-11-04] MEDS: ENOXAPARIN 40 MG/0.4 ML SYRINGE. SQ SCH (08:44)
[2019-11-04] MEDS: clonazePAM 1 MG TABLET PO SCH ×3 (08:45→20:47)
[2019-11-04] MEDS: DEXTROMETHORPHAN/QUINIDINE 20/10MG CAPSULE. PO SCH ×3 (08:45→20:48)
[2019-11-04] MEDS: PROPRANOLOL 20 MG TABLET. PO SCH ×2 (08:45→21:07)
[2019-11-04 16:53] VITALS: BP 84/57
[2019-11-04 18:30] LABS: BASO % 1 % (0-3); EOS # 0.2 x10^3/uL (0.0-0.7); EOS % 5 % (0-3); HEMATOCRIT 36.5 % (36.0-47.0); HEMOGLOBIN 12.4 g/dL (12.0-15.5); LYMPH # 1.3 x10^3/uL (1.0-4.8); LYMPH % 32 % (24-48); MEAN CORPUSCULAR HEMOGLOBIN 30 pg (25-35); MEAN CORPUSCULAR HGB CONC 34 g/dL (31-37); MEAN CORPUSCULAR VOLUME 90 fL (79-100); MONO # 0.6 x10^3/uL (0.0-1.1); MONO % 15 % (0-9); NEUT # 1.9 x10^3uL (1.8-7.7); NEUT % 48 % (31-73); PLATELET COUNT 238 x10^3/uL (140-400); RED BLOOD COUNT 4.08 x10^6/uL (3.50-5.40); RED CELL DISTRIBUTION WIDTH 13.8 % (11.5-14.5); WHITE BLOOD COUNT 4.1 x10^3/uL (4.0-11.0)
[2019-11-04 18:37] LABS: ALBUMIN 3.1 g/dL (3.4-5.0); CALCIUM 8.8 mg/dL (8.5-10.1); CREATININE 0.7 mg/dL (0.6-1.0); GFR 84.5; POTASSIUM 3.8 mmol/L (3.5-5.1); TOTAL BILIRUBIN 0.3 mg/dL (0.2-1.0); TOTAL PROTEIN 6.3 g/dL (6.4-8.2)
[2019-11-04] MEDS: traZODone 150 MG TABLET. PO SCH ×2 (19:30→20:47)
[2019-11-04] MEDS: DIVALPROEX ER 500 MG TAB.ER.24H PO SCH ×2 (19:31→20:47)
[2019-11-04] MEDS: MELATONIN 3 MG TABLET PO SCH ×2 (19:31→20:47)
[2019-11-04] MEDS: ACETAMINOPHEN 325 MG TABLET PO PRN (20:47)
--- NOTE | 2019-11-04 22:05 | PDOC ---
Exam Note: John Note: Please also refer to the separate dictated note~for this date of service dictated separately.~Patient seen individually. Discussed the patient with Nursing staff reviewed the chart.~Reviewed interim history and current functioning. Reviewed vital signs,~Labs/ Radiology~and current medications noted below. Continue current treatment with the changes noted in the dictated addendum note Assessment: Vital Signs/I&O: Vital Signs Date Time Temp Pulse Resp B/P (MAP) Pulse Ox O2 Delivery O2 Flow Rate FiO2 11/04/19 21:07 73 143/83 11/04/19 20:42 97.8 93 11/04/19 16:53 18 11/04/19 06:08 Room Air I & O 11/03/19 11/03/19 11/04/19 15:00 23:00 07:00 Intake Total 720 ml 600 ml Balance 720 ml 600 ml Labs: Laboratory Tests Test 11/04/19 18:10 White Blood Count 4.1 x10^3/uL (4.0-11.0) Red Blood Count 4.08 x10^6/uL (3.50-5.40) Hemoglobin 12.4 g/dL (12.0-15.5) Hematocrit 36.5 % (36.0-47.0) Mean Corpuscular Volume 90 fL (79-100) Mean Corpuscular Hemoglobin 30 pg (25-35) Mean Corpuscular Hemoglobin Concent 34 g/dL (31-37) Red Cell Distribution Width 13.8 % (11.5-14.5) Platelet Count 238 x10^3/uL (140-400) Neutrophils (%) (Auto) 48 % (31-73) Lymphocytes (%) (Auto) 32 % (24-48) Monocytes (%) (Auto) 15 % (0-9) H Eosinophils (%) (Auto) 5 % (0-3) H Basophils (%) (Auto) 1 % (0-3) Neutrophils # (Auto) 1.9 x10^3uL (1.8-7.7) Lymphocytes # (Auto) 1.3 x10^3/uL (1.0-4.8) Monocytes # (Auto) 0.6 x10^3/uL (0.0-1.1) Eosinophils # (Auto) 0.2 x10^3/uL (0.0-0.7) Basophils # (Auto) 0.0 x10^3/uL (0.0-0.2) Sodium Level 136 mmol/L (136-145) Potassium Level 3.8 mmol/L (3.5-5.1) Chloride Level 99 mmol/L (98-107) Carbon Dioxide Level 31 mmol/L (21-32) Anion Gap 6 (6-14) Blood Urea Nitrogen 12 mg/dL (7-20) Creatinine 0.7 mg/dL (0.6-1.0) Estimated GFR (Cockcroft-Gault) 84.5 BUN/Creatinine Ratio 17 (6-20) Glucose Level 134 mg/dL (70-99) H Calcium Level 8.8 mg/dL (8.5-10.1) Total Bilirubin 0.3 mg/dL (0.2-1.0) Aspartate Amino Transferase (AST) 10 U/L (15-37) L Alanine Aminotransferase (ALT) 13 U/L (14-59) L Alkaline Phosphatase 233 U/L (46-116) H Total Protein 6.3 g/dL (6.4-8.2) L Albumin 3.1 g/dL (3.4-5.0) L Albumin/Globulin Ratio 1.0 (1.0-1.7) Current Medications: I have reviewed the current psychotropics carefully including drug interactions. Risk benefit ratio favors no change other than as noted in my dictated progress note. Diagnosis: Problems: (1) Major depressive disorder, recurrent episode (2) Schizoaffective disorder, bipolar type (3) Impulse control disorder, unspecified (4) Anxiety disorder, unspecified (5) Bipolar disorder, current episode mixed, severe, with psychotic features (6) Mild cognitive impairment (7) Shortness of breath YOHANNES ILTTLE MD Nov 04, 2019 22:05
[2019-11-05] MEDS: oxyCODONE IR 5 MG TABLET PO PRN ×3 (04:07→20:03)
[2019-11-05 06:04] VITALS: BP 150/86
[2019-11-05] MEDS: PROPRANOLOL 20 MG TABLET. PO SCH ×2 (09:27→20:03)
[2019-11-05] MEDS: DEXTROMETHORPHAN/QUINIDINE 20/10MG CAPSULE. PO SCH ×2 (09:27→20:03)
[2019-11-05] MEDS: busPIRone 10 MG TABLET. PO SCH ×2 (09:27→20:03)
[2019-11-05] MEDS: ASPIRIN CHEWABLE 81 MG TABLET. PO SCH (09:27)
[2019-11-05] MEDS: LACTOBACILLUS RHAMNOSUS GG 1 CAPSULE. PO SCH ×2 (09:27→20:01)
[2019-11-05] MEDS: QUEtiapine 25 MG TABLET. PO SCH ×3 (09:28→13:00)
[2019-11-05] MEDS: ACETAMINOPHEN 325 MG TABLET PO PRN (09:28)
[2019-11-05] MEDS: ENOXAPARIN 40 MG/0.4 ML SYRINGE. SQ SCH (09:28)
[2019-11-05] MEDS: MULTIVITAMIN with MINERAL TABLET. PO SCH (09:28)
[2019-11-05] MEDS: CHOLECALCIFEROL (VITAMIN D3) 50,000 UNIT CAPSULE PO SCH (09:33)
[2019-11-05] MEDS: clonazePAM 1 MG TABLET PO SCH ×2 (09:33→20:03)
[2019-11-05 15:30] VITALS: BP 128/88
[2019-11-05 18:11] LABS: CALCIUM 9.1 mg/dL (8.5-10.1); CREATININE 0.7 mg/dL (0.6-1.0); GFR 84.5
[2019-11-05 18:17] LABS: ALBUMIN 3.3 g/dL (3.4-5.0); TOTAL BILIRUBIN 0.3 mg/dL (0.2-1.0); TOTAL PROTEIN 6.5 g/dL (6.4-8.2)
[2019-11-05 18:30] LABS: BASO % 1 % (0-3); EOS # 0.1 x10^3/uL (0.0-0.7); EOS % 3 % (0-3); HEMATOCRIT 42.6 % (36.0-47.0); HEMOGLOBIN 14.2 g/dL (12.0-15.5); LYMPH # 1.6 x10^3/uL (1.0-4.8); LYMPH % 34 % (24-48); MEAN CORPUSCULAR HEMOGLOBIN 30 pg (25-35); MEAN CORPUSCULAR HGB CONC 33 g/dL (31-37); MEAN CORPUSCULAR VOLUME 92 fL (79-100); MONO % 21 % (0-9); NEUT % 42 % (31-73); PLATELET COUNT 227 x10^3/uL (140-400); RED BLOOD COUNT 4.65 x10^6/uL (3.50-5.40); RED CELL DISTRIBUTION WIDTH 13.8 % (11.5-14.5); WHITE BLOOD COUNT 4.7 x10^3/uL (4.0-11.0)
[2019-11-05] MEDS: MELATONIN 3 MG TABLET PO SCH (20:02)
[2019-11-05] MEDS: DIVALPROEX ER 500 MG TAB.ER.24H PO SCH (20:02)
[2019-11-05] MEDS: traZODone 150 MG TABLET. PO SCH (20:02)
[2019-11-06 06:24] VITALS: BP 142/75
--- NOTE | 2019-11-06 07:19 | PDOC ---
Exam Note: John Note: This note is a late entry for 11/04/2019 covers elements not covered in my initial note. Subjective: The patient was evaluated on telehealth rounds in the evening of 11/04/2019 with Autumn MCGOWAN. 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 and has been quite sedated all day. We will check her labs CBC, CMP, possibly UA to make sure there is nothing else going on to confer her symptoms but perhaps it is the repair table operator trazodone. Review of Systems: Positive for tiredness. She was lying in bed which is where I met with her on telehealth rounds. Ambulation impaired with walker. No CV, , pulmonary, eye system symptoms on review. Mental Status Exam: Oriented to herself and situation. Speech has some latency, drifting off to sleep as we talked. Abstraction fair. Computation impaired. Language function intact. Mood and affect withdrawn. Laboratory Data: Reviewed. Impression: Bipolar disorder mixed with psychotic features. Mild cognitive impairment. Anxiety disorder unspecified. Impulse control disorder unspecified. Plan: No change from initial note. We will try and hold the morning trazodone and check labs as noted. Reduce other psychotropics if nothing else to explain her sedation and if this persist despite trazodone running out of her system, we will make further adjustments as clinically indicated. Assessment: Vital Signs/I&O: Vital Signs Date Time Temp Pulse Resp B/P (MAP) Pulse Ox O2 Delivery O2 Flow Rate FiO2 11/06/19 06:24 97.8 71 18 142/75 (97) 97 11/05/19 15:30 Room Air I & O 11/05/19 11/05/19 11/06/19 15:00 23:00 07:00 Intake Total 340 ml 130 ml Balance 340 ml 130 ml Labs: Laboratory Tests Test 11/05/19 17:11 11/05/19 18:21 Sodium Level 136 mmol/L (136-145) Potassium Level 4.0 mmol/L (3.5-5.1) Chloride Level 99 mmol/L (98-107) Carbon Dioxide Level 31 mmol/L (21-32) Anion Gap 6 (6-14) Blood Urea Nitrogen 11 mg/dL (7-20) Creatinine 0.7 mg/dL (0.6-1.0) Estimated GFR (Cockcroft-Gault) 84.5 BUN/Creatinine Ratio 16 (6-20) Glucose Level 100 mg/dL (70-99) H Calcium Level 9.1 mg/dL (8.5-10.1) Total Bilirubin 0.3 mg/dL (0.2-1.0) Aspartate Amino Transferase (AST) 11 U/L (15-37) L Alanine Aminotransferase (ALT) 14 U/L (14-59) Alkaline Phosphatase 237 U/L (46-116) H Ammonia 23 mcmol/L (11-34) Total Protein 6.5 g/dL (6.4-8.2) Albumin 3.3 g/dL (3.4-5.0) L Albumin/Globulin Ratio 1.0 (1.0-1.7) White Blood Count 4.7 x10^3/uL (4.0-11.0) Red Blood Count 4.65 x10^6/uL (3.50-5.40) Hemoglobin 14.2 g/dL (12.0-15.5) Hematocrit 42.6 % (36.0-47.0) Mean Corpuscular Volume 92 fL (79-100) Mean Corpuscular Hemoglobin 30 pg (25-35) Mean Corpuscular Hemoglobin Concent 33 g/dL (31-37) Red Cell Distribution Width 13.8 % (11.5-14.5) Platelet Count 227 x10^3/uL (140-400) Neutrophils (%) (Auto) 42 % (31-73) Lymphocytes (%) (Auto) 34 % (24-48) Monocytes (%) (Auto) 21 % (0-9) H Eosinophils (%) (Auto) 3 % (0-3) Basophils (%) (Auto) 1 % (0-3) Neutrophils # (Auto) 2.0 x10^3uL (1.8-7.7) Lymphocytes # (Auto) 1.6 x10^3/uL (1.0-4.8) Monocytes # (Auto) 1.0 x10^3/uL (0.0-1.1) Eosinophils # (Auto) 0.1 x10^3/uL (0.0-0.7) Basophils # (Auto) 0.0 x10^3/uL (0.0-0.2) Current Medications: I have reviewed the current psychotropics carefully including drug interactions. Risk benefit ratio favors no change other than as noted in my dictated progress note. Diagnosis: Problems: (1) Major depressive disorder, recurrent episode (2) Schizoaffective disorder, bipolar type (3) Impulse control disorder, unspecified (4) Anxiety disorder, unspecified (5) Bipolar disorder, current episode mixed, severe, with psychotic features (6) Mild cognitive impairment (7) Shortness of breath YOHANNES LITTLE MD Nov 06, 2019 07:19
--- NOTE | 2019-11-06 07:20 | PDOC ---
Exam Note: John Note: This is a late entry for DOS 11/05/19. Please also refer to the separate dictated note~for this date of service dictated separately.~Patient seen individually. Discussed the patient with Nursing staff reviewed the chart.~Reviewed interim history and current functioning. Reviewed vital signs,~Labs/ Radiology~and current medications noted below. Continue current treatment with the changes noted in the dictated addendum note Assessment: Vital Signs/I&O: Vital Signs Date Time Temp Pulse Resp B/P (MAP) Pulse Ox O2 Delivery O2 Flow Rate FiO2 11/06/19 06:24 97.8 71 18 142/75 (97) 97 11/05/19 15:30 Room Air I & O 11/05/19 11/05/19 11/06/19 15:00 23:00 07:00 Intake Total 340 ml 130 ml Balance 340 ml 130 ml Labs: Laboratory Tests Test 11/05/19 17:11 11/05/19 18:21 Sodium Level 136 mmol/L (136-145) Potassium Level 4.0 mmol/L (3.5-5.1) Chloride Level 99 mmol/L (98-107) Carbon Dioxide Level 31 mmol/L (21-32) Anion Gap 6 (6-14) Blood Urea Nitrogen 11 mg/dL (7-20) Creatinine 0.7 mg/dL (0.6-1.0) Estimated GFR (Cockcroft-Gault) 84.5 BUN/Creatinine Ratio 16 (6-20) Glucose Level 100 mg/dL (70-99) H Calcium Level 9.1 mg/dL (8.5-10.1) Total Bilirubin 0.3 mg/dL (0.2-1.0) Aspartate Amino Transferase (AST) 11 U/L (15-37) L Alanine Aminotransferase (ALT) 14 U/L (14-59) Alkaline Phosphatase 237 U/L (46-116) H Ammonia 23 mcmol/L (11-34) Total Protein 6.5 g/dL (6.4-8.2) Albumin 3.3 g/dL (3.4-5.0) L Albumin/Globulin Ratio 1.0 (1.0-1.7) White Blood Count 4.7 x10^3/uL (4.0-11.0) Red Blood Count 4.65 x10^6/uL (3.50-5.40) Hemoglobin 14.2 g/dL (12.0-15.5) Hematocrit 42.6 % (36.0-47.0) Mean Corpuscular Volume 92 fL (79-100) Mean Corpuscular Hemoglobin 30 pg (25-35) Mean Corpuscular Hemoglobin Concent 33 g/dL (31-37) Red Cell Distribution Width 13.8 % (11.5-14.5) Platelet Count 227 x10^3/uL (140-400) Neutrophils (%) (Auto) 42 % (31-73) Lymphocytes (%) (Auto) 34 % (24-48) Monocytes (%) (Auto) 21 % (0-9) H Eosinophils (%) (Auto) 3 % (0-3) Basophils (%) (Auto) 1 % (0-3) Neutrophils # (Auto) 2.0 x10^3uL (1.8-7.7) Lymphocytes # (Auto) 1.6 x10^3/uL (1.0-4.8) Monocytes # (Auto) 1.0 x10^3/uL (0.0-1.1) Eosinophils # (Auto) 0.1 x10^3/uL (0.0-0.7) Basophils # (Auto) 0.0 x10^3/uL (0.0-0.2) Current Medications: I have reviewed the current psychotropics carefully including drug interactions. Risk benefit ratio favors no change other than as noted in my dictated progress note. Diagnosis: Problems: (1) Major depressive disorder, recurrent episode (2) Schizoaffective disorder, bipolar type (3) Impulse control disorder, unspecified (4) Anxiety disorder, unspecified (5) Bipolar disorder, current episode mixed, severe, with psychotic features (6) Mild cognitive impairment (7) Shortness of breath YOHANNES LITTLE MD Nov 06, 2019 07:20
[2019-11-06] MEDS: DEXTROMETHORPHAN/QUINIDINE 20/10MG CAPSULE. PO SCH ×2 (07:52→21:31)
[2019-11-06] MEDS: MULTIVITAMIN with MINERAL TABLET. PO SCH (07:52)
[2019-11-06] MEDS: PROPRANOLOL 20 MG TABLET. PO SCH ×2 (07:52→21:30)
[2019-11-06] MEDS: ASPIRIN CHEWABLE 81 MG TABLET. PO SCH (07:53)
[2019-11-06] MEDS: clonazePAM 0.5 MG TABLET PO SCH (07:53)
[2019-11-06] MEDS: oxyCODONE IR 5 MG TABLET PO PRN ×4 (07:53→21:32)
[2019-11-06] MEDS: LACTOBACILLUS RHAMNOSUS GG 1 CAPSULE. PO SCH ×2 (07:53→21:28)
[2019-11-06] MEDS: busPIRone 10 MG TABLET. PO SCH ×2 (07:53→21:27)
[2019-11-06] MEDS: ENOXAPARIN 40 MG/0.4 ML SYRINGE. SQ SCH (07:54)
[2019-11-06 15:35] VITALS: BP 169/79
[2019-11-06] MEDS: DIVALPROEX ER 500 MG TAB.ER.24H PO SCH (21:29)
[2019-11-06] MEDS: traZODone 150 MG TABLET. PO SCH (21:29)
[2019-11-06] MEDS: MELATONIN 3 MG TABLET PO SCH (21:30)
[2019-11-06] MEDS: clonazePAM 1 MG TABLET PO SCH (21:31)
--- NOTE | 2019-11-06 21:58 | PDOC ---
Exam Note: John Note: Please also refer to the separate dictated note~for this date of service dictated separately.~Patient seen individually. Discussed the patient with Nursing staff reviewed the chart.~Reviewed interim history and current functioning. Reviewed vital signs,~Labs/ Radiology~and current medications noted below. Continue current treatment with the changes noted in the dictated addendum note Assessment: Vital Signs/I&O: Vital Signs Date Time Temp Pulse Resp B/P (MAP) Pulse Ox O2 Delivery O2 Flow Rate FiO2 11/06/19 21:30 72 169/79 11/06/19 20:00 97.3 11/06/19 19:13 16 97 Room Air I & O 11/05/19 11/05/19 11/06/19 15:00 23:00 07:00 Intake Total 340 ml 130 ml Balance 340 ml 130 ml Current Medications: Meds: Current Medications Medications (Trade) Dose Ordered Sig/Yuki Route PRN Reason Start Time Stop Time Status Last Admin Dose Admin Clonazepam (KlonoPIN) 0.5 mg DAILY PO 11/06/19 09:00 11/06/19 07:53 Clonazepam (KlonoPIN) 1 mg QHS PO 11/06/19 21:00 11/06/19 21:31 I have reviewed the current psychotropics carefully including drug interactions. Risk benefit ratio favors no change other than as noted in my dictated progress note. Diagnosis: Problems: (1) Major depressive disorder, recurrent episode (2) Schizoaffective disorder, bipolar type (3) Impulse control disorder, unspecified (4) Anxiety disorder, unspecified (5) Bipolar disorder, current episode mixed, severe, with psychotic features (6) Mild cognitive impairment (7) Shortness of breath YOHANNES LITTLE MD Nov 06, 2019 21:58
[2019-11-07 06:08] VITALS: BP 144/83
[2019-11-07] MEDS: busPIRone 10 MG TABLET. PO SCH ×2 (09:17→20:06)
[2019-11-07] MEDS: LACTOBACILLUS RHAMNOSUS GG 1 CAPSULE. PO SCH ×2 (09:17→20:06)
[2019-11-07] MEDS: MULTIVITAMIN with MINERAL TABLET. PO SCH (09:17)
[2019-11-07] MEDS: ASPIRIN CHEWABLE 81 MG TABLET. PO SCH (09:18)
[2019-11-07] MEDS: DEXTROMETHORPHAN/QUINIDINE 20/10MG CAPSULE. PO SCH ×2 (09:18→20:13)
[2019-11-07] MEDS: ENOXAPARIN 40 MG/0.4 ML SYRINGE. SQ SCH (09:18)
[2019-11-07] MEDS: PROPRANOLOL 20 MG TABLET. PO SCH ×2 (09:18→20:13)
[2019-11-07] MEDS: clonazePAM 0.5 MG TABLET PO SCH (09:18)
[2019-11-07] MEDS: oxyCODONE IR 5 MG TABLET PO PRN ×2 (09:58→20:14)
[2019-11-07 15:25] VITALS: BP 149/84
[2019-11-07] MEDS: traZODone 150 MG TABLET. PO SCH (20:05)
[2019-11-07] MEDS: clonazePAM 1 MG TABLET PO SCH (20:06)
[2019-11-07] MEDS: DIVALPROEX ER 500 MG TAB.ER.24H PO SCH (20:06)
[2019-11-07] MEDS: MELATONIN 3 MG TABLET PO SCH (20:14)
--- NOTE | 2019-11-07 22:02 | PDOC ---
Exam Note: John Note: Please also refer to the separate dictated note~for this date of service dictated separately.~Patient seen individually. Discussed the patient with Nursing staff reviewed the chart.~Reviewed interim history and current functioning. Reviewed vital signs,~Labs/ Radiology~and current medications noted below. Continue current treatment with the changes noted in the dictated addendum note Assessment: Vital Signs/I&O: Vital Signs Date Time Temp Pulse Resp B/P (MAP) Pulse Ox O2 Delivery O2 Flow Rate FiO2 11/07/19 21:30 Room Air 11/07/19 20:14 20 95 11/07/19 20:13 79 140/82 11/07/19 19:46 97.4 I & O 11/06/19 11/06/19 11/07/19 15:00 23:00 07:00 Intake Total 480 ml 320 ml Balance 480 ml 320 ml Current Medications: I have reviewed the current psychotropics carefully including drug interactions. Risk benefit ratio favors no change other than as noted in my dictated progress note. Diagnosis: Problems: (1) Major depressive disorder, recurrent episode (2) Schizoaffective disorder, bipolar type (3) Impulse control disorder, unspecified (4) Anxiety disorder, unspecified (5) Bipolar disorder, current episode mixed, severe, with psychotic features (6) Mild cognitive impairment (7) Shortness of breath YOHANNES LITTLE MD Nov 07, 2019 22:02
[2019-11-08 05:17] VITALS: BP 138/69
--- NOTE | 2019-11-08 06:59 | PDOC ---
Exam Note: John Note: This note is a late entry for 11/05/2019 covers elements not covered in my initial note. Subjective: The patient was evaluated on telehealth rounds in the evening of 11/05/2019 with nursing staff. Per Corine MCGOWAN, she slept 4-1/4 hours previous night. In the morning she was smiling, somewhat sedated in the evening. She is on Depakote. We will check her ammonia level to make sure this is not elevated causing her sedation which has been a problem for the past 2 or 3 weeks. Review of Systems: Ambulation impaired with walker. No CV, , pulmonary, eye system symptoms on review. Somewhat sedated individually. Mental Status Exam: Oriented to herself and situation. Speech has some la tency, coherent. Abstraction fair. Computation impaired. Language function intact. Attention span short. Mood and affect somewhat anxious at times, labile. Laboratory Data: Reviewed. Impression: Bipolar disorder mixed with psychotic features. Mild cognitive impairment. Anxiety disorder unspecified. Impulse control disorder unspecified. Plan: No change from initial note. We will check ammonia level in the morning. Continue rest of the psychotropics. Assessment: Vital Signs/I&O: Vital Signs Date Time Temp Pulse Resp B/P (MAP) Pulse Ox O2 Delivery O2 Flow Rate FiO2 11/08/19 05:17 97.7 72 20 138/69 (92) 95 Room Air I & O 11/07/19 11/07/19 11/08/19 15:00 23:00 07:00 Intake Total 540 ml 580 ml Balance 540 ml 580 ml Current Medications: I have reviewed the current psychotropics carefully including drug interactions. Risk benefit ratio favors no change other than as noted in my dictated progress note. Diagnosis: Problems: (1) Major depressive disorder, recurrent episode (2) Schizoaffective disorder, bipolar type (3) Impulse control disorder, unspecified (4) Anxiety disorder, unspecified (5) Bipolar disorder, current episode mixed, severe, with psychotic features (6) Mild cognitive impairment (7) Shortness of breath YOHANNES LITTLE MD Nov 08, 2019 06:59
--- NOTE | 2019-11-08 07:12 | PDOC ---
Exam Note: John Note: This note is a late entry for 11/06/2019 covers elements not covered in my initial note. Subjective: The patient was evaluated on telehealth rounds in the evening of 11/06/2019 with nursing staff. Per Cecil MCGOWAN, she slept 6 hours previous night. She has been less sedated, more awake. She does complain of leg hurting, left lower extremity as a red area, will defer to Dr. Noriega. Ammonia level is non- contributory at 23. Review of Systems: Ambulation impaired with walker. No CV, , pulmonary, eye system symptoms on review. Mental Status Exam: Oriented to herself and situation. She is pleasant, verbal, smiling. Speech is coherent. Abstraction fair. Computation impaired. Language function intact. Attention span short. Mood and affect labile. Short-term memory remains impaired. Laboratory Data: Reviewed. Impression: Bipolar disorder mixed with psychotic features. Mild cognitive impairment. Anxiety disorder unspecified. Impulse control disorder unspecified. Plan: No change from initial note. Assessment: Vital Signs/I&O: Vital Signs Date Time Temp Pulse Resp B/P (MAP) Pulse Ox O2 Delivery O2 Flow Rate FiO2 11/08/19 05:17 97.7 72 20 138/69 (92) 95 Room Air I & O 11/07/19 11/07/19 11/08/19 15:00 23:00 07:00 Intake Total 540 ml 580 ml Balance 540 ml 580 ml Current Medications: I have reviewed the current psychotropics carefully including drug interactions. Risk benefit ratio favors no change other than as noted in my dictated progress note. Diagnosis: Problems: (1) Major depressive disorder, recurrent episode (2) Schizoaffective disorder, bipolar type (3) Impulse control disorder, unspecified (4) Anxiety disorder, unspecified (5) Bipolar disorder, current episode mixed, severe, with psychotic features (6) Mild cognitive impairment (7) Shortness of breath YOHANNES LITTLE MD Nov 08, 2019 07:12
--- NOTE | 2019-11-08 07:25 | PDOC ---
Exam Note: John Note: This note is a late entry for 11/07/2019 covers elements not covered in my initial note. Subjective: The patient was evaluated on telehealth rounds in the evening of 11/07/2019 with Torrie MCGOWAN. Per Sheri MCGOWAN, she slept 4-1/2 hours previous night. She has been attention seeking per nursing staff, med seeking, obsessive regarding her medications. She was up at the nursing station 8 times by 8 a.m. wanting something or the other. I processed this with her. She was quite sad, tearful with mood lability as I met with her initially but towards the end of the visit pleasant, smiling. Review of Systems: Ambulation impaired with walker. No CV, , pulmonary, eye system symptoms on review. Mental Status Exam: Oriented to herself and situation. Speech coherent, has some latency. Abstraction fair. Computation impaired. Attention span is short. Language function intact. Mood and affect labile, withdrawn. Laboratory Data: Reviewed. Impression: Bipolar disorder mixed with psychotic features. Mild cognitive impairment. Anxiety disorder unspecified. Impulse control disorder unspecified. Plan: No change from initial note. The patient is currently on Ativan 0.5 mg a.m. and 1 mg h.s. In 2 days we will stop the morning Ativan. Maintain Depakote ER 1000 mg h.s., melatonin 6 mg h.s., Nuedexta 20/10 mg b.i.d., Seroquel 25 mg b.i.d., Trileptal 300 mg b.i.d., trazodone 150 mg h.s. p.r.n. may repeat x1, Luvox 50 mg a day, BuSpar 10 mg b.i.d. Adjust further as clinically indicated. Assessment: Vital Signs/I&O: Vital Signs Date Time Temp Pulse Resp B/P (MAP) Pulse Ox O2 Delivery O2 Flow Rate FiO2 11/08/19 05:17 97.7 72 20 138/69 (92) 95 Room Air I & O 11/07/19 11/07/19 11/08/19 15:00 23:00 07:00 Intake Total 540 ml 580 ml Balance 540 ml 580 ml Current Medications: I have reviewed the current psychotropics carefully including drug interactions. Risk benefit ratio favors no change other than as noted in my dictated progress note. Diagnosis: Problems: (1) Major depressive disorder, recurrent episode (2) Schizoaffective disorder, bipolar type (3) Impulse control disorder, unspecified (4) Anxiety disorder, unspecified (5) Bipolar disorder, current episode mixed, severe, with psychotic features (6) Mild cognitive impairment (7) Shortness of breath YOHANNES LITTLE MD Nov 08, 2019 07:25
[2019-11-08] MEDS: MULTIVITAMIN with MINERAL TABLET. PO SCH (09:11)
[2019-11-08] MEDS: busPIRone 10 MG TABLET. PO SCH ×2 (09:11→20:56)
[2019-11-08] MEDS: ENOXAPARIN 40 MG/0.4 ML SYRINGE. SQ SCH (09:11)
[2019-11-08] MEDS: LACTOBACILLUS RHAMNOSUS GG 1 CAPSULE. PO SCH ×2 (09:11→20:55)
[2019-11-08] MEDS: ASPIRIN CHEWABLE 81 MG TABLET. PO SCH (09:11)
[2019-11-08] MEDS: PROPRANOLOL 20 MG TABLET. PO SCH ×2 (09:12→20:56)
[2019-11-08] MEDS: DEXTROMETHORPHAN/QUINIDINE 20/10MG CAPSULE. PO SCH ×3 (09:13→23:32)
[2019-11-08] MEDS: clonazePAM 0.5 MG TABLET PO SCH (09:14)
[2019-11-08 15:34] VITALS: BP 163/80
[2019-11-08] MEDS: traZODone 150 MG TABLET. PO SCH (20:55)
[2019-11-08] MEDS: DIVALPROEX ER 500 MG TAB.ER.24H PO SCH (20:56)
[2019-11-08] MEDS: clonazePAM 1 MG TABLET PO SCH (20:56)
[2019-11-08] MEDS: MELATONIN 3 MG TABLET PO SCH (20:56)
--- NOTE | 2019-11-08 22:02 | PDOC ---
Exam Note: John Note: Please also refer to the separate dictated note~for this date of service dictated separately.~Patient seen individually. Discussed the patient with Nursing staff reviewed the chart.~Reviewed interim history and current functioning. Reviewed vital signs,~Labs/ Radiology~and current medications noted below. Continue current treatment with the changes noted in the dictated addendum note Assessment: Vital Signs/I&O: Vital Signs Date Time Temp Pulse Resp B/P (MAP) Pulse Ox O2 Delivery O2 Flow Rate FiO2 11/08/19 20:56 79 163/80 11/08/19 20:39 98.1 95 11/08/19 15:34 16 11/08/19 05:17 Room Air I & O 11/07/19 11/07/19 11/08/19 15:00 23:00 07:00 Intake Total 540 ml 580 ml Balance 540 ml 580 ml Current Medications: I have reviewed the current psychotropics carefully including drug interactions. Risk benefit ratio favors no change other than as noted in my dictated progress note. Diagnosis: Problems: (1) Major depressive disorder, recurrent episode (2) Schizoaffective disorder, bipolar type (3) Impulse control disorder, unspecified (4) Anxiety disorder, unspecified (5) Bipolar disorder, current episode mixed, severe, with psychotic features (6) Mild cognitive impairment (7) Shortness of breath YOHANNES LITTLE MD Nov 08, 2019 22:02
[2019-11-08] MEDS: traZODone 150 MG TABLET. PO PRN (23:32)
[2019-11-09 05:05] VITALS: BP 140/86
[2019-11-09] MEDS: DEXTROMETHORPHAN/QUINIDINE 20/10MG CAPSULE. PO SCH ×2 (07:59→19:15)
[2019-11-09] MEDS: ENOXAPARIN 40 MG/0.4 ML SYRINGE. SQ SCH (07:59)
[2019-11-09] MEDS: ASPIRIN CHEWABLE 81 MG TABLET. PO SCH (08:00)
[2019-11-09] MEDS: busPIRone 10 MG TABLET. PO SCH ×2 (08:00→19:15)
[2019-11-09] MEDS: PROPRANOLOL 20 MG TABLET. PO SCH ×2 (08:00→19:15)
[2019-11-09] MEDS: LACTOBACILLUS RHAMNOSUS GG 1 CAPSULE. PO SCH ×2 (08:00→19:14)
[2019-11-09] MEDS: clonazePAM 0.5 MG TABLET PO SCH (08:00)
[2019-11-09] MEDS: MULTIVITAMIN with MINERAL TABLET. PO SCH (08:00)
[2019-11-09 15:17] VITALS: BP 129/83
[2019-11-09] MEDS ORDERED: KETOCONAZOLE 2% SHAMPOO 120ML BOTTLE. TP PRN (17:30)
[2019-11-09] MEDS: DIVALPROEX ER 500 MG TAB.ER.24H PO SCH (19:14)
[2019-11-09] MEDS: clonazePAM 1 MG TABLET PO SCH (19:14)
[2019-11-09] MEDS: MELATONIN 3 MG TABLET PO SCH (19:15)
[2019-11-09] MEDS: traZODone 150 MG TABLET. PO SCH (19:15)
--- NOTE | 2019-11-09 21:58 | PDOC ---
Exam Note: John Note: Please also refer to the separate dictated note~for this date of service dictated separately.~Patient seen individually. Discussed the patient with Nursing staff reviewed the chart.~Reviewed interim history and current functioning. Reviewed vital signs,~Labs/ Radiology~and current medications noted below. Continue current treatment with the changes noted in the dictated addendum note Assessment: Vital Signs/I&O: Vital Signs Date Time Temp Pulse Resp B/P (MAP) Pulse Ox O2 Delivery O2 Flow Rate FiO2 11/09/19 20:27 97.9 97 11/09/19 19:15 86 129/83 11/09/19 15:17 20 Room Air I & O 11/08/19 11/08/19 11/09/19 15:00 23:00 07:00 Intake Total 240 ml 120 ml Balance 240 ml 120 ml Current Medications: I have reviewed the current psychotropics carefully including drug interactions. Risk benefit ratio favors no change other than as noted in my dictated progress note. Diagnosis: Problems: (1) Major depressive disorder, recurrent episode (2) Schizoaffective disorder, bipolar type (3) Impulse control disorder, unspecified (4) Anxiety disorder, unspecified (5) Bipolar disorder, current episode mixed, severe, with psychotic features (6) Mild cognitive impairment (7) Shortness of breath YOHANNES LITTLE MD Nov 09, 2019 21:58
[2019-11-10 05:52] VITALS: BP 163/86
[2019-11-10] MEDS: ACETAMINOPHEN 325 MG TABLET PO PRN (06:34)
--- NOTE | 2019-11-10 07:10 | PDOC ---
Exam Note: John Note: This note is a late entry for 11/08/2019 covers elements not covered in my initial note. Subjective: The patient was evaluated on telehealth rounds in the evening of 11/08/2019 with nursing staff. Per Sheri MCGOWAN, she slept 6-1/2 hours previous night. She remains anxious, restless constantly up to the nursing station with request. She was tearful at times stating she missed one of the female nursing staff, attention seeking at times, refused to wear her mask. She had a telephone call with her sister. Review of Systems: Ambulation impaired with walker. No CV, , pulmonary, eye system symptoms on review. Mental Status Exam: Oriented to herself and situation. Speech coherent, has some latency. She is pleasant, verbal, smiling, at times a little inappropriate within reason. No suicidal or homicidal ideation. Intellect is average. Insight is somewhat limited. Judgment intact to standard questioning. Laboratory Data: Reviewed. Impression: Bipolar disorder mixed with psychotic features. Mild cognitive impairment. Anxiety disorder unspecified. Impulse control disorder unspecified. Plan: No change from initial note. Assessment: Vital Signs/I&O: Vital Signs Date Time Temp Pulse Resp B/P (MAP) Pulse Ox O2 Delivery O2 Flow Rate FiO2 11/10/19 05:52 97.6 72 20 163/86 (111) 96 11/09/19 15:17 Room Air I & O 11/09/19 11/09/19 11/10/19 15:00 23:00 07:00 Intake Total 600 ml 120 ml Balance 600 ml 120 ml Current Medications: I have reviewed the current psychotropics carefully including drug interactions. Risk benefit ratio favors no change other than as noted in my dictated progress note. Diagnosis: Problems: (1) Major depressive disorder, recurrent episode (2) Schizoaffective disorder, bipolar type (3) Impulse control disorder, unspecified (4) Anxiety disorder, unspecified (5) Bipolar disorder, current episode mixed, severe, with psychotic features (6) Mild cognitive impairment (7) Shortness of breath YOHANNES LITTLE MD Nov 10, 2019 07:10
--- NOTE | 2019-11-10 07:20 | PDOC ---
Exam Note: John Note: This note is a late entry for 11/09/2019 covers elements not covered in my initial note. Subjective: The patient was evaluated on telehealth rounds in the evening of 11/09/2019 with nursing staff. Per Larry MCGOWAN, she slept 5-3/4 hours previous night. She has 85% appetite. She is frequently up to the nursing station all the time. A room has been moved close to the nursing station. This should assist. Review of Systems: Ambulation impaired with walker. No CV, , pulmonary, eye system symptoms on review. Mental Status Exam: Oriented to herself and situation. Speech coherent, has some latency. Abstraction fair. Computation impaired. Language function intact. Attention span short. Mood and affect improved, less labile. Laboratory Data: Reviewed. Impression: Bipolar disorder mixed with psychotic features. Mild cognitive impairment. Anxiety disorder unspecified. Impulse control disorder unspecified. Plan: We have been tapering the Klonopin. Continue rest of the psychotropics including Luvox, Trileptal, BuSpar, trazodone, Nuedexta, Depakote ER 1000 mg h.s., melatonin 6 mg h.s. Rest unchanged for now. Assessment: Vital Signs/I&O: Vital Signs Date Time Temp Pulse Resp B/P (MAP) Pulse Ox O2 Delivery O2 Flow Rate FiO2 11/10/19 05:52 97.6 72 20 163/86 (111) 96 11/09/19 15:17 Room Air I & O 11/09/19 11/09/19 11/10/19 15:00 23:00 07:00 Intake Total 600 ml 120 ml Balance 600 ml 120 ml Current Medications: I have reviewed the current psychotropics carefully including drug interactions. Risk benefit ratio favors no change other than as noted in my dictated progress note. Diagnosis: Problems: (1) Major depressive disorder, recurrent episode (2) Schizoaffective disorder, bipolar type (3) Impulse control disorder, unspecified (4) Anxiety disorder, unspecified (5) Bipolar disorder, current episode mixed, severe, with psychotic features (6) Mild cognitive impairment (7) Shortness of breath YOHANNES LITTLE MD Nov 10, 2019 07:20
--- NOTE | 2019-11-10 08:32 | RAD ---
Tibia-fibula 2 views INDICATION: Follow-up ORIF COMPARISON: 10/31/2019 left tibia and fibula x-rays FINDINGS: Intramedullary nail through the left tibia remains present with good alignment of the fracture fragments. There is further evidence of callus formation across the tibial fracture line which is still visible. The fibular fracture line is less conspicuous and also demonstrates callus formation. Soft tissues are unremarkable. IMPRESSION: Evidence of further healing at the tibia and fibular fractures status post ORIF with good alignment. Electronically signed by: Shirley Rivera MD (11/10/2019 8:29 AM) [id number]
[2019-11-10] MEDS: ASPIRIN CHEWABLE 81 MG TABLET. PO SCH (09:35)
[2019-11-10] MEDS: busPIRone 10 MG TABLET. PO SCH ×2 (09:35→19:51)
[2019-11-10] MEDS: LACTOBACILLUS RHAMNOSUS GG 1 CAPSULE. PO SCH ×2 (09:35→19:51)
[2019-11-10] MEDS: MULTIVITAMIN with MINERAL TABLET. PO SCH (09:35)
[2019-11-10] MEDS: ENOXAPARIN 40 MG/0.4 ML SYRINGE. SQ SCH (09:36)
[2019-11-10] MEDS: PROPRANOLOL 20 MG TABLET. PO SCH ×2 (09:37→19:53)
[2019-11-10] MEDS: DEXTROMETHORPHAN/QUINIDINE 20/10MG CAPSULE. PO SCH ×2 (09:37→19:54)
[2019-11-10 16:06] VITALS: BP 138/87
[2019-11-10] MEDS: MELATONIN 3 MG TABLET PO SCH (19:52)
[2019-11-10] MEDS: traZODone 150 MG TABLET. PO SCH (19:52)
[2019-11-10] MEDS: clonazePAM 1 MG TABLET PO SCH (19:53)
[2019-11-10] MEDS: DIVALPROEX ER 500 MG TAB.ER.24H PO SCH (19:54)
--- NOTE | 2019-11-10 21:59 | PDOC ---
Exam Note: John Note: Please also refer to the separate dictated note~for this date of service dictated separately.~Patient seen individually. Discussed the patient with Nursing staff reviewed the chart.~Reviewed interim history and current functioning. Reviewed vital signs,~Labs/ Radiology~and current medications noted below. Continue current treatment with the changes noted in the dictated addendum note Assessment: Vital Signs/I&O: Vital Signs Date Time Temp Pulse Resp B/P (MAP) Pulse Ox O2 Delivery O2 Flow Rate FiO2 11/10/19 20:32 97.7 97 11/10/19 19:53 75 138/87 11/10/19 16:06 18 11/09/19 15:17 Room Air I & O 11/09/19 11/09/19 11/10/19 15:00 23:00 07:00 Intake Total 600 ml 120 ml Balance 600 ml 120 ml Current Medications: I have reviewed the current psychotropics carefully including drug interactions. Risk benefit ratio favors no change other than as noted in my dictated progress note. Diagnosis: Problems: (1) Major depressive disorder, recurrent episode (2) Schizoaffective disorder, bipolar type (3) Impulse control disorder, unspecified (4) Anxiety disorder, unspecified (5) Bipolar disorder, current episode mixed, severe, with psychotic features (6) Mild cognitive impairment (7) Shortness of breath YOHANNES LITTLE MD Nov 10, 2019 21:59
[2019-11-11 05:56] VITALS: BP 163/89
[2019-11-11] MEDS: DEXTROMETHORPHAN/QUINIDINE 20/10MG CAPSULE. PO SCH ×2 (09:03→19:54)
[2019-11-11] MEDS: ASPIRIN CHEWABLE 81 MG TABLET. PO SCH (09:03)
[2019-11-11] MEDS: busPIRone 10 MG TABLET. PO SCH ×2 (09:03→19:53)
[2019-11-11] MEDS: LACTOBACILLUS RHAMNOSUS GG 1 CAPSULE. PO SCH ×2 (09:03→19:53)
[2019-11-11] MEDS: PROPRANOLOL 20 MG TABLET. PO SCH ×2 (09:03→19:54)
[2019-11-11] MEDS: MULTIVITAMIN with MINERAL TABLET. PO SCH (09:03)
[2019-11-11] MEDS: ENOXAPARIN 40 MG/0.4 ML SYRINGE. SQ SCH (09:04)
[2019-11-11 09:58] LABS: BASO % 0 % (0-3); EOS % 1 % (0-3); HEMOGLOBIN 14.1 g/dL (12.0-15.5); LYMPH # 0.9 x10^3/uL (1.0-4.8); LYMPH % 16 % (24-48); MEAN CORPUSCULAR HEMOGLOBIN 31 pg (25-35); MEAN CORPUSCULAR HGB CONC 34 g/dL (31-37); MEAN CORPUSCULAR VOLUME 89 fL (79-100); MONO # 0.7 x10^3/uL (0.0-1.1); MONO % 13 % (0-9); NEUT # 3.7 x10^3uL (1.8-7.7); NEUT % 70 % (31-73); PLATELET COUNT 210 x10^3/uL (140-400); WHITE BLOOD COUNT 5.3 x10^3/uL (4.0-11.0)
[2019-11-11 10:14] LABS: ALBUMIN 3.8 g/dL (3.4-5.0); CALCIUM 9.5 mg/dL (8.5-10.1); CREATININE 0.7 mg/dL (0.6-1.0); GFR 84.5; POTASSIUM 3.9 mmol/L (3.5-5.1); TOTAL BILIRUBIN 0.4 mg/dL (0.2-1.0); TOTAL PROTEIN 7.5 g/dL (6.4-8.2)
[2019-11-11] MEDS: oxyCODONE IR 5 MG TABLET PO PRN ×2 (11:10→15:38)
[2019-11-11 16:01] VITALS: BP 140/84
[2019-11-11] MEDS: clonazePAM 1 MG TABLET PO SCH (19:53)
[2019-11-11] MEDS: traZODone 150 MG TABLET. PO SCH (19:53)
[2019-11-11] MEDS: MELATONIN 3 MG TABLET PO SCH (19:55)
[2019-11-11] MEDS: DIVALPROEX ER 500 MG TAB.ER.24H PO SCH (19:55)
--- NOTE | 2019-11-11 22:00 | PDOC ---
Exam Note: John Note: Please also refer to the separate dictated note~for this date of service dictated separately.~Patient seen individually. Discussed the patient with Nursing staff reviewed the chart.~Reviewed interim history and current functioning. Reviewed vital signs,~Labs/ Radiology~and current medications noted below. Continue current treatment with the changes noted in the dictated addendum note Assessment: Vital Signs/I&O: Vital Signs Date Time Temp Pulse Resp B/P (MAP) Pulse Ox O2 Delivery O2 Flow Rate FiO2 11/11/19 20:03 98.2 11/11/19 19:54 76 140/84 11/11/19 16:40 20 11/11/19 16:01 95 11/11/19 08:44 Room Air I & O 11/10/19 11/10/19 11/11/19 15:00 23:00 07:00 Intake Total 480 ml 480 ml Balance 480 ml 480 ml Labs: Laboratory Tests Test 11/11/19 09:35 White Blood Count 5.3 x10^3/uL (4.0-11.0) Red Blood Count 4.60 x10^6/uL (3.50-5.40) Hemoglobin 14.1 g/dL (12.0-15.5) Hematocrit 41.0 % (36.0-47.0) Mean Corpuscular Volume 89 fL (79-100) Mean Corpuscular Hemoglobin 31 pg (25-35) Mean Corpuscular Hemoglobin Concent 34 g/dL (31-37) Red Cell Distribution Width 13.0 % (11.5-14.5) Platelet Count 210 x10^3/uL (140-400) Neutrophils (%) (Auto) 70 % (31-73) Lymphocytes (%) (Auto) 16 % (24-48) L Monocytes (%) (Auto) 13 % (0-9) H Eosinophils (%) (Auto) 1 % (0-3) Basophils (%) (Auto) 0 % (0-3) Neutrophils # (Auto) 3.7 x10^3uL (1.8-7.7) Lymphocytes # (Auto) 0.9 x10^3/uL (1.0-4.8) L Monocytes # (Auto) 0.7 x10^3/uL (0.0-1.1) Eosinophils # (Auto) 0.0 x10^3/uL (0.0-0.7) Basophils # (Auto) 0.0 x10^3/uL (0.0-0.2) Sodium Level 134 mmol/L (136-145) L Potassium Level 3.9 mmol/L (3.5-5.1) Chloride Level 96 mmol/L (98-107) L Carbon Dioxide Level 30 mmol/L (21-32) Anion Gap 8 (6-14) Blood Urea Nitrogen 11 mg/dL (7-20) Creatinine 0.7 mg/dL (0.6-1.0) Estimated GFR (Cockcroft-Gault) 84.5 BUN/Creatinine Ratio 16 (6-20) Glucose Level 185 mg/dL (70-99) H Calcium Level 9.5 mg/dL (8.5-10.1) Total Bilirubin 0.4 mg/dL (0.2-1.0) Aspartate Amino Transferase (AST) 12 U/L (15-37) L Alanine Aminotransferase (ALT) 17 U/L (14-59) Alkaline Phosphatase 227 U/L (46-116) H Total Protein 7.5 g/dL (6.4-8.2) Albumin 3.8 g/dL (3.4-5.0) Albumin/Globulin Ratio 1.0 (1.0-1.7) Current Medications: I have reviewed the current psychotropics carefully including drug interactions. Risk benefit ratio favors no change other than as noted in my dictated progress note. Diagnosis: Problems: (1) Major depressive disorder, recurrent episode (2) Schizoaffective disorder, bipolar type (3) Impulse control disorder, unspecified (4) Anxiety disorder, unspecified (5) Bipolar disorder, current episode mixed, severe, with psychotic features (6) Mild cognitive impairment (7) Shortness of breath YOHANNES LITTLE MD Nov 11, 2019 22:00
[2019-11-12] MEDS: traZODone 150 MG TABLET. PO SCH ×2 (01:26→19:40)
[2019-11-12] MEDS: traZODone 150 MG TABLET. PO PRN (01:26)
[2019-11-12 06:06] VITALS: BP 155/75
--- NOTE | 2019-11-12 06:59 | PDOC ---
Exam Note: John Note: This note is a late entry for 11/10/2019 covers elements not covered in my initial note. Subjective: The patient was evaluated on telehealth rounds in the evening of 11/10/2019 with Sheri MCGOWAN. Per Sheri MCGOWAN, she slept 7-3/4 hours previous night. She has been attention seeking for her medications, frequently up to the nursing station, knocking repeatedly at the nursing door asking for sleeping pills during the morning, oblivious of the inappropriateness of this. Review of Systems: Ambulation impaired with walker. No CV, , pulmonary, eye system symptoms on review. Mental Status Exam: Oriented to herself and situation. She was pleasant, verbal, smiling as I met with her on telehealth rounds. Speech coherent. Abstraction fair. Computation impaired. Language function intact. Attention span short. Mood and affect improved. Laboratory Data: Reviewed. Impression: Bipolar disorder mixed with psychotic features. Mild cognitive impairment. Anxiety disorder unspecified. Impulse control disorder unspecified. Plan: No change from initial note. Assessment: Vital Signs/I&O: Vital Signs Date Time Temp Pulse Resp B/P (MAP) Pulse Ox O2 Delivery O2 Flow Rate FiO2 11/12/19 06:06 97.5 64 16 155/75 (101) 98 11/11/19 08:44 Room Air I & O 11/11/19 11/11/19 11/12/19 15:00 23:00 07:00 Intake Total 720 ml 600 ml Balance 720 ml 600 ml Labs: Laboratory Tests Test 11/11/19 09:35 White Blood Count 5.3 x10^3/uL (4.0-11.0) Red Blood Count 4.60 x10^6/uL (3.50-5.40) Hemoglobin 14.1 g/dL (12.0-15.5) Hematocrit 41.0 % (36.0-47.0) Mean Corpuscular Volume 89 fL (79-100) Mean Corpuscular Hemoglobin 31 pg (25-35) Mean Corpuscular Hemoglobin Concent 34 g/dL (31-37) Red Cell Distribution Width 13.0 % (11.5-14.5) Platelet Count 210 x10^3/uL (140-400) Neutrophils (%) (Auto) 70 % (31-73) Lymphocytes (%) (Auto) 16 % (24-48) L Monocytes (%) (Auto) 13 % (0-9) H Eosinophils (%) (Auto) 1 % (0-3) Basophils (%) (Auto) 0 % (0-3) Neutrophils # (Auto) 3.7 x10^3uL (1.8-7.7) Lymphocytes # (Auto) 0.9 x10^3/uL (1.0-4.8) L Monocytes # (Auto) 0.7 x10^3/uL (0.0-1.1) Eosinophils # (Auto) 0.0 x10^3/uL (0.0-0.7) Basophils # (Auto) 0.0 x10^3/uL (0.0-0.2) Sodium Level 134 mmol/L (136-145) L Potassium Level 3.9 mmol/L (3.5-5.1) Chloride Level 96 mmol/L (98-107) L Carbon Dioxide Level 30 mmol/L (21-32) Anion Gap 8 (6-14) Blood Urea Nitrogen 11 mg/dL (7-20) Creatinine 0.7 mg/dL (0.6-1.0) Estimated GFR (Cockcroft-Gault) 84.5 BUN/Creatinine Ratio 16 (6-20) Glucose Level 185 mg/dL (70-99) H Calcium Level 9.5 mg/dL (8.5-10.1) Total Bilirubin 0.4 mg/dL (0.2-1.0) Aspartate Amino Transferase (AST) 12 U/L (15-37) L Alanine Aminotransferase (ALT) 17 U/L (14-59) Alkaline Phosphatase 227 U/L (46-116) H Total Protein 7.5 g/dL (6.4-8.2) Albumin 3.8 g/dL (3.4-5.0) Albumin/Globulin Ratio 1.0 (1.0-1.7) Current Medications: I have reviewed the current psychotropics carefully including drug interactions. Risk benefit ratio favors no change other than as noted in my dictated progress note. Diagnosis: Problems: (1) Major depressive disorder, recurrent episode (2) Schizoaffective disorder, bipolar type (3) Impulse control disorder, unspecified (4) Anxiety disorder, unspecified (5) Shortness of breath (6) Mild cognitive impairment YOHANNES LITTLE MD Nov 12, 2019 06:59
--- NOTE | 2019-11-12 07:15 | PDOC ---
Exam Note: John Note: This note is a late entry for 11/11/2019 covers elements not covered in my initial note. Subjective: The patient was evaluated on telehealth rounds in the evening of 11/11/2019 with Corine MCGOWAN. Per Corine RN, she slept 7-3/4 hours previous night. She has been less sedated during the day. Mood has been up and down per nursing staff. Review of Systems: Ambulation impaired with walker. No CV, , pulmonary, eye system symptoms on review. Mental Status Exam: Oriented to herself and situation. She is pleasant, verbal, quite animated as I met with her on telehealth rounds. No crying spells noted. Speech coherent. Abstraction fair. Computation impaired. Language function intact. Attention span short. Mood and affect less labile. Laboratory Data: Reviewed. Impression: Bipolar disorder mixed with psychotic features. Mild cognitive impairment. Anxiety disorder unspecified. Impulse control disorder unspecified. Plan: Continue rest of the psychotropics unchanged. Assessment: Vital Signs/I&O: Vital Signs Date Time Temp Pulse Resp B/P (MAP) Pulse Ox O2 Delivery O2 Flow Rate FiO2 11/12/19 06:06 97.5 64 16 155/75 (101) 98 11/11/19 08:44 Room Air I & O 11/11/19 11/11/19 11/12/19 15:00 23:00 07:00 Intake Total 720 ml 600 ml Balance 720 ml 600 ml Labs: Laboratory Tests Test 11/11/19 09:35 White Blood Count 5.3 x10^3/uL (4.0-11.0) Red Blood Count 4.60 x10^6/uL (3.50-5.40) Hemoglobin 14.1 g/dL (12.0-15.5) Hematocrit 41.0 % (36.0-47.0) Mean Corpuscular Volume 89 fL (79-100) Mean Corpuscular Hemoglobin 31 pg (25-35) Mean Corpuscular Hemoglobin Concent 34 g/dL (31-37) Red Cell Distribution Width 13.0 % (11.5-14.5) Platelet Count 210 x10^3/uL (140-400) Neutrophils (%) (Auto) 70 % (31-73) Lymphocytes (%) (Auto) 16 % (24-48) L Monocytes (%) (Auto) 13 % (0-9) H Eosinophils (%) (Auto) 1 % (0-3) Basophils (%) (Auto) 0 % (0-3) Neutrophils # (Auto) 3.7 x10^3uL (1.8-7.7) Lymphocytes # (Auto) 0.9 x10^3/uL (1.0-4.8) L Monocytes # (Auto) 0.7 x10^3/uL (0.0-1.1) Eosinophils # (Auto) 0.0 x10^3/uL (0.0-0.7) Basophils # (Auto) 0.0 x10^3/uL (0.0-0.2) Sodium Level 134 mmol/L (136-145) L Potassium Level 3.9 mmol/L (3.5-5.1) Chloride Level 96 mmol/L (98-107) L Carbon Dioxide Level 30 mmol/L (21-32) Anion Gap 8 (6-14) Blood Urea Nitrogen 11 mg/dL (7-20) Creatinine 0.7 mg/dL (0.6-1.0) Estimated GFR (Cockcroft-Gault) 84.5 BUN/Creatinine Ratio 16 (6-20) Glucose Level 185 mg/dL (70-99) H Calcium Level 9.5 mg/dL (8.5-10.1) Total Bilirubin 0.4 mg/dL (0.2-1.0) Aspartate Amino Transferase (AST) 12 U/L (15-37) L Alanine Aminotransferase (ALT) 17 U/L (14-59) Alkaline Phosphatase 227 U/L (46-116) H Total Protein 7.5 g/dL (6.4-8.2) Albumin 3.8 g/dL (3.4-5.0) Albumin/Globulin Ratio 1.0 (1.0-1.7) Current Medications: I have reviewed the current psychotropics carefully including drug interactions. Risk benefit ratio favors no change other than as noted in my dictated progress note. Diagnosis: Problems: (1) Major depressive disorder, recurrent episode (2) Schizoaffective disorder, bipolar type (3) Impulse control disorder, unspecified (4) Anxiety disorder, unspecified (5) Bipolar disorder, current episode mixed, severe, with psychotic features (6) Mild cognitive impairment (7) Shortness of breath ANABEL,MAN M MD Nov 12, 2019 07:15
[2019-11-12] MEDS: LACTOBACILLUS RHAMNOSUS GG 1 CAPSULE. PO SCH ×2 (08:47→19:34)
[2019-11-12] MEDS: busPIRone 10 MG TABLET. PO SCH ×2 (08:47→19:35)
[2019-11-12] MEDS: PROPRANOLOL 20 MG TABLET. PO SCH ×2 (08:47→19:34)
[2019-11-12] MEDS: ASPIRIN CHEWABLE 81 MG TABLET. PO SCH (08:47)
[2019-11-12] MEDS: ACETAMINOPHEN 650 MG/20.3 ML SOLUTION. PO PRN ×2 (08:48→14:55)
[2019-11-12] MEDS: DEXTROMETHORPHAN/QUINIDINE 20/10MG CAPSULE. PO SCH ×2 (08:48→19:34)
[2019-11-12] MEDS: MULTIVITAMIN with MINERAL TABLET. PO SCH (08:48)
[2019-11-12] MEDS: oxyCODONE IR 5 MG TABLET PO PRN ×2 (08:48→17:54)
[2019-11-12] MEDS: ENOXAPARIN 40 MG/0.4 ML SYRINGE. SQ SCH (08:49)
[2019-11-12] MEDS: CHOLECALCIFEROL (VITAMIN D3) 50,000 UNIT CAPSULE PO SCH (08:50)
[2019-11-12 15:30] VITALS: BP 133/89
[2019-11-12] MEDS: HALOPERIDOL 5 MG TABLET PO PRN (17:54)
[2019-11-12 18:01] LABS: BACTERIA,URINE FEW /HPF (0-FEW); BILIRUBIN,URINE NEG (NEG); CLARITY,URINE HAZY; COLOR,URINE YELLOW; GLUCOSE,URINE NEG (NEG); NITRITE,URINE NEG (NEG); SQUAMOUS EPITHELIAL CELL,UR MOD /LPF; UROBILINOGEN,URINE 0.2 mg/dL (0.2 mg/dL)
[2019-11-12] MEDS: MELATONIN 3 MG TABLET PO SCH (19:35)
[2019-11-12] MEDS: DIVALPROEX ER 500 MG TAB.ER.24H PO SCH (19:35)
[2019-11-12] MEDS: clonazePAM 1 MG TABLET PO SCH (19:35)
--- NOTE | 2019-11-12 22:15 | PDOC ---
Exam Note: John Note: Please also refer to the separate dictated note~for this date of service dictated separately.~Patient seen individually. Discussed the patient with Nursing staff reviewed the chart.~Reviewed interim history and current functioning. Reviewed vital signs,~Labs/ Radiology~and current medications noted below. Continue current treatment with the changes noted in the dictated addendum note Assessment: Vital Signs/I&O: Vital Signs Date Time Temp Pulse Resp B/P (MAP) Pulse Ox O2 Delivery O2 Flow Rate FiO2 11/12/19 20:05 98.2 97 11/12/19 19:54 Room Air 11/12/19 19:34 75 133/89 11/12/19 17:54 20 I & O 11/11/19 11/11/19 11/12/19 15:00 23:00 07:00 Intake Total 720 ml 600 ml Balance 720 ml 600 ml Labs: Laboratory Tests Test 11/12/19 17:40 Urine Collection Type Unknown Urine Color Yellow Urine Clarity Hazy Urine pH 5.5 Urine Specific [place] >=1.030 Urine Protein Trace (NEG-TRACE) Urine Glucose (UA) Neg mg/dL (NEG) Urine Ketones (Stick) Neg mg/dL (NEG) Urine Blood Neg (NEG) Urine Nitrite Neg (NEG) Urine Bilirubin Neg (NEG) Urine Urobilinogen Dipstick 0.2 mg/dL (0.2 mg/dL) Urine Leukocyte Esterase Neg (NEG) Urine RBC 1-2 /HPF (0-2) Urine WBC 1-4 /HPF (0-4) Urine Squamous Epithelial Cells Mod /LPF Urine Bacteria Few /HPF (0-FEW) Urine Mucus Marked /LPF Current Medications: Meds: Current Medications Medications (Trade) Dose Ordered Sig/Yuki Route PRN Reason Start Time Stop Time Status Last Admin Dose Admin Acetaminophen (Tylenol Oral Soln) 650 mg PRN Q6HRS PRN PO MILD PAIN / TEMP > 100.3'F 11/12/19 07:15 11/12/19 14:55 I have reviewed the current psychotropics carefully including drug interactions. Risk benefit ratio favors no change other than as noted in my dictated progress note. Diagnosis: Problems: (1) Major depressive disorder, recurrent episode (2) Schizoaffective disorder, bipolar type (3) Impulse control disorder, unspecified (4) Anxiety disorder, unspecified (5) Bipolar disorder, current episode mixed, severe, with psychotic features (6) Mild cognitive impairment (7) Shortness of breath YOHANNES LITTLE MD Nov 12, 2019 22:15
[2019-11-13 06:07] VITALS: BP 160/84
[2019-11-13] MEDS: PROPRANOLOL 20 MG TABLET. PO SCH ×2 (08:13→20:15)
[2019-11-13] MEDS: DEXTROMETHORPHAN/QUINIDINE 20/10MG CAPSULE. PO SCH ×2 (08:13→20:19)
[2019-11-13] MEDS: ACETAMINOPHEN 650 MG/20.3 ML SOLUTION. PO PRN ×3 (08:13→20:18)
[2019-11-13] MEDS: MULTIVITAMIN with MINERAL TABLET. PO SCH (08:14)
[2019-11-13] MEDS: ASPIRIN CHEWABLE 81 MG TABLET. PO SCH (08:14)
[2019-11-13] MEDS: busPIRone 10 MG TABLET. PO SCH ×2 (08:14→20:18)
[2019-11-13] MEDS: LACTOBACILLUS RHAMNOSUS GG 1 CAPSULE. PO SCH ×2 (08:14→20:15)
[2019-11-13] MEDS: oxyCODONE IR 5 MG TABLET PO PRN (10:25)
[2019-11-13 15:30] VITALS: BP 151/83
[2019-11-13] MEDS: DIVALPROEX ER 500 MG TAB.ER.24H PO SCH (20:16)
[2019-11-13] MEDS: traZODone 150 MG TABLET. PO SCH (20:16)
[2019-11-13] MEDS: MELATONIN 3 MG TABLET PO SCH (20:17)
[2019-11-13] MEDS: clonazePAM 0.5 MG TABLET PO SCH (20:18)
--- NOTE | 2019-11-13 22:01 | PDOC ---
Exam Note: John Note: Please also refer to the separate dictated note~for this date of service dictated separately.~Patient seen individually. Discussed the patient with Nursing staff reviewed the chart.~Reviewed interim history and current functioning. Reviewed vital signs,~Labs/ Radiology~and current medications noted below. Continue current treatment with the changes noted in the dictated addendum note Assessment: Vital Signs/I&O: Vital Signs Date Time Temp Pulse Resp B/P (MAP) Pulse Ox O2 Delivery O2 Flow Rate FiO2 11/13/19 20:15 84 151/83 11/13/19 19:46 97.8 97 11/13/19 15:30 18 11/13/19 06:07 Room Air I & O 11/12/19 11/12/19 11/13/19 15:00 23:00 07:00 Intake Total 840 ml 600 ml Balance 840 ml 600 ml Current Medications: Meds: Current Medications Medications (Trade) Dose Ordered Sig/Yuki Route PRN Reason Start Time Stop Time Status Last Admin Dose Admin Clonazepam (KlonoPIN) 0.5 mg QHS PO 11/13/19 21:00 11/13/19 20:18 I have reviewed the current psychotropics carefully including drug interactions. Risk benefit ratio favors no change other than as noted in my dictated progress note. Diagnosis: Problems: (1) Major depressive disorder, recurrent episode (2) Schizoaffective disorder, bipolar type (3) Impulse control disorder, unspecified (4) Anxiety disorder, unspecified (5) Bipolar disorder, current episode mixed, severe, with psychotic features (6) Mild cognitive impairment YOHANNES LITTLE MD Nov 13, 2019 22:01
[2019-11-14] MEDS: traZODone 150 MG TABLET. PO PRN (00:35)
[2019-11-14 06:04] VITALS: BP 157/83
[2019-11-14] MEDS: busPIRone 10 MG TABLET. PO SCH ×2 (08:44→20:14)
[2019-11-14] MEDS: oxyCODONE IR 5 MG TABLET PO PRN ×3 (08:44→20:15)
[2019-11-14] MEDS: DEXTROMETHORPHAN/QUINIDINE 20/10MG CAPSULE. PO SCH ×2 (08:44→20:13)
[2019-11-14] MEDS: LACTOBACILLUS RHAMNOSUS GG 1 CAPSULE. PO SCH ×2 (08:44→20:14)
[2019-11-14] MEDS: MULTIVITAMIN with MINERAL TABLET. PO SCH (08:45)
[2019-11-14] MEDS: PROPRANOLOL 20 MG TABLET. PO SCH ×2 (08:45→20:14)
[2019-11-14] MEDS: ASPIRIN CHEWABLE 81 MG TABLET. PO SCH (08:45)
[2019-11-14] MEDS: ACETAMINOPHEN 650 MG/20.3 ML SOLUTION. PO PRN (13:02)
[2019-11-14 16:08] VITALS: BP 133/85
[2019-11-14] MEDS: MELATONIN 3 MG TABLET PO SCH (20:13)
[2019-11-14] MEDS: traZODone 150 MG TABLET. PO SCH (20:14)
[2019-11-14] MEDS: DIVALPROEX ER 500 MG TAB.ER.24H PO SCH (20:14)
[2019-11-14] MEDS: clonazePAM 0.5 MG TABLET PO SCH (20:15)
--- NOTE | 2019-11-14 22:22 | PDOC ---
Exam Note: John Note: Please also refer to the separate dictated note~for this date of service dictated separately.~Patient seen individually. Discussed the patient with Nursing staff reviewed the chart.~Reviewed interim history and current functioning. Reviewed vital signs,~Labs/ Radiology~and current medications noted below. Continue current treatment with the changes noted in the dictated addendum note Assessment: Vital Signs/I&O: Vital Signs Date Time Temp Pulse Resp B/P (MAP) Pulse Ox O2 Delivery O2 Flow Rate FiO2 11/14/19 20:25 97.9 95 11/14/19 20:15 Room Air 11/14/19 20:14 79 133/85 11/14/19 16:08 18 I & O 11/13/19 11/13/19 11/14/19 14:59 22:59 06:59 Intake Total 480 ml 360 ml Balance 480 ml 360 ml Current Medications: I have reviewed the current psychotropics carefully including drug interactions. Risk benefit ratio favors no change other than as noted in my dictated progress note. Diagnosis: Problems: (1) Major depressive disorder, recurrent episode (2) Schizoaffective disorder, bipolar type (3) Impulse control disorder, unspecified (4) Anxiety disorder, unspecified (5) Bipolar disorder, current episode mixed, severe, with psychotic features (6) Mild cognitive impairment YOHANNES LITTLE MD Nov 14, 2019 22:22
[2019-11-15] MEDS: ACETAMINOPHEN 650 MG/20.3 ML SOLUTION. PO PRN ×3 (01:21→20:10)
[2019-11-15] MEDS: oxyCODONE IR 5 MG TABLET PO PRN ×3 (04:58→17:14)
[2019-11-15 05:54] VITALS: BP 149/78
--- NOTE | 2019-11-15 07:09 | PDOC ---
Exam Note: John Note: This note is a late entry for 11/12/2019 covers elements not covered in my initial note. Subjective: The patient was evaluated on telehealth rounds in the evening of 11/12/2019 with Corine MCGOWAN. Per Corine MCGOWAN, she slept 4-1/2 hours previous night. She is in and out of her room, anxious, restless, constantly into the nursing station. At one point she has talked to the nursing staff about seeing a dog in the hallway, people in the hallway. We will check UA to make sure she does not have UTI to explain this. Review of Systems: Ambulation impaired with walker. No CV, , pulmonary, eye system symptoms on review. Mental Status Exam: Oriented to herself and situation. She was very pleasant, interacting smiling as I met her. We processed her anxiety, ways to distract herself to reduce anxiety. Speech coherent. Abstraction fair. Computation impaired. Language function intact. Attention span short. Mood and affect anxious. Laboratory Data: Reviewed. Impression: Bipolar disorder mixed with psychotic features. Mild cognitive impairment. Anxiety disorder unspecified. Impulse control disorder unspecified. Plan: Continue rest of the psychotropics unchanged. Assessment: Vital Signs/I&O: Vital Signs Date Time Temp Pulse Resp B/P (MAP) Pulse Ox O2 Delivery O2 Flow Rate FiO2 11/15/19 05:54 97.8 76 14 149/78 (101) 96 11/15/19 04:58 Room Air I & O 11/14/19 11/14/19 11/15/19 15:00 23:00 07:00 Intake Total 720 ml 360 ml Balance 720 ml 360 ml Labs: Laboratory Tests Test 11/14/19 10:15 Coronavirus (PCR) Not detected (Not Detected) Current Medications: I have reviewed the current psychotropics carefully including drug interactions. Risk benefit ratio favors no change other than as noted in my dictated progress note. Diagnosis: Problems: (1) Major depressive disorder, recurrent episode (2) Schizoaffective disorder, bipolar type (3) Impulse control disorder, unspecified (4) Anxiety disorder, unspecified (5) Bipolar disorder, current episode mixed, severe, with psychotic features (6) Mild cognitive impairment (7) Shortness of breath YOHANNES LITTLE MD Nov 15, 2019 07:09
--- NOTE | 2019-11-15 07:24 | PDOC ---
Exam Note: John Note: This note is a late entry for 11/13/2019 covers elements not covered in my initial note. Subjective: The patient was evaluated on telehealth rounds in the evening of 11/13/2019 with Sheri MCGOWAN. She slept 4 hours previous night. She was having some hallucinations previous night of dogs and children, nothing repeated on 11/12. Review of Systems: Ambulation impaired with walker. No CV, , pulmonary, eye system symptoms on review. Mental Status Exam: Oriented to herself and situation. She is pleasant, interactive on telehealth rounds. Speech coherent. Abstraction fair. Computation impaired. Language function intact. Attention span short. Mood and affect less labile. Laboratory Data: Reviewed. Impression: Bipolar disorder mixed with psychotic features. Mild cognitive impairment. Anxiety disorder unspecified. Impulse control disorder unspecified. Plan: Continue rest of the psychotropics unchanged. Assessment: Vital Signs/I&O: Vital Signs Date Time Temp Pulse Resp B/P (MAP) Pulse Ox O2 Delivery O2 Flow Rate FiO2 11/15/19 05:54 97.8 76 14 149/78 (101) 96 11/15/19 04:58 Room Air I & O 11/14/19 11/14/19 11/15/19 15:00 23:00 07:00 Intake Total 720 ml 360 ml Balance 720 ml 360 ml Labs: Laboratory Tests Test 11/14/19 10:15 Coronavirus (PCR) Not detected (Not Detected) Current Medications: I have reviewed the current psychotropics carefully including drug interactions. Risk benefit ratio favors no change other than as noted in my dictated progress note. Diagnosis: Problems: (1) Major depressive disorder, recurrent episode (2) Schizoaffective disorder, bipolar type (3) Impulse control disorder, unspecified (4) Anxiety disorder, unspecified (5) Bipolar disorder, current episode mixed, severe, with psychotic features (6) Mild cognitive impairment (7) Shortness of breath YOHANNES LITTLE MD Nov 15, 2019 07:24
--- NOTE | 2019-11-15 07:32 | PDOC ---
Exam Note: John Note: This note is a late entry for 11/14/2019 covers elements not covered in my initial note. Subjective: The patient was evaluated on telehealth rounds in the evening of 11/14/2019 with Autumn MCGOWAN. Per Autumn MCGOWAN, she slept 6-1/4 hours previous night. She is again back at the nursing window frequently but redirects. She did talk to her sister today and processed this during the audiovisual rounds. She is wanting cheeseburger for lunch and dinner, somewhat lower functioning at times. Review of Systems: Ambulation impaired with walker. No CV, , pulmonary, eye system symptoms on review. Mental Status Exam: Oriented to herself and situation. She is pleasant, quite animated as I met with her on telehealth rounds. Speech coherent. Abstraction fair. Computation impaired. Language function intact. Attention span short. Mood and affect anxious. Laboratory Data: Reviewed. Impression: Bipolar disorder mixed with psychotic features. Mild cognitive impairment. Anxiety disorder unspecified. Impulse control disorder unspecified. Plan: Continue rest of the psychotropics unchanged. Assessment: Vital Signs/I&O: Vital Signs Date Time Temp Pulse Resp B/P (MAP) Pulse Ox O2 Delivery O2 Flow Rate FiO2 11/15/19 05:54 97.8 76 14 149/78 (101) 96 11/15/19 04:58 Room Air I & O 11/14/19 11/14/19 11/15/19 15:00 23:00 07:00 Intake Total 720 ml 360 ml Balance 720 ml 360 ml Labs: Laboratory Tests Test 11/14/19 10:15 Coronavirus (PCR) Not detected (Not Detected) Current Medications: I have reviewed the current psychotropics carefully including drug interactions. Risk benefit ratio favors no change other than as noted in my dictated progress note. Diagnosis: Problems: (1) Major depressive disorder, recurrent episode (2) Schizoaffective disorder, bipolar type (3) Impulse control disorder, unspecified (4) Anxiety disorder, unspecified (5) Bipolar disorder, current episode mixed, severe, with psychotic features (6) Mild cognitive impairment (7) Shortness of breath YOHANENS LITTLE MD Nov 15, 2019 07:31
[2019-11-15] MEDS: LACTOBACILLUS RHAMNOSUS GG 1 CAPSULE. PO SCH ×2 (07:58→20:09)
[2019-11-15] MEDS: MULTIVITAMIN with MINERAL TABLET. PO SCH (07:58)
[2019-11-15] MEDS: ASPIRIN CHEWABLE 81 MG TABLET. PO SCH (07:58)
[2019-11-15] MEDS: busPIRone 10 MG TABLET. PO SCH ×2 (07:58→20:08)
[2019-11-15] MEDS: DEXTROMETHORPHAN/QUINIDINE 20/10MG CAPSULE. PO SCH ×2 (08:00→20:08)
[2019-11-15] MEDS: PROPRANOLOL 20 MG TABLET. PO SCH ×2 (08:00→20:09)
[2019-11-15 15:23] VITALS: BP 126/65
[2019-11-15] MEDS: MELATONIN 3 MG TABLET PO SCH (20:08)
[2019-11-15] MEDS: DIVALPROEX ER 500 MG TAB.ER.24H PO SCH (20:08)
[2019-11-15] MEDS: clonazePAM 0.5 MG TABLET PO SCH (20:08)
[2019-11-15] MEDS: traZODone 150 MG TABLET. PO SCH (20:09)
--- NOTE | 2019-11-15 21:53 | PDOC ---
Exam Note: John Note: Please also refer to the separate dictated note~for this date of service dictated separately.~Patient seen individually. Discussed the patient with Nursing staff reviewed the chart.~Reviewed interim history and current functioning. Reviewed vital signs,~Labs/ Radiology~and current medications noted below. Continue current treatment with the changes noted in the dictated addendum note Assessment: Vital Signs/I&O: Vital Signs Date Time Temp Pulse Resp B/P (MAP) Pulse Ox O2 Delivery O2 Flow Rate FiO2 11/15/19 20:27 97.7 95 11/15/19 20:09 81 126/65 11/15/19 15:23 18 11/15/19 04:58 Room Air I & O 11/14/19 11/14/19 11/15/19 15:00 23:00 07:00 Intake Total 720 ml 360 ml Balance 720 ml 360 ml Current Medications: I have reviewed the current psychotropics carefully including drug interactions. Risk benefit ratio favors no change other than as noted in my dictated progress note. Diagnosis: Problems: (1) Major depressive disorder, recurrent episode (2) Schizoaffective disorder, bipolar type (3) Impulse control disorder, unspecified (4) Anxiety disorder, unspecified (5) Bipolar disorder, current episode mixed, severe, with psychotic features (6) Mild cognitive impairment (7) Shortness of breath YOHANNES LITTLE MD Nov 15, 2019 21:53
[2019-11-16] MEDS ORDERED: ACET650S19 PO (00:35)
[2019-11-16] MEDS ORDERED: CHOL500021 PO (00:37)
[2019-11-16] MEDS ORDERED: KETO120S5 TP (00:38)
[2019-11-16] MEDS ORDERED: METH28OI2 TP (00:39)
[2019-11-16] MEDS ORDERED: LACT1CAP21 PO (00:39)
[2019-11-16] MEDS ORDERED: OXYC5TAB88 PO (00:40)
[2019-11-16] MEDS ORDERED: FLUV50TA2 PO (00:40)
[2019-11-16] MEDS ORDERED: TRAZ150T49 PO (00:41)
[2019-11-16 06:19] VITALS: BP 138/64
--- NOTE | 2019-11-16 06:46 | PDOC ---
Exam Note: John Note: This note is a late entry for 11/15/2019 covers elements not covered in my initial note. Subjective: The patient was evaluated on telehealth rounds in the evening of 11/15/2019 with Autumn MCGOWAN. Per Autumn MCGOWAN, she slept 3-3/4 hours previous night. She has been attention seeking, knocking at the nursing window repeatedly. She did talk to her sister once and I addressed this with her during telehealth rounds in the evening. Review of Systems: Ambulation impaired with walker. No CV, , pulmonary, eye system symptoms on review. Mental Status Exam: Oriented to herself and situation. She was pleasant, smiling at me, interactive. No crying spells. Speech coherent. Abstraction fair. Computation impaired. Language function intact. Attention span short. Mood lability much improved. Laboratory Data: Reviewed. Impression: Bipolar disorder mixed with psychotic features. Mild cognitive impairment. Anxiety disorder unspecified. Impulse control disorder unspecified. Plan: Transition the patient to the alf tomorrow. Assessment: Vital Signs/I&O: Vital Signs Date Time Temp Pulse Resp B/P (MAP) Pulse Ox O2 Delivery O2 Flow Rate FiO2 11/16/19 06:19 97.6 66 18 138/64 (88) 96 11/15/19 04:58 Room Air I & O 11/15/19 11/15/19 11/16/19 15:00 23:00 07:00 Intake Total 480 ml 480 ml Balance 480 ml 480 ml Current Medications: I have reviewed the current psychotropics carefully including drug interactions. Risk benefit ratio favors no change other than as noted in my dictated progress note. Diagnosis: Problems: (1) Major depressive disorder, recurrent episode (2) Schizoaffective disorder, bipolar type (3) Impulse control disorder, unspecified (4) Anxiety disorder, unspecified (5) Bipolar disorder, current episode mixed, severe, with psychotic features (6) Mild cognitive impairment (7) Shortness of breath YOHANNES LITTLE MD Nov 16, 2019 06:46
[2019-11-16] MEDS: LACTOBACILLUS RHAMNOSUS GG 1 CAPSULE. PO SCH (08:03)
[2019-11-16] MEDS: oxyCODONE IR 5 MG TABLET PO PRN (08:05)
[2019-11-16 08:06] VITALS: BP 138/64
[2019-11-16] MEDS: PROPRANOLOL 20 MG TABLET. PO SCH (08:06)
[2019-11-16] MEDS: busPIRone 10 MG TABLET. PO SCH (08:06)
[2019-11-16] MEDS: ASPIRIN CHEWABLE 81 MG TABLET. PO SCH (08:06)
[2019-11-16] MEDS: MULTIVITAMIN with MINERAL TABLET. PO SCH (08:06)
[2019-11-16] MEDS: DEXTROMETHORPHAN/QUINIDINE 20/10MG CAPSULE. PO SCH (09:00)
[2019-11-16] MEDS: ACETAMINOPHEN 650 MG/20.3 ML SOLUTION. PO PRN (10:29)
--- NOTE | 2019-11-16 21:51 | PDOC ---
Exam Note: John Note: Please also refer to the separate dictated note~for this date of service dictated separately.~Patient seen individually. Discussed the patient with Nursing staff reviewed the chart.~Reviewed interim history and current functioning. Reviewed vital signs,~Labs/ Radiology~and current medications noted below. Continue current treatment with the changes noted in the dictated addendum note Assessment: Vital Signs/I&O: Vital Signs Date Time Temp Pulse Resp B/P (MAP) Pulse Ox O2 Delivery O2 Flow Rate FiO2 11/16/19 09:15 98.1 96 11/16/19 08:06 66 138/64 11/16/19 06:19 18 11/15/19 04:58 Room Air I & O 11/15/19 11/15/19 11/16/19 15:00 23:00 07:00 Intake Total 480 ml 480 ml Balance 480 ml 480 ml Current Medications: I have reviewed the current psychotropics carefully including drug interactions. Risk benefit ratio favors no change other than as noted in my dictated progress note. Diagnosis: Problems: (1) Major depressive disorder, recurrent episode (2) Schizoaffective disorder, bipolar type (3) Impulse control disorder, unspecified (4) Anxiety disorder, unspecified (5) Bipolar disorder, current episode mixed, severe, with psychotic features (6) Mild cognitive impairment (7) Shortness of breath YOHANNES LITTLE MD Nov 16, 2019 21:51
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
== END 2019-11-16 10:45 | DRG 885 ==
LOC: ER 19:00 → GEROPSY 21:23
PROVIDERS: ADMIT Psychiatry & Neurology Psychiatry; ATTEND Psychiatry & Neurology Psychiatry
DX: F25.0 Schizoaffective disorder, bipolar type (principal); N39.0 Urinary tract infection, site not specified; E87.1 Hypo-osmolality and hyponatremia; F02.81 Dementia in other diseases classified elsewhere, unspecified severity, with behavioral disturbance; D64.9 Anemia, unspecified; E11.65 Type 2 diabetes mellitus with hyperglycemia; F41.1 Generalized anxiety disorder; F48.2 Pseudobulbar affect; F63.9 Impulse disorder, unspecified; G40.909 Epilepsy, unspecified, not intractable, without status epilepticus; G47.00 Insomnia, unspecified; M19.90 Unspecified osteoarthritis, unspecified site; I11.0 Hypertensive heart disease with heart failure; Z20.828 Contact with and (suspected) exposure to other viral communicable diseases; I49.9 Cardiac arrhythmia, unspecified; G30.9 Alzheimer's disease, unspecified; I50.9 Heart failure, unspecified; I77.1 Stricture of artery; K21.9 Gastro-esophageal reflux disease without esophagitis; Z79.82 Long term (current) use of aspirin; Z79.899 Other long term (current) drug therapy; Z91.81 History of falling; Z98.51 Tubal ligation status
CPT/HCPCS: 36415; 70450; 71045; 73590; 73610; 80048; 80053; 80061; 80076; 80164; 80307; 81001; 82140; 82306; 82550; 82607; 83036; 83540; 83550; 83690; 83735; 83880; 84436; 84443; 84480; 84484; 85025; 85379; 85610; 85730; 86140; 86592; 87086; 93005; 93971; 96361; 96374; J1650; J7120; Q0163; 97116; 99285-25; U0003-CS